=== PATIENT | female | born 1970 | race Caucasian/White ===

== ENCOUNTER 2022-10-07 13:46 | Outpatient (OUT) | payer BC, SELFPAY | END 2022-10-07 13:47 | disposition home or self-care (01) | LOC: PST 13:46 | PROVIDERS: PCP Family Medicine; Visit Provider Surgery | DX: Z01.818 Encounter for other preprocedural examination (principal); R10.32 Left lower quadrant pain; R19.4 Change in bowel habit ==

== ENCOUNTER 2023-01-06 09:33 | Emergency (ER) | payer BC, SELFPAY ==
[2023-01-06 09:39] VITALS: BP 145/81; PULSE 73; RESP 18; TEMP 36.8; O2SAT 98; BMI 31.8
[2023-01-06 10:59] VITALS: BP 149/77; PULSE 89; RESP 20; O2SAT 98
--- NOTE | 2023-01-06 11:07 | ED_ITS ---
HPI - Dental/Oral General Chief complaint: Dental/Oral Stated complaint: TOOTH PAIN Time Seen by Provider: 01/06/23 09:37 Source: patient Mode of arrival: walk-in Limitations: no limitations History of Present Illness HPI Narrative: the patient developed pain in the right upper rear molar a few days ago and it has steadily worsened before becoming much worse this morning. She tried calling her primary care provider and could not get an appointment. She called a dentist and has no appointment on Tuesday, January 10 but the dentist instructed her to come to the emergency department to get started on antibiotics and received medicines for pain. The patient did not take anything for pain this morning She denied any dental injury or fracture. She suspects she has a cavity or some other means of enamel compromise and is causing the pain. No facial swelling, lower jaw pain or neck pain. Related Data Home Medications Medication Instructions Recorded Confirmed citalopram 20 mg tablet 20 mg PO QDAY 10/07/22 10/07/22 linaclotide 145 mcg capsule 145 mcg PO QDAY 10/07/22 10/07/22 (Linzess) Previous Rx's Medication Instructions Recorded clindamycin HCl 150 mg capsule 450 mg PO Q8H 7 days #63 caps 01/06/23 (Cleocin HCl) nabumetone 750 mg tablet 750 mg PO BID PRN pain #14 tabs 01/06/23 Allergies Allergy/AdvReac Type Severity Reaction Status Date / Time No Known Drug Allergies Allergy Verified 10/07/22 13:30 [facility] Medical History (Updated 01/06/23 @ 11:06 by Adi Small) Anemia ?D64.9 - Anemia, unspecified (ICD-10) Anxiety ?F41.9 - Anxiety disorder, unspecified (ICD-10) Change in bowel habits ?R19.4 - Change in bowel habit (ICD-10) Chronic fatigue syndrome ?G93.32 - Myalgic encephalomyelitis/chronic fatigue syndrome (ICD-10) Gestational diabetes ?O24.419 - Gestational diabetes mellitus in , unspecified control (ICD-10) Kidney stones ?N20.0 - Calculus of kidney (ICD-10) Left lower quadrant pain ?R10.32 - Left lower quadrant pain (ICD-10) Migraine ?G43.909 - Migraine, unspecified, not intractable, without status migrainosus (ICD-10) Surgical History (Updated 10/07/22 @ 13:36 by Reba Nelson NP) History of colonoscopy ?Z98.890 - Other specified postprocedural states (ICD-10) History of hysterectomy ?Z90.710 - Acquired absence of both cervix and uterus (ICD-10) History of spinal surgery ?Z98.890 - Other specified postprocedural states (ICD-10) History of tonsillectomy ?Z90.89 - Acquired absence of other organs (ICD-10) Family History (Updated 10/07/22 @ 13:36 by Reba Nelson NP) Other CHF (congestive heart failure) Family history of colon cancer Family history of hypertension Family history of leukemia Family history of ovarian cancer Social History (Updated 10/07/22 @ 13:31 by Reba Nelson NP) Within the past year, how often did you have a drink containing alcohol: never Score interpretation: A score less than 3 is consistent with normal alcohol consumption. Smoking status: Current every day smoker What tobacco products do you use: cigarettes Pack-years instructions: Please document either packs per day or cigarettes per day in order for pack years to calculate correctly. If using both packs per day and cigarettes per day, please make sure that they denote the same thing. If they differ, pack- years will calculate based on packs per day. 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 Head: Atraumatic and normocephalic. Eyes: Normal conjunctiva ENT: The oropharynx is normal. No pharyngeal erythema, uvular edema, tonsillar exudates, asymmetry or trismus. Uvula is midline. Mouth is normal to inspection with the exception of a pain on percussion of the tooth #1 with evidence of dental caries. There is no evidence of facial asymmetry or abscess formation. Floor of the mouth is soft. No tenderness in the submental or submandibular space. No tongue elevation or deviation. The patient has no evidence of periapical abscess, gingivitis or other acute pathology. Airway is patent. Neck: The neck demonstrates normal range of motion. No meningeals signs are present. No stridor. No masses or lymphandenopathy noted. Respiratory: No acute distress, lungs are clear to auscultation, no wheezing, rhonchi, or rales noted. No stridor or retractions are noted. Cardiovascular: Regular rate and rhythm Skin: The skin exam shows no evidence of rashes Neuro: Alert and oriented x4, normal speech Lymphatic: No cervical lymphadenopathy Constitutional Vital Signs, click to edit/add: Last Vital Signs Temp 98.2 F 01/06/23 09:39 Pulse 89 01/06/23 10:59 Resp 20 01/06/23 10:59 BP 149/77 H 01/06/23 10:59 Pulse Ox 98 01/06/23 10:59 Course Vital Signs Vital signs: Vital Signs Temperature 98.2 F 01/06/23 09:39 Pulse Rate 73 01/06/23 09:39 Respiratory Rate 18 01/06/23 09:39 Blood Pressure 145/81 H 01/06/23 09:39 Pulse Oximetry 98 01/06/23 09:39 Temperature 98.2 F 01/06/23 09:39 Pulse Rate 89 01/06/23 10:59 Respiratory Rate 20 01/06/23 10:59 Blood Pressure 149/77 H 01/06/23 10:59 Pulse Oximetry 98 01/06/23 10:59 MDM - Dental/Oral MDM Narrative Medical decision making narrative: a she was given topical dental anesthetic paste and a discharged home with prescriptions for minimize sent and [facility] pharmacy of choice. Giardia is dental appointment on Tuesday, January 10 she was encouraged to keep that appointment. We also discussed smoking cessation Smoking Cessation Time spent discussing smoking cessation with patient: 3 to 10 minutes Discharge Plan Discharge Chief Complaint: Dental/Oral Clinical Impression: Dental caries, Toothache Patient Disposition: Home, Self-Care Time of Disposition Decision: 11:03 Prescriptions / Home Meds: New clindamycin HCl [Cleocin HCl] 150 mg capsule 450 mg PO Q8H 7 Days Qty: 63 0RF nabumetone 750 mg tablet 750 mg PO BID PRN (Reason: pain) Qty: 14 0RF No Action citalopram 20 mg tablet 20 mg PO QDAY Linzess 145 mcg capsule 145 mcg PO QDAY Instructions: Toothache (ED) Additional Instructions: patient has dentist appointment 01/10 and was encouraged to keep that. Stand Alone Forms: Portal Instructions
[2023-01-06] MEDS: BENZOCAINE 30 ML, lidocaine HCL 15 ML MM (11:10)
== END 2023-01-06 11:15 | disposition home or self-care (01) ==
PROVIDERS: Emergency Provider Emergency Medicine; PCP Family Medicine
DX: K02.9 Dental caries, unspecified (principal); K08.89 Other specified disorders of teeth and supporting structures; F41.9 Anxiety disorder, unspecified; Z87.442 Personal history of urinary calculi; Z90.710 Acquired absence of both cervix and uterus; F17.210 Nicotine dependence, cigarettes, uncomplicated
CPT/HCPCS: 99282

== ENCOUNTER 2024-08-07 21:29 | Emergency (ER) | payer BC, SELFPAY ==
[2024-08-07 21:35] VITALS: BP 121/75; PULSE 96; TEMP 36.9; O2SAT 98; BMI 27.6
--- OUTSIDE RECORDS SUMMARY | 2024-08-07 21:40 | XMS_ITS | Encounter Summary ---
Author Organization [facility] Address [address] [place] [address] Care Team Providers Care Senior Investment Manager Name Role Phone Patrci George MD Primary Care Provider [phone] Patric George MD Unavailable [phone] Reason for Visit * Reason Onset Date Comments Med Refill 08/03/2024 Encounter Details Date Type Department Care Team (Late st Contact Info) Description 08/03/2024 Refill [facility] [address] [place] [id number] Patric George MD [address] [place] [address] Drug-induced constipation Social History Tobacco Use Types Packs/Day Years Used Date Smoking Tobacco: Every Day Cigarettes 0.3 40 Passive Smoke Exposure: Current Smokeless Tobacco: Never Alcohol Use Standard Drinks/Week Comments Not Currently 0 (1 standard drink = 0.6 oz pur e alcohol) caffeine: 3-4 cups per day [id number] Health Literacy Answer Date Recor ded How often do you need to hav e someone help you when you read instructions, pamphlets, or other written material from your doctor or pharmacy? Never 03/29/2024 Humiliation, Afraid, Rape, and Kick questionnair e Answer Date Recorded Within the last year, have y ou been afraid of your partner or ex-partner? No 02/17/2023 Within the last year, have y ou been humiliated or emotionally abused in other ways by your partner or ex-partner? Yes Within the last year, have y ou been kicked, hit, slapped, or otherwise physically hurt by your partner or ex-partner? No 02/17/2023 Within the last year, have y ou been raped or forced to have any kind of sexual activity by your partner or ex-partner? No 02/17/2023 Social Connection and Isolat ion Panel [NHANES] Answer Date Recorded In a typical week, how many times do you talk on the phone with family, friends, or neighbors? More than three times a week 03/29/2024 How often do you get togethe r with friends or relatives? Once a week 03/29/2024 How often do you attend chur or congregational services? Never 03/29/2024 Do you belong to any clubs o r organizations such as latter day groups, unions, fraternal or athletic groups, or school groups? No 03/29/2024 How often do you attend meet ings of the clubs or organizations you belong to? Patient declined 03/29/2024 Are you , , di vorced, , never , or living with a partner? 03/29/2024 AUDIT-C Answer Date Recorded Q1: How often do you have a drink containing alc ohol? Monthly or less 03/29/2024 Q2: How many drinks containi ng alcohol do you have on a typical day when you are drinking? 1 or 2 03/29/2024 Q3: How often do you have si x or more drinks on one occasion? Never 03/29/2024 Overall Financial Resource Strain (CARDIA) Answe r Date Recorded How hard is it for you to pa y for the very basics like food, housing, medical care, and heating? Not hard at all 03/29/2024 [facility] Occupat [facility] - Occupational Stress Questionnaire Answer Date Recorded Do you feel stress - tense, restless, nervous, or anxious, or unable to sleep at night because your mind is troubled all the time - these days? To some extent 03/29/2024 Exercise Vital Sign Answer Date Recorde d On average, how many days pe r week do you engage in moderate to strenuous exercise (like a brisk walk)? 3 days 03/29/2024 On average, how many minutes do you engage in exercise at this level? 20 min 03/29/2024 Hunger Vital Sign Answer Date Recorded Within the past 12 months, y ou worried that your food would run out before you got the money to buy more. Never true 03/29/19 25 Within the past 12 months, t he food you bought just didn't last and you didn't have money to get more. Never true 03/29/2024 PRAPARE - Transportation Answer Date Re corded In the past 12 months, has l ack of transportation kept you from medical appointments or from getting medications? No 07/2024 In the past 12 months, has l ack of transportation kept you from meetings, work, or from getting things needed for daily living? No 03/29/2024 Housing Stability Vital Sign Answer Femi e Recorded In the last 12 months, was t here a time when you were not able to pay the mortgage or rent on time? No 02/17/2023 In the last 12 months, how many places have you lived? 1 02/17/2023 In the last 12 months, was t here a time when you did not have a steady place to sleep or slept in a fpc (including now)? No 02/17/2023 Housing Stability Vital Sign Answer Femi e Recorded In the last 12 months, was t here a time when you were not able to pay the mortgage or rent on time? No 03/29/2024 Number of Times Moved in the Last Year Not on fi le 03/29/2024 At any time in the past 12 m [place], were you homeless or living in a fpc (including now)? No 03/29/2024 Comments No Sex and Gender Information Value Date Recorded Sex Assigned at Not on file Legal Sex Female 6:45 PM EDT Gender Identity Not on file Sexual Orientation Not on file documented as of this encounter Plan of Treatment Upcoming Encounters Date Type Department Care Team (Late st Contact Info) Description 09/28/2024 3:45 PM EDT Office Visit [facility] [address] [place] [phone] Patric George MD [address] [place] [address] documented as of this encounter Visit Diagnoses Diagnosis Drug-induced constipation Other constipation documented in this encounter Care Teams Senior Investment Manager Relationship Specialty Start Date End Date Patric George MD [address] [place] [address] PCP - General Family Medicine 08/13/22 Patric George MD [address] [place] [id number] PCP - Keily Ngo 03/24/23 documented as of this encounter
--- OUTSIDE RECORDS SUMMARY | 2024-08-07 21:40 | XMS_ITS | Clinical Summary ---
Author Organization [facility] Address [address] [place] [address] Care Team Providers Care Lithograph Press Feeder Name Role Phone Unavailable Primary Care Provider Unavailabl e Allergies No known active allergies Medications No known medications Active Problems No known active problems Social History Tobacco Use Types Packs/Day Years Used Date Smoking Tobacco: Every Day Smokeless Tobacco: Never Comments Unknown Sex and Gender Information Value Date Recorded Sex Assigned at Not on file Legal Sex Female 10:56 AM EST Gender Identity Not on file Sexual Orientation Not on file Last Filed Vital Signs Vital Sign Reading Time Taken Comments Blood Pressure - - Pulse - - Temperature 35.9 C (96.7 F) 05/03/2017 11:13 AM EDT Respiratory Rate - - Oxygen Saturation - - Inhaled Oxygen Concentration - - Weight 78.9 kg (174 lb) 05/03/2017 11:13 AM EDT Height 160 cm (5' 3 ) 05/03/2017 11:13 AM EDT Body Mass Index 30.82 05/03/2017 11:13 AM EDT Plan of Treatment Not on file Insurance
--- OUTSIDE RECORDS SUMMARY | 2024-08-07 21:41 | XMS_ITS | Clinical Summary ---
Author Organization [facility] Address [id number] [address] [place] [address] Care Team Providers Care Acute Care Nurse Practitioner Name Role Phone Patric George MD Primary Care Provider [phone] Allergies No known active allergies Medications citalopram (CeleXA) 20 mg tablet 7 Active LINZESS 145 mcg capsule Take by mouth once daily. 3 7 Active naproxen (NAPROSYN) 500 mg tablet Take 500 mg by mouth every 12 (twelve) hours as needed. 2 7 Active tiZANidine (ZANAFLEX) 4 mg tablet TAKE 1 TABLET NEEDED EVERY 8 HRS ORALLY 1 7 Active potassium citrate (UROCIT-K) 10 mEq (1,080 mg) CR tablet Take 2 tablets (20 mEq total) by mouth 2 (two) times a day with meals. 120 tablet 2 7 Active Additional Information Patient not taking.Reported on 01/18/2018 HYDROcodone-payton taminophen (NORCO) 5-325 mg per tablet Take 1 tablet by mouth every 6 (six) hours as needed. 0 8 Active ketorolac (TORADOL) 10 mg tablet Take 10 mg by mouth every 8 (eight) hours as needed. 0 8 Active tamsulosin (FLOMAX) 0.4 mg capsule Take 1 capsule (0.4 mg total) by mouth nightly. 30 capsule 2 8 Active Active Problems Problem Noted Date Diagnosed Date Renal cyst 02/01/2018 Overview (02/01/2018): Right renal cyst on SCOTT report 02/01/18-- benign appearing per rads report--not mention on 12/2017 CT report from [place] Urethral stenosis 10/27/2016 Overview (10/27/2016): ==== 10/27/2016 ==== New problem, additional workup planned. status post urethral dilation. Improved urinary flow as well as decrease or resolved urgency frequency. Will continue to monitor. Urinary urgency 08/04/2016 Overview (08/04/2016): ==== 08/04/2016 ==== New problem, additional workup planned. Urgency frequency. At times have felt the fevers. Interestingly CT scan was read out as negative but my direct visualization there is a question whether not there is a distal calculus on the right side. PLAN: Cystoscopy in order to evaluate the bladder. Potential urethral dilation given urgency frequency. Also [facility] bladder solution to possibly help with her symptomatology. Nephrolithiasis 08/02/2016 Overview (02/01/2018): ==== 08/02/2016 ==== history of r ecurrent urinary tract infections - most recent urine culture negative. With the persistent lower urinary tract symptoms urgency frequency. All started after a stone episode 5 mm right side. No confirm passage of stone. Currently not on alpha-angel. Plan: Empiric treatment Flomax. Need CT stone protocol to rule out distal stone which could cause symptoms. ==== 08/04/2016 ==== She has new to her findings of a nonobstructing stone on the left as well. Right side I question a distal stone despite the radiologist reading. Plan: At time of cystoscopy performed retrograde pyelogram to evaluate the right ureter. KUB to see if stones could be visualized. Urine pH was 5.0. Opens possibility potential uric acid stones. ===01/18/18====5mm left distal ureteral stone on CT stone protocol 01/12/18 out of [facility]--we will have her get a KUB on the way out today and call her with results--if the ureteral stone is visible then the plan will be for spontaneous passage trial x2 weeks and if no stone passes then consider ureteroscopy/laser/stone extraction--if the stone is not visible on the KUB then we will have her follow up in a few weeks with a renal ultrasound to verify the obstruction has resolved--she is interested in pursuing elective treatment for the remaining intrarenal calculi on the left but again this will be predicated on whether not the stones are visible on plain film ===02/01/18===No further stone related symptoms--follow up SCOTT was negative for obstruction--u/a is negative today and KUB last visit was negative for ureteral stone--she does request to be proactive with her stone disease--discussed ESWL for remaining left intrarenal calculi vs ureteroscopy/laser/stone extraction/stent vs monitoring/surveillance--she would like to consider her options--I did order a metabolic work up (serum stone studies/[facility]) which will be reviewed at her f/u appt with Dr. Atkins in a few months Assessment & Plan (10/27/2016 4:09 PM EDT): CT scan reviewed as well as KUB image from fluoroscopy. I do not see any definitive calcifications on the KUB in the left side. Based on the CT the should be reasonably visible should they be calcified. Year previous urine pH was 5.0. Plan: Trial of alkalinization. Patient recorder numbers. Try to get her on the ideal dose and then repeat CT scan imaging at sometime Family History Medical History Relation Name Comments Kidney disease Father Cancer Mother ovarian cancer Relation Name Status Comments Father Mother Social History Tobacco Use Types Packs/Day Years Used Date Smoking Tobacco: Every Day Cigarettes Smokeless Tobacco: Never Alcohol Use Standard Drinks/Week Comments Yes 0 (1 standard drink = 0.6 oz pur e alcohol) occasional Childcare Answer Date Recorded Childcare Unknown 08/02/2018 Employment Answer Date Recorded Employment Unknown 08/02/2018 Purpose - Life Answer Date Recorded Purpose and direction in life Unknown Comments No Sex and Gender Information Value Date Recorded Sex Assigned at Not on file Legal Sex Female 11:23 AM EDT Gender Identity Not on file Sexual Orientation Not on file Last Filed Vital Signs Vital Sign Reading Time Taken Comments Blood Pressure 124/77 02/01/2018 11:20 AM EST Pulse 64 02/01/2018 11:20 AM EST Temperature 36.6 C (97.9 F) 02/01/2018 11:20 AM EST Respiratory Rate 16 10/27/2016 3:42 PM EDT Oxygen Saturation 97% 08/17/2016 9:51 AM EDT Inhaled Oxygen Concentration - - Weight 79.8 kg (176 lb) 02/01/2018 11:20 AM EST Height 162.6 cm (5' 4 ) 02/01/2018 11:20 AM EST Body Mass Index 30.21 02/01/2018 11:20 AM EST Plan of Treatment Health Maintenance Due Date Last Done Comments Depression Screening 1981 Tobacco Screening 1981 Adult BMI Screening 12/15/1987 DTaP,Tdap and Td Vaccines (1 - Tdap) 1988 Zoster (Shingles) Vaccine (1 of 2) 12/15/2019 Influenza Vaccine 10/22/2024 Medical Devices Not on file Insurance Care Teams Acute Care Nurse Practitioner Relationship Specialty Start Date End Date Patric George MD PCP - General 08/02/16
--- OUTSIDE RECORDS SUMMARY | 2024-08-07 21:41 | XMS_ITS | Clinical Summary ---
Author Organization [facility] Healthcare Address [address] [place] [address] Care Team Providers Care Placer Miner Name Role Phone Patric George MD Primary Care Provider [phone] Patric George MD Unavailable [phone] Allergies No known active allergies Medications divalproex (Depakote) 500 MG EC tabletIndication s:Chronic migraine without aura without status migrainosus, not intractable TAKE 1 TABLET BY MOUTH IN THE MORNING, DO NOT CRUSH, CHEW, OR SPLIT 90 tablet 1 03/27/19 25 Active citalopram (CeleXA) 20 MG tabletIndication s:Anxiety TAKE 1 TABLET BY MOUTH EVERY DAY 90 tablet 1 04/18/19 25 Active SUMAtriptan (Imitrex) 100 MG tabletIndication s:Chronic migraine without aura without status migrainosus, not intractable Take 1 tablet (100 mg) by mouth 1 (one) time if needed for migraine 18 tablet 1 04/24/19 25 026 Active estradiol (Estrace) 0.1 MG/GM vaginal creamIndications :Dyspareunia in female,Vaginal atrophy,Vaginal dryness, menopausal Insert 1 g into the vagina See administration instructions Insert 1 gram in vagina daily for 2 weeks. 1 g every other day for 2 weeks. 1 g twice weekly there after. 42.5 g 2 05/16/19 25 Active phentermine (Adipex-P) 37.5 MG tabletIndication s:Obesity (BMI 30.0-34.9) Take 1 tablet (37.5 mg) by mouth in the morning. Take before meals. 90 tablet 06/29/19 25 Active linaCLOtide (Linzess) 290 MCG capsuleIndicatio ns:Drug-induced constipation Take 1 capsule (290 mcg) by mouth in the morning. Take before meals. Do not crush or chew. 90 capsule 3 08/07/19 25 026 Active linaCLOtide (Linzess) 290 MCG capsuleIndicatio ns:Drug-induced constipation Take 1 capsule (290 mcg) by mouth in the morning. Take before meals. Do not crush or chew.. 90 capsule 3 05/01/19 25 025 Discontin ued(Reord er) Active Problems Problem Noted Date Diagnosed Date Anxiety 08/13/2022 Chronic fatigue syndrome 08/13/2022 Chronic pansinusitis 08/13/2022 Chronic sinusitis 08/13/2022 Cigarette smoker 08/13/2022 History of hysterectomy 08/13/2022 Irritable bowel syndrome with constipation 08/13 Migraine without aura and wi thout status migrainosus, not intractable 08/13/2022 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08/13/2022 Obesity (BMI 30.0-34.9) 08/13/2022 Other chronic pain 08/13/2022 Resolved Problems Problem Noted Date Diagnosed Date Resolved Date Irritable bowel syndrome with constipation 02/26/2018 10/21/2022 Encounters Date Type Department Care Team Description 08/03/2024 Refill [facility] [address] [place] [address] Patric George MD Drug-induced constipation 06/28/2024 3:45 PM EDT Office Visit [facility] [address] [place] [id number] Patric George MD Irritable bowel syndrome with constipation (Primary Dx); Obesity (BMI 30.0-34.9) 06/28/2024 Bamboo flowsheet [facility] [address] [place] [phone] Patric George MD 06/28/2024 Travel 06/20/2024 Orders Only [facility] [address] [place] [phone] Patric George MD Cystocele, unspecified 05/23/2024 Refill [facility] [address] [place] [address] Patric George MD Obesity (BMI 30.0-34.9) 05/15/2024 10:00 AM EDT Office Visit [facility] [address] MICHELLE D [facility] [address] [place] [address] Majo Roger, Dyspareunia in female (Primary Dx); Vaginal atrophy; Vaginal dryness, menopausal; Cystocele, midline; Hx of hysterectomy for benign disease; Cigarette smoker 05/15/2024 Travel from Last 3 Months Immunizations Immunization Administration Dates Next Due Influenza, injectable, quadrivalent, preservativ e free 01/11/2022,01/08/2021 Influenza, recombinant, quad rivalent, injectable, preservative free 11/04/2023 Influenza, seasonal, intradermal, preservative f ree 11/19/2019 Moderna Bivalent Booster Vaccination 01/11/2022 Family History Medical History Relation Name Comments COPD Brother 2 G Depression Brother 2 G Mental illness Brother 2 G Hearing loss Father B Heart disease Father B Kidney failure Father B Vision loss Father B Cancer Mother S Hypertension Mother S Ovarian cancer Mother S Arthritis Paternal Grandmother R Alcohol abuse Sister 2 G Relation Name Status Comments Brother 1 x2 Brother 2 G Father B Mother S Other Spouse Alive Paternal Grandmother R Sister 1 x1 Sister 2 G Son Alive Social History Tobacco Use Types Packs/Day Years Used Date Smoking Tobacco: Every Day Cigarettes 0.3 40 Passive Smoke Exposure: Current Smokeless Tobacco: Never Tobacco Cessation:Ready to Q uit: Not Asked; Counseling Given: Not Answered Alcohol Use Standard Drinks/Week Comments Not Currently [...] How often do you attend chur or rastafarian services? Never 03/29/2024 Do you belong to any clubs o r organizations such as nondenominational groups, unions, fraternal or athletic groups, or [...] and heating? Not hard at all 03/29/2024 [facility] [place] [facility] - Occupational Stress [...] place to sleep or slept in a detention (including now)? No 02/17/2023 Housing Stability Vital Sign Answer Femi e Recorded In the last 12 months, was t here a time when you were not able to pay the mortgage or rent on time? No 03/29/2024 Number of Times Moved in the Last Year Not on fi le 03/29/2024 At any time in the past 12 m [facility], were you homeless or living in a detention (including now)? No 03/29/2024 Comments No Sex and Gender Information Value Date Recorded Sex Assigned at Not on file Legal Sex Female 6:45 PM EDT Gender Identity Not on file Sexual Orientation Not on file Last Filed Vital Signs Vital Sign Reading Time Taken Comments Blood Pressure 120/72 06/28/2024 3:55 PM EDT Pulse 87 06/28/2024 3:55 PM EDT Temperature 36.8 C (98.2 F) 06/28/2024 3:55 PM EDT Respiratory Rate - - Oxygen Saturation 98% 06/28/2024 3:55 PM EDT Inhaled Oxygen Concentration - - Weight 72.6 kg (160 lb) 06/28/2024 3:55 PM EDT Height 160 cm (5' 3 ) 06/28/2024 3:55 PM EDT Body Mass Index 28.34 06/28/2024 3:55 PM EDT Plan of Treatment Upcoming Encounters Date Type Department Care Team (Late st Contact Info) Description 09/28/2024 3:45 PM EDT Office Visit [facility] [address] [place] [place] [address] Patric George MD [address] [place] [address] Health Maintenance Due Date Last Done Comments CT Colonography 1969 FIT-DNA 1969 FIT 1969 FOBT 1969 Sigmoidoscopy 1969 Mammogram 03/15/2025 03/15/2024, 03/25/2022 Colonoscopy 04/23/2034 04/23/2024 Colorectal Cancer Screening 04/23/2034 Influenza Vaccine Completed 11/04/2023, , 01/08/2021, Additional history exists Procedures Procedure Name Priority Date/Time Associated Diagnosis Comments AMB REFERRAL TO OB-HEARING AID REPAIRER Routine 2:11 PM EDT Cystocele, unspecified BI MAMMOGRAM SCREENING TOMOSYNTHESIS BILATERAL Routine 03/15/2024 10:04 AM EST Encounter for screening mammogram for breast cancer from Last 3 Months or Most Recently Relevant to Health Maintenance Results * Ambulatory referral to Obstetrics / Gynecology (06/20/2024 2:11 PM EDT) Patric George MD OUTPATIENT REFERRAL ORDERABLES Final Result * (ABNORMAL) Bilateral screening mammogram with tomosynthesis (03/15/2024 10:04 AM EST) Anatomical Region Laterality Modality Breast Bilateral Mammography 03/15/2024 11:1 9 AM EST Impressions 03/15/2024 11:37 AM EST Impression: Ill-defined asymmetric density suggested in the left breast as described. Follow-up diagnostic mammogram study of the left breast with views suggested above as well as ultrasound study of the left breast with views suggested above recommended for further evaluation. BIRADS 0 - Incomplete: Needs Additional Imaging Evaluation DENSITY: The breasts are almost entirely fatty. FOLLOW-UP: Additional Imaging Diagnostic Mammogram, ultrasound ELECTRONICALLY SIGNED BY: Jose Busch M.D. Narrative 03/15/2024 11:37 AM EST Examination: BI MAMMOGRAM SCREENING TOMOSYNTHESIS BILATERAL Clinical History: screening Technique: Screening digital mammography study of both breasts was performed with 2-D and 3-D tomosynthesis imaging. No prior study available for comparison. Findings: Approximately 1.3 cm ill-defined area of asymmetric density in the mid/upper portion of the left breast on the MLO view. The finding is questionably identified laterally is an ill-defined area of asymmetric density on the cc view. Follow-up diagnostic mammogram study of the left breast as well as ultrasound study of the left breast recommended for further evaluation. At the diagnostic setting coned-down compression views as well as true lateral view of the left breast should be obtained. At the ultrasound setting images may be obtained from the 12:00 to the 4 o'clock position. Axillary lymph nodes are noted on the left, partially visualized axillary lymph node suggested on the right. Patric George MD IMG BI PROCEDURES Final Result from Last 3 Months or Most Recently Relevant to Health Maintenance Insurance BS Care Teams Placer Miner Relationship Specialty Start Date End Date Patric George MD [address] [place] [address] PCP - General Family Medicine 08/13/22 Patric George MD [address] [place] [address] PCP - [facility] 03/24/23
--- OUTSIDE RECORDS SUMMARY | 2024-08-07 21:41 | XMS_ITS | Clinical Summary ---
Author Organization [facility] Address [address] [place] [address] Care Team Providers Care Industrial Arts Teacher Name Role Phone Mikey Ng Primary Care Provider [phone] Allergies No known active allergies Family History Medical History Relation Comments Allergies Brother Allergies Child Thyroid Father Breast Cancer Maternal Aunt Hypertension Mother Colon Cancer Paternal Grandfather Alzheimer's Disease Paternal Grandmother Allergies Other patinet allergic to cats and mold spores Relation Status Comments Brother Child Father Maternal Aunt Mother Paternal Grandfather Paternal Grandmother Other Social History Tobacco Use Types Packs/Day Years Used Date Smoking Tobacco: Every Day Cigarettes Alcohol Use Standard Drinks/Week Comments Yes 0 (1 standard drink = 0.6 oz pur e alcohol) occasional Comments No Sex and Gender Information Value Date Recorded Sex Assigned at Not on file Legal Sex Female 8:07 AM EST Gender Identity Not on file Sexual Orientation Not on file Last Filed Vital Signs Vital Sign Reading Time Taken Comments Blood Pressure 100/68 06/28/2006 11:14 AM EDT Pulse - - Temperature - - Respiratory Rate - - Oxygen Saturation - - Inhaled Oxygen Concentration - - Weight 67.6 kg (149 lb) 06/28/2006 11:14 AM EDT Height 160 cm (5' 3 ) 06/28/2006 11:14 AM EDT Body Mass Index 26.39 06/28/2006 11:14 AM EDT Plan of Treatment Health Maintenance Due Date Last Done Comments Anxiety Screening 12/15/1987 Depression Screening 12/15/1987 HIV Screening 12/15/1987 Hepatitis C Screening 12/15/1987 DTaP,Tdap,Td Vaccine (1 - Tdap) 1988 Hepatitis B Vaccine (1 of 3 - 19+ 3-dose series) 12/14 Cervical Cancer Screening [address] Colonography 2014 Cologuard (FIT-DNA) 2014 Colonoscopy 2014 Colorectal Cancer Screening 2014 Diabetes Screening 2014 Fecal Occult Blood 2014 Lipid Screening 2014 Sigmoidoscopy 2014 Pneumococcal Vaccine: 50+ (1 of 1 - PCV) 12/15/2019 Shingrix Vaccine (1 of 2) 12/15/2019 Covid-19 Vaccine (1 - 2023- season) 2023 Influenza Vaccine (Season Ended) 2024 Insurance [facility] PPO Care Teams Industrial Arts Teacher Relationship Specialty Start Date End Date [place], [place] [id number] PCP - General 05/23/06
--- OUTSIDE RECORDS SUMMARY | 2024-08-07 21:44 | XMS_ITS | CCD ---
Author Organization [facility] Care Team Providers Care Precision Grinder Name Role Phone KAL JACINTO Consulting Unavailable KAL JACINTO Admitting Unavailable ROSE, HILDA Primary Care Unavailable KAL JACINTO Attending Unavailable HILDA MAY Attending Unavailable ROSE, HILDA Primary Care Unavailable HILDA MAY Admitting Unavailable Aziza Segal Primary Care Physician Hilda May MD Unavailable Aziza Segal MD Primary Care Provider [phone] Aziza Segal MD Unavailable Hilda May MD Unavailable Apolinar RADER Attending Unavailable NILLApolinar Referring Unavailable NILLApolinar Admitting Unavailable NILLApolinar Attending Unavailable NILLApolinar Attending Unavailable AZIZA SEGAL Referring Unavailable AZIZA SEGAL Attending Unavailable AZIZA SEGAL Attending Unavailable AZIZA SEGAL Attending Unavailable MAJO ROGER Attending Unavailable AZIZA SEGAL Attending Unavailable AZIZA SEGAL Attending Unavailable AZIZA SEGAL Attending Unavailable Allergies Allergy Classification Reported Allergen(s) Allergy Type Date of Onset Reaction(s) Facility (1 source) No Known Medication Allergies; Translations: [No Known Medication Allergies] Propensity to adverse reactions (disorder) [facility] Repository Medications Current Medications Medication Drug Class(es) Dates Sig (Normalized) Sig (Original) citalopram 20 mg oral tablet (20 sources) Serotonin Reuptake Inhibitor Start: 08-23-2022 End: 04-18-2024 take 1 tablet by mouth once daily citalopram (CeleXA) 20 MG tablet Indications: Anxiety TAKE 1 TABLET BY MOUTH EVERY DAY 90 tablet 1 04/18/2024 Active estradiol 0.1 mg/ml vaginal cream (5 sources) Estrogen Start: 05-15-2024 estradiol (Estrace) 0.1 MG/GM vaginal cream Indications: Dyspareunia in female , Vaginal atrophy , Vaginal dryness, menopausal Insert 1 g into the vagina See administration instructions Insert 1 gram in vagina daily for 2 weeks. 1 g every other day for 2 weeks. 1 g twice weekly there after. 42.5 g 2 05/15/2024 Active magnesium oxide 400 mg oral tablet (2 sources) Start: 03-27-2024 take 2 tablets by mouth once daily magnesium oxide 400 mg Tab 800 mg = 2 tab(s), Oral, Daily, Refills(s) 0, Prophylaxis Start Date: 03/27/24 Status: Ordered ondansetron 4 mg oral tablet (2 sources) Serotonin-3 Receptor Antagonist Start: 03-27-2024 take 1 tablet by mouth every six hours as needed for nausea Zofran 4 mg Tab 4 mg = 1 tab(s), Oral, q6hr, PRN Nausea, take as needed day of bowel prep, # 8 tab(s), Refills(s) 0, Pharmacy: [facility]/pharmacy #[id number], 160, cm, 03/27/24 15:27:00 EST, Height/Length Dosing, 73.6, kg, 03/27/24 15:27:00 EST, Weight Dosing Start Date: 03/27/24 Status: Ordered phentermine hydrochloride 37.5 mg oral tablet (20 sources) Sympathomimetic Amine Anorectic Start: 05-28-2024 End: 06-28-2024 take 1 tablet by mouth before mealtime phentermine (Adipex-P) 37.5 MG tablet Indications: Obesity (BMI 30.0-34.9) Take 1 tablet (37.5 mg) by mouth in the morning. Take before meals. 90 tablet 06/28/2024 Active Start: 04-23-2024 End: 05-23-2024 take 1 tablet by mouth before mealtime phentermine (Adipex-P) 37.5 MG tablet Indications: Obesity (BMI 30.0-34.9) Take 1 tablet (37.5 mg) by mouth in the morning. Take before meals. 30 tablet 2 04/23/2024 05/23/2024 Discontinued (Reorder) Start: 03-07-2024 End: 04-19-2024 take 1 tablet by mouth before mealtime phentermine (Adipex-P) 37.5 MG tablet Indications: Obesity (BMI 30.0-34.9) Take 1 tablet (37.5 mg) by mouth in the morning. Take before meals. 30 tablet 2 04/23/2024 Active Start: 02-07-2024 take 1 tablet by aaron th before mealtime phentermine (Adipex-P) 37.5 MG tablet Indications: Obesity (BMI 30.0-34.9) Take 1 tablet (37.5 mg) by mouth in the morning. Take before meals. 30 tablet 02/07/2024 Active Start: 09-29-2023 End: 02-02-2024 take 1 tablet by mouth before mealtime phentermine (Adipex-P) 37.5 MG tablet Indications: Obesity (BMI 30.0-34.9) Take 1 tablet (37.5 mg) by mouth in the morning. Take before meals. 30 tablet 11/04/2023 Active SUMAtriptan 100 mg oral tablet (20 sources) Serotonin-1b and Serotonin-1d Receptor Agonist Start: 02-17-2023 End: 04-23-2025 take 1 tablet by mouth once SUMAtriptan (Imitrex) 100 MG tablet Indications: Chronic migraine without aura without status migrainosus, not intractable Take 1 tablet (100 mg) by mouth 1 (one) time if needed for migraine 18 tablet 1 04/23/2024 04/23/2025 Active tiZANidine 4 mg oral tablet (8 sources) Central alpha-2 Adrenergic Agonist Start: 08-23-2022 End: 04-04-2023 take 1 tablet by mouth every eight hours as needed tiZANidine 4 mg Tab 4 mg = 1 tab(s), Oral, q8hr, PRN as needed, Refills(s) 0 Start Date: 08/23/22 Status: Ordered divalproex sodium 500 mg delayed release oral tablet (20 sources) Mood Stabilizer, Anti-epileptic Agent Start: 04-04-2023 End: 04-03-2024 take 1 tablet by mouth in the morning divalproex (Depakote) 500 MG EC tablet Indications: Chronic migraine without aura without status migrainosus, not intractable TAKE 1 TABLET BY MOUTH IN THE MORNING, DO NOT CRUSH, CHEW, OR SPLIT 90 tablet 1 03/27/2024 Active Start: 02-17-2023 End: 02-17-2024 take 1 tablet by mouth in the morning divalproex (Depakote) 250 MG EC tablet Indications: Chronic migraine without aura without status migrainosus, not intractable (CMS/HCC) Take 1 tablet (250 mg) by mouth in the morning. Do not crush, chew, or split.. 90 tablet 3 02/17/2023 04/04/2023 Discontinued (Dose adjustment) Completed/Discontinued Medications Medication Drug Class(es) Dates Sig (Normalized) Sig (Original) [id number] 200 actuat albuterol 0.09 mg/actuat metered dose inhaler (2 sources) beta2-Adrenergic Agonist Start: 02-24-2022 End: 02-17-2023 take 2 puff(s) by inhalation every four to six hours as needed for cough albuterol HFA 90 mcg/act inhaler INHALE 2 PUFFS NEEDED EVERY 4 TO 6 HOURS FOR COUGH 02/24/2022 02/17/2023 Discontinued doxycycline hyclate 100 mg oral capsule (2 sources) Tetracycline-class Drug Start: 08-28-2021 End: 02-17-2023 take 1 capsule by mouth every twelve hours doxycycline (Vibramycin) 100 MG capsule 1 capsule every 12 (twelve) hours. 08/28/2021 02/17/2023 Discontinued fluconazole 150 mg oral tablet (2 sources) Azole Antifungal End: 02-17-2023 fluconazole (Diflucan) 150 MG tablet 1 (one) time each day at the same time. 02/17/2023 Discontinued fluticasone propionate 0.05 mg/actuat metered dose nasal spray (2 sources) Corticosteroid End: 02-17-2023 take 2 spray(s) nasal route once daily fluticasone ([facility] Fluticasone Propionate) 50 MCG/ACT nasal spray USE 2 SPRAYS IN EACH NOSTRIL ONCE A DAY for 30 02/17/2023 Discontinued linaclotide 0.29 mg oral capsule (20 sources) Guanylate Cyclase-C Agonist Start: 03-07-2024 take 1 capsule by mouth once daily Linzess 290 mcg oral capsule 290 mcg = 1 cap(s), Oral, Daily, Refills(s) 0, Constipation Start Date: 03/07/24 Status: Ordered Start: 05-23-2023 End: 08-06-2025 take 1 capsule by mouth before mealtime linaCLOtide (Linzess) 290 MCG capsule Indications: Drug-induced constipation Take 1 capsule (290 mcg) by mouth in the morning. Take before meals. Do not crush or chew.. 90 capsule 3 04/30/2024 08/03/2024 Discontinued (Reorder) Start: 10-21-2022 End: 10-21-2023 take 1 capsule by mouth before mealtime Linzess 145 MCG capsule Indications: Irritable bowel syndrome with constipation Take 1 capsule (145 mcg) by mouth in the morning. Take before meals. 90 capsule 3 10/21/2022 05/13/2023 Discontinued (Reorder) Start: 08-23-2022 take 2 capsules by m outh once daily Linzess 145 mcg oral capsule 290 mcg = 2 cap(s), Oral, Daily, Refills(s) 0 Start Date: 08/23/22 Status: Ordered nabumetone 750 mg oral tablet (7 sources) Nonsteroidal Anti-inflammatory Drug Start: 01-12-2023 End: 01-12-2024 take 1 tablet by mouth twice daily as needed for pain nabumetone (Relafen) 750 MG tablet Indications: Other chronic pain Take 1 tablet (750 mg) by mouth 2 (two) times a day as needed for mild pain. 14 tablet 2 01/12/2023 09/29/2023 Discontinued 24 hr propranolol hydrochloride 60 mg extended release oral capsule (2 sources) beta-Adrenergic Harriett End: 02-17-2023 propranolol LA (Inderal LA) 60 MG 24 hr capsule 1 capsule 1 (one) time each day at the same time. 02/17/2023 Discontinued triamcinolone acetonide 1 mg/ml topical cream (7 sources) Corticosteroid Start: 02-17-2023 End: 04-04-2023 triamcinolone (Kenalog) 0.1 % cream Indications: Lichen planus Apply topically 2 (two) times a day as needed (pain and swelling) 80 g 1 02/17/2023 04/04/2023 Discontinued (Therapy completed) Problems Active Problems Problem Classification Problem Date Documented Da te Episodic/Chronic Abdominal pain (5 sources) Left lower quadrant pain; Translations: [Left lower quadrant pain] Onset: 09-07-2022 Episodic Anxiety disorders (20 sources) Anxiety; Translations: [Anxiety disorder, unspecified] Onset: 08-13-2022 08-23-2022 Chronic Headache; including migraine (20 sources) Migraine; Translations: [Migraine without aura, not refractory ] Onset: 08-13-2022 08-23-2022 Chronic Immunizations and screening for infectious disease (2 sources) Vaccination needed; Translations: [Encounter for immunization] 11-04-2023 Episodic Malaise and fatigue (20 sources) Chronic fatigue syndrome; Translations: [Chronic fatigue syndrome] Onset: 08-13-2022 08-23-2022 Chronic Other aftercare (2 sources) Taking high risk medication; Translations: [Other longterm (current) drug therapy] 11-08-2023 Episodic Other and unspecified benign neoplasm (1 source) Polyp of colon; Translations: [Polyp of colon] Onset: 04-23-2024 Episodic Other gastrointestinal disorders (20 sources) Irritable bowel syndrome characterized by constipation; Translations: [Irritable bowel syndrome with constipation] Onset: 02-26-2018 Resolved: 10-21-2022 Chronic Other gastrointestinal disorders (5 sources) Altered bowel function; Translations: [Change in bowel habit] Onset: 09-07-2022 Episodic Other gastrointestinal disorders (4 sources) Drug-induced constipation; Translations: [Drug induced constipation] 01-23-2024 Episodic Other inflammatory condition of skin (8 sources) Lichen planus; Translations: [Lichen planus, unspecified] 03-24-2023 Episodic Other nervous system disorders (20 sources) Chronic pain; Translations: [Other chronic pain] Onset: 08-13-2022 08-13-2022 Chronic Other nutritional; endocrine; and metabolic disorders (1 source) Body mass index 30+ - obesity 09-07-2022 Chronic Other nutritional; endocrine; and metabolic disorders (1 source) Obesity 08-23-2022 Chronic Other nutritional; endocrine; and metabolic disorders (20 sources) Obese class I; Translations: [Obesity, unspecified] Onset: 08-13-2022 08-13-2022 Chronic Other nutritional; endocrine; and metabolic disorders (2 sources) Obesity caused by energy imbalance; Translations: [Class 1 obesity due to excess calories without serious comorbidity with body mass index (BMI) of 31.0 to 31.9 in adult] 03-02-2023 Chronic Other nutritional; endocrine; and metabolic disorders (2 sources) Weight loss; Translations: [Abnormal weight loss] 11-08-2023 Episodic Other nutritional; endocrine; and metabolic disorders (2 sources) Overweight 03-27-2024 Episodic Other nutritional; endocrine; and metabolic disorders (2 sources) Overweight in adulthood with body mass index of 25 or more but less than 30 03-27-2024 Episodic Other screening for suspected conditions (not mental disorders or infectious disease) (4 sources) Patient encounter status; Translations: [Encounter for screening mammogram for malignant neoplasm of breast] 11-04-2023 Episodic Other skin disorders (2 sources) Eruption; Translations: [Rash and other nonspecific skin eruption] 03-24-2023 Episodic Other upper respiratory infections (20 sources) Chronic pansinusitis; Translations: [Chronic pansinusitis] Onset: 08-13-2022 08-13-2022 Chronic Prolapse of female genital organs (4 sources) Herniated urinary bladder; Translations: [Cystocele, unspecified] 01-02-2024 Chronic Spondylosis; intervertebral disc disorders; other back problems (2 sources) Pain in the coccyx; Translations: [Sacrococcygeal disorders, not elsewhere classified] 12-07-2023 Episodic Substance-related disorders (20 sources) Smoker; Translations: [Cigarette smoker ] Onset: 08-13-2022 08-23-2022 Chronic Unclassified (3 sources) CONTACT W/AND (SUSP) EXPOS COVID-19; Translations: [CONTACT W/AND (SUSP) EXPOS COVID-19] Onset: 03-01-2021 Past or Other Problems Problem Classification Problem Date Documented Da te Episodic/Chronic Other diseases of bladder and urethra (3 sources) Urethral stenosis Onset: 10-27-2016 08-23-2022 Episodic Other diseases of kidney and ureters (3 sources) Cyst of kidney Onset: 02-01-2018 08-23-2022 Episodic Unclassified (1 source) CONTACT W/AND (SUSP) EXPOS COVID-19; Translations: [CONTACT W/AND (SUSP) EXPOS COVID-19] Onset: 02-24-2021 Results Test Name Value Interpretation Reference Range Facility Ambulatory Visit Summaryon 0 05-09-2024 Ambulatory Visit Summary Ambulatory Visit Summary BINA SEGAL :1970 Visit Date:05/09/2024 Ambulatory Visit Instructions Your Diagnosis Hyperplastic polyp of ascending colon, Hyperplastic polyp of sigmoid colon Abdominal pain, left lower quadrant Your Care Team Attending Physician - DIOR PAIGE, Apolinar Thrasher Primary Care Physician - Luzma PAIGE, Aziza Ramirez This Is Your Medications List Contact prescribing physician if questions or concerns citalopram (CeleXA 20 mg Tab) divalproex sodium (divalproex sodium 500 mg Oral EC Tab) linaclotide (Linzess 290 mcg oral capsule) magnesium oxide (magnesium oxide 400 mg Tab) ondansetron (Zofran 4 mg Tab) phentermine (phentermine 37.5 mg Tab) sumatriptan (SUMAtriptan 100 mg Tab) Procedures Performed Colonoscopy (04/23/2024), Abdominal hysterectomy, Cervical discectomy, Colonoscopy, Tonsillectomy. Medications What How Much When Why Instructions Unchanged citalopram (CeleXA 20 mg Tab) 1 Tablets By Mouth Every day Contact prescribing physician if questions or concerns Unchanged divalproex sodium (divalproex sodium 500 mg Oral EC Tab) 1 Tablets By Mouth Every day Contact prescribing physician if questions or concerns Unchanged linaclotide (Linzess 290 mcg oral capsule) 1 Capsules By Mouth Every day Contact prescribing physician if questions or concerns Unchanged magnesium oxide (magnesium oxide 400 mg Tab) 2 Tablets By Mouth Every day Contact prescribing physician if questions or concerns Unchanged ondansetron (Zofran 4 mg Tab) 1 Tablets By Mouth Every 6 hours as needed for Nausea Abdominal pain, left lower quadrant Change in bowel habits Irritable bowel syndrome with constipation take as needed day of bowel prep Contact prescribing physician if questions or concerns Unchanged phentermine (phentermine 37.5 mg Tab) 1 Tablets By Mouth Every day as needed for Other (see comment) Contact prescribing physician if questions or concerns Unchanged sumatriptan (SUMAtriptan 100 mg Tab) 1 Tablets By Mouth Once as needed for Migraine headache Contact prescribing physician if questions or concerns Allergies No Known Allergies No Known Medication Allergies Problems Ongoing - Any problem that you are currently receiving treatment for. Abdominal pain, left lower quadrant Anxiety BMI 28.0-28.9,adult Change in bowel habits Chronic fatigue syndrome Cyst of kidney Hyperplastic polyp of ascending colon Hyperplastic polyp of sigmoid colon Irritable bowel syndrome with constipation Migraine Overweight Smoker Urethral stenosis Patient Survey You may receive a survey via text or e-mail asking about your office visit. Please share your experience with us by completing your survey. We appreciate your feedback and thank you for choosing us for your care. Dangelo Moralez [facility] General Surgery Office/Clini c Noteon 05-09-2024 General Surgery Office/Clinic Note General Surgery Office/Clinic Note Chief Complaint post operative follow up HPI Staff 16 day post operative follow up post colonoscopy with ascending and sigmoid polypectomies. History of Present Illness s/p colonoscopy due to constipation and LLQ abd pain; small polyps removed from ascending and sigmoid colon, hyperplastic, some redundancy of colon; Review of Systems PHQ Score Initial Depression Screen Score: 0 SCORE ROS - Provider Constitutional: no fever, no sweats, no weight loss. Eyes: no glasses, no blurred vision, no visual loss. ENMT: no dentures, no hoarseness, no swallowing difficulties, no hearing loss, no ear infection(s), no nose bleeds. Cardiovascular: normal blood pressure, no chest pain, regular heartbeat, no heart murmur. Respiratory: no shortness of breath, no cough, no asthma, no wheezing. Gastrointestinal: no nausea, no vomiting, no diarrhea, no constipation, no blood in stool, no change in bowel habits, no abdominal pain, no hepatitis. Genitourinary: no kidney stones, no urine infection, no dysuria. Musculoskeletal: no pain, no weakness. Skin: no changing moles, no rash, no skin lumps. Neurologic: no seizures, no epilepsy, no headache. Psychiatric: no emotional or psychiatric problem. Heme/Lymph: no bleeding problems, no anemia, no blood clots, no transfusions. Allergy/Immunologic: no swollen lymph nodes/glands, no IV drug abuse. Other: Additional ROS info: Except as noted in the above Review of Systems and in the History of Present Illness, all other systems have been reviewed and are negative or noncontributory. Assessment/Plan 1. Hyperplastic polyp of ascending colon, (K63.5: Polyp of colon)Hyperplastic polyp of sigmoid colon recommend surveillance colonoscopy in 5 years; high fiber diet and daily fiber supplement; call with problems/questions. 3. Abdominal pain, left lower quadrant (R10.32: Left lower quadrant pain) some redundancy of colon with spasm; also likely adhesions from hysterectomy; recommend supportive care, high fiber diet and daily fiber supplement; call with problems/questions. Follow-up No qualifying data available Problem List/Past Medical History Ongoing Abdominal pain, left lower quadrant Anxiety BMI 28.0-28.9,adult Change in bowel habits Chronic fatigue syndrome Cyst of kidney Hyperplastic polyp of ascending colon Hyperplastic polyp of sigmoid colon Irritable bowel syndrome with constipation Migraine Overweight Smoker Urethral stenosis Historical No qualifying data Procedure/Surgical History Colonoscopy (04/23/2024), Abdominal hysterectomy, Cervical discectomy, Colonoscopy, Tonsillectomy. Medications CeleXA 20 mg Tab, 20 mg= 1 tab(s), Oral, Daily divalproex sodium 500 mg Oral EC Tab, 500 mg= 1 tab(s), Oral, Daily Linzess 290 mcg oral capsule, 290 mcg= 1 cap(s), Oral, Daily magnesium oxide 400 mg Tab, 800 mg= 2 tab(s), Oral, Daily phentermine 37.5 mg Tab, 37.5 mg= 1 tab(s), Oral, Daily, PRN SUMAtriptan 100 mg Tab, 100 mg= 1 tab(s), Oral, Once, PRN Zofran 4 mg Tab, 4 mg= 1 tab(s), Oral, q6hr, PRN, Not taking Allergies No Known Allergies No Known Medication Allergies Social History Alcohol - Denies Alcohol Use, 09/07/2022 Never., 03/27/2024 Substance Abuse - Denies Substance Abuse, 09/07/2022 Never., 03/27/2024 Tobacco 5-9 cigarettes (between 1/4 to 1/2 pack)/day in last 30 days Tobacco Use:. Never Smokeless Tobacco Use:. Cigarettes, 0.5 per day. Started age 13.0 Years. Yes, 05/09/2024 Family History Diabetes mellitus type 2: Brother. Heart disease: Father. Hyperlipidemia: Father, Sister and Brother. Hypertension: Mother and Sister. Hyperthyroidism: Father. Ovarian cancer: Mother. Primary malignant neoplasm of colon: Grandparent. Immunizations Vaccine Date Status Comments SARS-CoV-2 (COVID-19) mRNAMUL.[id number] 01/11/2022 Recorded SARS-CoV-2 (COVID-19) mRNA-1273 vaccine 01/08/2021 Recorded SARS-CoV-2 (COVID-19) mRNA-1273 vaccine 05/30/2020 Recorded 2022-08-23: 50 SARS-CoV-2 (COVID-19) mRNA-1273 vaccine 05/02/2020 Recorded Normal [facility] Comment on above: Result Comment: Elec tronically Signed By: DIOR PAIGE, Apolinar Torres.jose alberto\Date and Time Signed: 05/09/24 16:14 EDT Reminderson 05-09-2024 Reminders Reminders From: Regina Craig LPN To: N - Clinical; Sent: 05/09/2024 16:07:50 EDT Show up: 03/26/2029 07:00:00 EST Subject: colonoscopy recall Due Date/Time: 04/23/2029 07:00:00 EST Reminder/Recall Patient due for surveillance colonoscopy 04/23/2029 due to hyperplastic ascending polyp. Normal [facility] Reminders Reminders From: Regina Craig LPN To: N - Clinical; Sent: 05/02/2024 11:28:09 EDT Show up: 03/26/2034 07:00:00 EST Subject: colonoscopy recall Due Date/Time: 04/23/2034 07:00:00 EST Reminder/Recall Patient due for screening colonoscopy 04/23/2034. Normal [facility] Comment on above: Other Comment: error - incorrect recall Surgical Pathology Reporton 04-25-2024 Surgical Pathology Report [facility] [address] [place] [address]- Surgical Pathology Report Collected Date/Time: 04/23/2024 07:59 EST Pathologist: Emmanuel PAIGE PhD, Hallie Bailye Received Date/Time: 04/23/2024 10:18 EST DIOR PAIGE, Apolinar RADER MD, Apolinar Pittman Surgical Pathology Report - 04/25/2024 11:31 EST - Auth (Verified) Final Diagnosis A: POLYP, ASCENDING COLON, POLYPECTOMY: - HYPERPLASTIC POLYP. B: POLYP, SIGMOID COLON, POLYPECTOMY: - HYPERPLASTIC POLYP. (Electronic Signature) Hallie Benitez MD PhD 04/25/2024 11:31 Clinical Information Change in bowel habits Pre-Op Diagnosis: Change in bowel habits Procedure: Colonoscopy Post-Op Diagnosis: Colon polyps Specimen(s) Received A.Ascending colon polyp B.Sigmoid colon polyp Gross Description A: Received in formalin labeled with patient name, number, and ascending colon polyp are multiple fragments of tucker tissue ranging from less than 0.1 cm up to 0.3 cm in greatest dimension measuring in aggregate 0.9 x 0.9 x 0.1 cm. Specimen is entirely submitted in one cassette. B: Received in formalin labeled with patient name, number, and sigmoid colon polyp is a single fragment of tucker tissue measuring 0.1 x 0.1 x 0.1 cm. Multiple tucker debridement-like materials measuring up to less than 0.1 cm are present. The specimen measures in aggregate 0.2 x 0.2 x 0.1 cm and is entirely submitted in one cassette. (DC) DC:MCA Microscopic Description Microscopic examination performed unless gross only specified. This report was transcribed using voice recognition technology and might contain unintended computerized gas controller errors. Normal [facility] Comment on above: Performed By: #### [id number] #### [facility] [address] [place] [address] Main OR Intraoperative Recor don 04-24-2024 Main OR Intraoperative Record Main OR Intraoperative Record IntraOp Document Type FT Summary Primary Physician: Apolinar RADER MD Finalized Date/Time: 04/24/24 12:03:15 Pt. Name: BINA SEGAL/Sex: 1970 Female Med Rec #: [id number] Physician: Apolinar RADER MD Financial #: [id number] Pt. Type: O Room/Bed: / Admit/Disch: 04/23/24 06:59:02 - 04/23/24 23:59:59 Institution: Case Times FT Entry 1 Patient Times In Room 04/23/24 07:46:00 Out Room 04/23/24 08:14:00 Procedure Times Start 04/23/24 07:50:00 Stop 04/23/24 08:12:00 Anesthesia Times Start 04/23/24 07:46:00 Stop 04/23/24 08:14:00 Time at [facility] 04/23/24 07:57:00 Last Modified By: Miguelangel AKERS, Kendy Wu 04/23/24 08:13:00 General Comments: 04/24/24 Chart opened to review and send charges [facility] CSFA Case Attendance FT Entry 1 Entry 2 Entry 3 Case Attendee Carole COLLINS, James RADER MD, Apolinar Means RN, Kendy Wu Role Performed Anesthesiologist Surgeon - Primary Drainage Design Coordinator - Primary Import Dispatcher Time In 04/23/24 07:46:00 04/23/24 07:46:00 04/23/24 07:46:00 Time Out 04/23/24 08:14:00 04/23/24 08:14:00 04/23/24 08:14:00 Procedure COLONOSCOPY(.) COLONOSCOPY(.) COLONOSCOPY(.) Comments Dr. Rangel supervising case Last Modified By: Miguelangel RN, Kendy Means RN, Kendy Means RN, Kendy Wu 04/23/24 08:13:01 F 04/23/24 08:13:01 F 04/23/24 08:13:01 Entry 4 Case Attendee Jigna Wright Role Performed Scrub - Primary Time In 04/23/24 07:46:00 Time Out 04/23/24 08:14:00 Procedure COLONOSCOPY(.) Comments Last Modified By: Miguelangel AKERS, Kendy Wu 04/23/24 08:13:01 Perioperative Protocols FT Pre-Care Text: Implements protective measures prior to operative or invasive procedure, confirms identity before the operative or invasive procedure, verifies operative procedure, surgical site, and laterality Entry 1 Procedure(s) COLONOSCOPY(.) Patient Identity Birthday, ID Band Verified (select at Check, Patient least 2): Participation Consents / H and P Anesthesia Consent, Operative Site N/A Verified H&P, Surgery/Procedure Marking Verified Consent Surgical Site No Laterality Verified n/a Verified Procedure Verified Yes Correct Patient Yes Position Verified Availability Equipment, Medication Prep Dry n/a Verified (If Applicable) PreOp Antibiotic No Time Out DIOR PAIGE, Apolinar Thrasher, Given Participants Carole COLLINS, Miguelangel Devi RN, Kyle Gorman Micala E Time Out Complete 04/23/24 07:47:00 Outcomes Met? Yes Last Modified By: Kendy Means RN 04/23/24 07:50:55 Post-Care Text: The patient is free from signs and symptoms of injury caused by extraneous objects Allergy Information FT Pre-Care Text: Verifies allergies Entry 1 Allergies Reviewed? Yes Allergies Reviewed Self/Patient With Outcomes Met? Yes Last Modified By: Kendy Means RN 04/23/24 07:51:00 Post-Care Text: The patient received appropriate medication(s) safely administered during the perioperative period Surgical Procedures FT Entry 1 Procedure Description Procedure COLONOSCOPY Modifiers . Surgeon Description Colonoscopy with ascending colon polypectomy, sigmoid colon polypectomy. Primary Procedure Yes Primary Surgeon DIOR PAIGE, Apolinar Thrasher Start 04/23/24 07:50:00 Stop 04/23/24 08:12:00 Anesthesia Type General Surgical Service General Wound Class 2 - Clean-Contaminated Last Modified By: Kendy Means RN 04/23/24 08:12:30 General Case Data FT Pre-Care Text: Classifies surgical wound, implements aseptic technique, initiates traffic control Entry 1 Case Information OR ENDO 2 FT Case Level Level 2 Wound Class 2 - Clean-Contaminated Specialty General ASA Class 2 Preop Diagnosis Change in bowel habits Postop Same As Preop No Postop Diagnosis Ascending colon polyp, Outcomes Met? Yes sigmoid colon polyp Last Modified By: Kendy Means RN 04/23/24 08:08:12 Post-Care Text: The patient is free from signs and symptoms of infection Skin Assessment (Pre Procedure) FT Pre-Care Text: Implements protective measures to prevent skin/ tissue injury due to thermal or mechanical sources Evaluates for signs and symptoms of physical injury to skin and tissue Entry 1 Skin Integrity Intact, [place], Warm, & Skin Abnormality No Dry Outcomes Met? Yes Last Modified By: Kendy Means RN 04/23/24 07:51:29 Post-Care Text: The patient is free from signs and symptoms of injury caused by extraneous objects Patient Positioning FT Pre-Care Text: Identifies physical alterations that require additional precautions for procedure-specific positioning, verifies presence of prosthetics or corrective devices, positions the patient, evaluates the patient for signs and symptoms of injury as a result of positioning Entry 1 Procedure COLONOSCOPY(.) Body Position Lateral, right side up Feet Uncrossed? Yes Left Arm Position Resting (more content not included)... Normal [facility] Discharge Instructionson Discharge Instructions Discharge Instructions BINA SEGAL :1970 Visit Date:04/23/2024 Inpatient Discharge Instructions Your Care Team Admitting Physician - Apolinar RADER MD Referring Physician - Apolinar RADER MD Reason for Your Visit CHANGE IN BOWEL HABITS Your Diagnosis Colon polyps Tests Performed Pathology Tissue Exam -- Results Pending -- Please visit your patient portal for your results or contact your primary care physician. This Is Your Medications List citalopram (CeleXA 20 mg Tab) divalproex sodium (divalproex sodium 500 mg Oral EC Tab) linaclotide (Linzess 290 mcg oral capsule) magnesium oxide (magnesium oxide 400 mg Tab) ondansetron (Zofran 4 mg Tab) phentermine (phentermine 37.5 mg Tab) sumatriptan (SUMAtriptan 100 mg Tab) Procedure History Colonoscopic polypectomy (04/23/2024), Abdominal hysterectomy, Cervical discectomy, Colonoscopy, Tonsillectomy. Discharge Vitals Temperature (Temporal Artery) 36.0 ???C Heart Rate (Monitored) 70 Respiratory Rate 16 Blood Pressure 96/52 Height 160 cm Weight 73.6 kg BMI 28.75 What to do next Instructions From Your Doctor Event Name Event Result Discharge Activity Arrange for a responsible adult supervision for 24 hours Discharge Restrictions No driving for 24 hrs, Do not operate machinery or tools, Do not make important decisions for 24 hours, Do not drink alcoholic beverages for 24 hours Discharge Diet(s) Regular Call Your Doctor For Persistent or heavy bleeding, Temperature above 101.5 degrees, Redness, swelling, or pus at operative site, Severe pain at the operative site, Persistent vomiting Discharge Instructions Discharge Instructions New Follow Up Appointments after Discharge Follow Up with Apolinar RADER When: Within 1 to 2 weeks Where: [address], [address] [place] [phone] Business (1) Medications What How Much When Why Instructions Next Dose Unchanged citalopram (CeleXA 20 mg Tab) 1 Tablets By Mouth Every day Unchanged divalproex sodium (divalproex sodium 500 mg Oral EC Tab) 1 Tablets By Mouth Every day Unchanged linaclotide (Linzess 290 mcg oral capsule) 1 Capsules By Mouth Every day Unchanged magnesium oxide (magnesium oxide 400 mg Tab) 2 Tablets By Mouth Every day Unchanged ondansetron (Zofran 4 mg Tab) 1 Tablets By Mouth Every 6 hours as needed for Nausea Abdominal pain, left lower quadrant Change in bowel habits Irritable bowel syndrome with constipation take as needed day of bowel prep Unchanged phentermine (phentermine 37.5 mg Tab) 1 Tablets By Mouth Every day as needed for Other (see comment) Unchanged sumatriptan (SUMAtriptan 100 mg Tab) 1 Tablets By Mouth Once as needed for Migraine headache Test Results No qualifying data available. Allergies No Known Allergies No Known Medication Allergies Problems Ongoing - Any problem that you are currently receiving treatment for. Abdominal pain, left lower quadrant Anxiety BMI 28.0-28.9,adult Change in bowel habits Chronic fatigue syndrome Cyst of kidney Irritable bowel syndrome with constipation Migraine Overweight Smoker Urethral stenosis Education Materials Colon Polyps Polyps are tissue growths inside the body. Polyps can grow in many places, including the large intestine (colon). A polyp may be a round bump or a mushroom-shaped growth. You could have one polyp or several. Most colon polyps are noncancerous (benign). However, some colon polyps can become cancerous over time. Finding and removing the polyps early can help prevent this. What are the causes? The exact cause of colon polyps is not known. What increases the risk? You are more likely to develop this condition if you: ??? Have a family history of colon cancer or colon polyps. ??? Are older than 50 or older than 45 if you are . ??? Have inflammatory bowel disease, such as ulcerative colitis or Crohn's disease. ??? Have certain hereditary conditions, such as: ? Familial adenomatous polyposis. ? Mcdermott syndrome. ? Turcot syndrome. ? Peutz???Jeghers syndrome. ??? Are overweight. ??? Smoke cigarettes. ??? Do not get enough exercise. ??? Drink too much alcohol. ??? Eat a diet that is high in fat and red meat and low in fiber. ??? Had childhood cancer that was treated with abdominal radiation. What are the signs or symptoms? Most polyps do not cause symptoms. If you have symptoms, they may include: ??? Blood coming from your rectum when having a bowel movement. ??? Blood in your stool. The stool may look dark red or black. ??? Abdominal pain. ??? A change in bowel habits, such as constipation or diarrhea. How is this diagnosed? This condition is diagnosed with a colonoscopy. This is a procedure in which a lighted, flexible scope is inserted into the anus and then passed into th (more content not included)... Normal [facility] Comment on above: Result Comment: Elec tronically Signed By: Essence AKERS, Mell\.br\Date and Time Signed: 04/23/24 08:22 EST Inpatient Patient Summaryon 04-23-2024 Inpatient Patient Summary Inpatient Patient Summary [place] [id number] [facility] Clinical Discharge Instructions PERSON INFORMATION Name: BINA SEGAL PHYSICIANS Admitting Physician: Apolinar RADER MD Attending Physician: Apolinar RADER MD PCP: Luzma PAIGE, Aziza Ramirez Discharge Diagnosis: Colon polyps Comment: PATIENT EDUCATION INFORMATION Instructions: Medication Leaflets: Follow up: With: Address: When: Apolinar RADER [address] [place] [address], [facility] [address] [phone] [facility] () Within 1 to 2 weeks MEDICATION LIST Medications to Continue with No Changes Other Medications citalopram (CeleXA 20 mg Tab) 1 Tablets By Mouth every day. divalproex sodium (divalproex sodium 500 mg Oral EC Tab) 1 Tablets By Mouth every day. linaclotide (Linzess 290 mcg oral capsule) 1 Capsules By Mouth every day., Responsible Provider: AZIZA SEGAL magnesium oxide (magnesium oxide 400 mg Tab) 2 Tablets By Mouth every day. ondansetron (Zofran 4 mg Tab) 1 Tablets By Mouth every 6 hours as needed Nausea. take as needed day of bowel prep. Refills: 0. phentermine (phentermine 37.5 mg Tab) 1 Tablets By Mouth every day as needed Other (see comment)., appetite suppress sumatriptan (SUMAtriptan 100 mg Tab) 1 Tablets By Mouth Once as needed Migraine headache. Comment: Normal [facility] Main OR PACU II Recordon Main OR PACU II Record Main OR PACU II Record PACU Phase II Document Type FT Summary Primary Physician: Apolinar RADER MD Finalized Date/Time: 04/23/24 08:52:44 Pt. Name: BINA SEGAL /Sex: 1970 Female Med Rec #: [id number] Physician: Apolinar RADER MD Financial #: [id number] Pt. Type: O Room/Bed: / Admit/Disch: 04/23/24 06:59:02 - Institution: Case Times PACU II FT Pre-Care Text: Identifies barriers to communication and implements measures to provide psychological support and determines knowledge level Develops individualized plan of care, and ensures continuity of care Maintains patient's dignity and privacy, and maintains patient confidentiality Identifies and reports philosophical, cultural, and spiritual beliefs and values Identifies individual values and wishes concerning care administers prescribed antibiotic therapy and immunizing agents as ordered, Evaluates postoperative tissue perfusion Implements thermoregulation measures, and monitors body temperature Evaluates postoperative respiratory status Evaluates postoperative cardiac status Evaluates postoperative neurological status Assesses pain control, collaborated in initiating patient-controlled analgesia and implements alternative methods of pain control Verifies allergies, administers prescribed medications and solutions, evaluates response to medications Entry 1 In PACU II 04/23/24 08:15:00 Discharge from PACU 04/23/24 08:45:00 II Outcomes Met? Yes Last Modified By: Mell Lowry RN 04/23/24 08:52:37 Post-Care Text: The patient demonstrates knowledge of the expected response to the operative or invasive procedure The patient's care is consistent with the individualized perioperative plan of care The patient's right to privacy is maintained The patient's value system, lifestyle, ethnicity, and culture are considered, respected, and incorporated into the perioperative plan of care The patient participates in decisions affecting his or her perioperative plan of care. The patient is free from signs and symptoms of infection The patient has wound/tissue perfusion consistent with or improved from baseline levels established preoperatively The patient is at or returning to normothermia at the conclusion of the immediate postoperative period The patient's respiratory function is consistent with or improved from baseline levels established preoperatively The patient's cardiovascular status is consistent with or improved from baseline levels established preoperatively The patient's neurological status is consistent with or improved from baseline levels established preoperatively The patient demonstrates and/or reports adequate pain control throughout the perioperative period The patient received appropriate medication(s), safely administered during the perioperative period Finalized By: Mell Lowry RN Document Signatures Signed By: Mell Lowry RN 04/23/24 08:52 Normal [facility] Main OR Preoperative Recordo n 04-23-2024 Main OR Preoperative Record Main OR Preoperative Record Holding Area Document Type FT Summary Primary Physician: Apolinar RADER MD Finalized Date/Time: 04/23/24 07:12:49 Pt. Name: BINA SEGAL Leo Mora/Sex: 1970 Female Med Rec #: [id number] Physician: Apolinar RADER MD Financial #: [id number] Pt. Type: O Room/Bed: / Admit/Disch: 04/23/24 06:59:02 - Institution: Case Times Holding FT Pre-Care Text: Verifies consent for planned procedure, identifies individual values and wishes concerning care, includes family members in perioperative teaching Secures patient's records' belongings, and valuables, maintains patient's dignity and privacy, and maintains patient confidentiality Entry 1 In Holding 04/23/24 07:05:00 Outcomes Met? Yes Last Modified By: Kendy Means RN 04/23/24 07:11:12 Post-Care Text: The patient participates in decisions affecting his or her perioperative plan of care The patient's right to privacy is maintained Surgery Checklist FT Entry 1 Patient Birthday, ID Band Procedure History and Physical, Identification: Check, Patient Verification: Surgical Consent, With Participation Patient NPO after Midnight: Yes Date/Time: 04/23/24 05:30:00 Personal Items: Jewelry Personal Items glasses, earrings, Comment: clothes, shoes, ring Limitations: n/a Complaints of Pain: Yes Pain Comment: 09/30 headache Operative Site n/a Marking: Marked By: n/a Availability Equipment Verified: Does Patient Smoke Yes If Yes to Smoking. 7 cigarettes per day Cigars or Cigarettes. How much per day? Patient states Yes Comment - Adult - Cristino postop adult Supervision supervision available Case Cancelled in No Holding Area see comments below for reason Last Modified By: Kendy Means RN 04/23/24 07:12:46 General Comments: Pt states she was finished with colon prep by 0400, states stool is clear liquid yellow, has been NPO since other than a small sip of water at 0530. /MDRN Finalized By: Kendy Means RN Document Signatures Signed By: Kendy Means RN 04/23/24 07:12 Normal [facility] Outpatient Surgery Discharge Instructionon 04-23-2024 Outpatient Surgery Discharge Instruction Outpatient Surgery Discharge Instruction [place] [id number] Patient Discharge Instructions PERSON INFORMATION Name: BINA SEGAL Leo Date of : 1970 Current Date: 04/23/2024 08:17:04 PHYSICIANS Admitting Physician: Apolinar RADER MD Discharge Diagnosis: Colon polyps BINA SEGAL has been given the following list of follow-up instructions, prescriptions, and patient education materials: PATIENT FOLLOW-UP INFORMATION Diet: Regular Discharge Activity: Arrange for a responsible adult supervision for 24 hours Discharge Restrictions: No driving for 24 hrs, Do not operate machinery or tools, Do not make important decisions for 24 hours, Do not drink alcoholic beverages for 24 hours Call Your Doctor For: Persistent or heavy bleeding, Temperature above 101.5 degrees, Redness, swelling, or pus at operative site, Severe pain at the operative site, Persistent vomiting IF UNABLE TO CONTACT YOUR PHYSICIAN AND YOU FEEL IT IS AN EMERGENCY, GO TO THE NEAREST EMERGENCY ROOM OR CALL 911 ILUZMA SANDRA L, have received the attached patient education materials/instructions and have verbalized understanding: May we do a follow up call? Yes No I was present when discharge instructions were given Patient Signature Date Clinican/Nurse Signature _ Date Follow up: With: Address: When: [address]olinar Steve, [address], [facility] [address] [place] [phone] [facility] (1) Within 1 to 2 weeks Pharmacy Information: You may receive a survey from [employer] asking you to rate your care experience. Your feedback is important and will help us understand what we do well and how we can improve the quality of care we provide to you, your loved ones and our community. It???s an honor to serve you. Thank you for choosing [facility] HERE ARE THE MEDICATION CHANGES THAT OCCURRED DURING YOUR HOSPITAL STAY Medications to Continue with No Changes Other Medications citalopram (CeleXA 20 mg Tab) 1 Tablets By Mouth every day. divalproex sodium (divalproex sodium 500 mg Oral EC Tab) 1 Tablets By Mouth every day. linaclotide (Linzess 290 mcg oral capsule) 1 Capsules By Mouth every day., Responsible Provider: AZIZA SEGAL magnesium oxide (magnesium oxide 400 mg Tab) 2 Tablets By Mouth every day. ondansetron (Zofran 4 mg Tab) 1 Tablets By Mouth every 6 hours as needed Nausea. take as needed day of bowel prep. Refills: 0. phentermine (phentermine 37.5 mg Tab) 1 Tablets By Mouth every day as needed Other (see comment)., appetite suppress sumatriptan (SUMAtriptan 100 mg Tab) 1 Tablets By Mouth Once as needed Migraine headache. PATIENT EDUCATION INFORMATION Instructions: Medication Leaflets: Normal [facility] Ambulatory Visit Summaryon 0 03-27-2024 Ambulatory Visit Summary Ambulatory Visit Summary BINA SEGAL :1970 Visit Date:03/27/2024 Ambulatory Visit Instructions Your Diagnosis Abdominal pain, left lower quadrant Change in bowel habits Irritable bowel syndrome with constipation Your Care Team Attending Physician - DIOR PAIGE, Apolinar Thrasher Primary Care Physician - Luzma PAIGE, Aziza Ramirez This Is Your Medications List divalproex sodium (divalproex sodium 500 mg Oral EC Tab) sumatriptan (SUMAtriptan 100 mg Tab) Contact prescribing physician if questions or concerns citalopram (CeleXA 20 mg Tab) linaclotide (Linzess 290 mcg oral capsule) phentermine (phentermine 37.5 mg Tab) Procedures Performed Abdominal hysterectomy, Cervical discectomy, Colonoscopy, Tonsillectomy. Discharge Vitals Heart Rate (Peripheral) 72 Respiratory Rate 16 Blood Pressure 116/68 Height 160 cm Height 63 in Weight 73.6 kg Weight 162.26 lb BMI 28.75 Medications What How Much When Instructions Unchanged divalproex sodium (divalproex sodium 500 mg Oral EC Tab) 1 Tablets By Mouth Every day Unchanged sumatriptan (SUMAtriptan 100 mg Tab) 1 Tablets By Mouth Once Unchanged citalopram (CeleXA 20 mg Tab) 1 Tablets By Mouth Every day Contact prescribing physician if questions or concerns Unchanged linaclotide (Linzess 290 mcg oral capsule) 90 EA, 0 Refill(s), TAKE 1 CAPSULE (290 MCG) BY MOUTH IN THE MORNING. TAKE BEFORE MEALS. DO NOT CRUSH OR CHEW.. Contact prescribing physician if questions or concerns Unchanged phentermine (phentermine 37.5 mg Tab) 30 EA, 0 Refill(s), TAKE 1 TABLET (37.5 MG) BY MOUTH IN THE MORNING. TAKE BEFORE MEALS. Contact prescribing physician if questions or concerns Allergies No Known Allergies No Known Medication Allergies Problems Ongoing - Any problem that you are currently receiving treatment for. Abdominal pain, left lower quadrant Anxiety BMI 31.0-31.9,adult Change in bowel habits Chronic fatigue syndrome Cyst of kidney Irritable bowel syndrome with constipation Migraine Migraines Obesity Smoker Urethral stenosis Patient Survey You may receive a survey via text or e-mail asking about your office visit. Please share your experience with us by completing your survey. We appreciate your feedback and thank you for choosing us for your care. Normal [facility] BI MAMMOGRAM SCREENING TOMHOWARD MILLERon 03-15-2024 BI MAMMOGRAM SCREENING TOMOSYNTHESIS BILATERAL This is a summary report. The complete report is available in the patient's medical record. If you cannot access the medical record, please contact the sending organization for a detailed fax or copy. Examination: BI MAMMOGRAM SCREENING TOMOSYNTHESIS BILATERAL Clinical [...] axillary lymph node suggested on the right. IMPRESSION: Impression: Ill-defined asymmetric density suggested in the [...] ultrasound ELECTRONICALLY SIGNED BY: Jose Busch M.D. Abnormal Not Available Reminderson 03-07-2024 Reminders Reminders From: Regina Craig LPN To: GSN - Clinical; Sent: 11/10/2023 12:01:55 EDT Show up: 03/06/2024 07:00:00 EST Subject: appt reminder Due Date/Time: 03/07/2024 07:00:00 EST Reminder/Recall Call patient mid February to schedule consultation for screening colonoscopy. future appointmentFuture Appointments [facility] Vikki Appt. Date: 03/27/2024 3:20 PM Scheduled Provider: Dior PAIGE, Apolinar Steve, [address], [address] [facility] [place] [address] [place], [address] Phone: -- Fax: -- Dangelo Moralez [facility] No Panel Informationon 03-24 Type of biopsy: tangential Informed consent: discussed and consent obtained Informed consent comment: The risks and benefits of the biopsy were discussed. Risks include but are not limited to bleeding, infection, scarring, pain, and nerve damage. An opportunity to ask questions prior to the procedure was permitted and all questions were answered. Patient was prepped and draped in usual sterile fashion: area cleansed with alcohol. Anesthesia: the lesion was anesthetized in a standard fashion Anesthetic: 1% lidocaine w/ epinephrine 1-100,000 buffered w/ 8.4% NaHCO3 Instrument used: DermaBlade Hemostasis achieved with: electrodesiccation Outcome: patient tolerated procedure well Outcome comment: The specimen was placed in a prelabeled formalin container to be sent for pathology Post-procedure details: sterile dressing applied and wound care instructions given Post-procedure details comment: Emphasized need to contact clinic for any signs of infection, uncontrollable bleeding, or complications. Dressing type: bandage Additional details: Photo taken yes Amount of lidocaine used: 1.0 cc [facility] - CULTURE,URINE,ROUTINEon 04-01-2021 CULTURE, URINE, ROUTINE SEE NOTE Abnormal [facility] Mentally Impaired Teacher Comment on above: Order Comment: [facility] Testing performed at: Q, [facility], [address] [place] [address], [address] [place] [address], [id number], Guard Immigration: Shahram Bravo MD [facility] Collection Date/Time: [id number] [facility] Results Received Date/Time: [id number] [facility] Reported Date/Time: [id number] Result Comment: CULT URE, URINE, ROUTINE Micro Number: [id number] Test Status: Final Specimen Source: Urine Specimen Quality: Adequate Result: Greater than 100,000 CFU/mL of Escherichia coli E.coli INT VERO AMOX/CLAVULANATE S 8 AMPICILLIN R >=32 AMP/SULBACTAM I 16 CEFAZOLIN NR <=4 2 CEFEPIME S <=1 CEFTRIAXONE S <=1 CIPROFLOXACIN R >=4 ERTAPENEM S <=0.5 GENTAMICIN S <=1 IMIPENEM S <=0.25 LEVOFLOXACIN R >=8 NITROFURANTOIN S <=16 PIP/TAZOBACTAM S <=4 TOBRAMYCIN S <=1 TRIMETHOPRIM/SULFA S <=20 S=Susceptible I=Intermediate R=Resistant * = Not Tested NR = Not Reported NN = See Therapy Comments THERAPY COMMENTS Note 1: For infections other than uncomplicated UTI caused by E. coli, K. pneumoniae or P. mirabilis: Cefazolin is resistant if VERO > or = 8 mcg/mL. (Distinguishing susceptible versus intermediate for isolates with VERO < or = 4 mcg/mL requires additional testing.) Note 2: For uncomplicated UTI caused by E. coli, K. pneumoniae or P. mirabilis: Cefazolin is susceptible if VERO <32 mcg/mL and predicts susceptible to the oral agents cefaclor, cefdinir, cefpodoxime, cefprozil, cefuroxime, cephalexin and loracarbef. Performed By: #### [id number] #### [facility] Default [address] [place] [address] [facility]on SARS-CoV-2 (COVID-19) RNA ADRIAN+probe Ql (Unsp spec) Not detected Normal NOT DETECTED [facility] [place] [facility] Comment on above: Result Comment: This test is not yet approved or cleared by the [place] FDA. When there are no FDA-approved or cleared tests available, and other criteria are met, FDA can make tests available under an emergency access mechanism called an Emergency Use Authorization (EUA). The EUA for this test is supported by the [place] of Health and Human Service's (HHS's) declaration that circumstances exist to justify the emergency use of in vitro diagnostics for the detection and/or diagnosis of the virus that causes COVID-19. This EUA will remain in effect (meaning this test can be used) for the duration of the COVID-19 declaration justifying emergency of IVDs, unless it is terminated or revoked by FDA (after which the test may no longer be used). When diagnostic testing is negative, the possibility of a false negative should be considered in the context of a patient's recent exposures and the presence of clinical signs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 Known Allergies Review of Systems Constitutional: Negative for chills, fatigue and fever. HENT: Negative for congestion. Respiratory: Negative for cough and shortness of breath. Cardiovascular: Negative for chest pain and leg swelling. Gastrointestinal: Negative for constipation and diarrhea. Genitourinary: Negative for difficulty urinating. Skin: Negative for rash. Neurological: Negative for dizziness. Medical, Surgical, Family, and Social History reviewed. OBJECTIVE: Visit Vitals BP 120/72 (BP Location: Right arm, Patient Position: Sitting, BP Cuff Size: Adult) Pulse 87 Temp 98.2 F (Temporal) Ht 5' 3 Wt 160 lb LMP (LMP Unknown) SpO2 98% BMI 28.34 kg/m OB Status Hysterectomy Smoking Status Every Day BSA 1.8 m BP Readings from Last 3 Encounters: 06/28/24 120/72 05/15/24 138/80 03/30/24 114/78 Wt Readings from Last 3 Encounters: 06/28/24 160 lb 05/15/24 158 lb 03/30/24 163 lb Physical Exam Vitals reviewed. HENT: Head: Normocephalic and atraumatic. Mouth/Throat: Mouth: Mucous membranes are moist. Cardiovascular: Rate and Rhythm: Normal rate and regular rhythm. Heart sounds: No murmur heard. Pulmonary: Effort: Pulmonary effort is normal. Breath sounds: Normal breath sounds. Skin: General: Skin is warm and dry. Neurological: General: No focal deficit present. Mental Status: She is alert. Psychiatric: Mood and Affect: Mood normal. Physical Exam Results ASSESSMENT AND PLAN: Assessment & Plan 1. Weight management. - She has gained 4 pounds due to stress eating but is still heading down on average. - Advised to continue her current medication regimen until 09/2024. - Discussed the high likelihood of weight regain after discontinuation of the medication and the potential use of GLP-1 medications like Ozempic. - Encouraged to incorporate regular exercise into her routine as a means of managing stress. 2. Medication management. - Requested a refill for her current medication, which will be provided. - Mentioned receiving a notification from her insurance company about a potential denial of her Linzess prescription, but it was clarified that no changes have been made to her prescription. - Currently on the maximum dose of Linzess. - Recent colonoscopy was performed at the end of 04/2024 or beginning of 05/2024, confirming continued need for Linzess. Follow-up The patient will follow up in 3 months. Assessment/Plan There are no preventive care reminders to display for this patient. documented in this encounter [facility] 04-23-2024 Note Colonoscopy Procedur e Report Patient: BINA SEGAL Age: 53 years Sex: Female : 1970 Associated Diagnoses: None Author: Apolinar RADER MD Pre-Procedure Procedure Date 04/23/2024 08:20:00 . Procedure Type: Colonoscopy with removal of tumor(s), polyp(s), or other lesion(s) by cold snare technique. Procedure provider Apolinar Rader M.D.. Referred by Aziza Segal MD. Current history and physical Documented on chart. Colorectal neoplasm risk assessment Average risk. Informed Consent After discussing the rationale, risks and benefits, and alternatives to this procedure, the patient provided signed consent for the procedure. Pre-procedure diagnosis: Constipation. Unexplained chronic abdominal pain. ASA Classification: Class II. . Monitoring: See anesthesia record. . Procedure The procedure was performed in the hospital. See anesthesia record for sedation given during procedure. Rectal exam was performed and was normal. The patient was positioned starting in the left lateral decubitus position. Endoscope type used was a pediatric-size. The endoscope was lubricated then introduced through the anus. The scope was advanced to the cecum verified by photographing the appendiceal orifice, verified by photographing the ileocecal valve. No difficulties encountered during the procedure. The bowel preparation quality was good and was adequate (see polyps greater than or equal to 6 millimeters). The patient tolerated the procedure well. Findings Multiple polyps ranging from 4 mm to 5 mm in size were noted. The polyp was located in the sigmoid colon and ascending colon: 5 mm flat polyp in ascending colon, removed with cold snaree; 4 mm sessile sigmoid polyp with depressed center, remofed with cold snare.. The polyp(s) is sessile (0-Is). The polyp(s) is characterized as flat. Intervention(s) included polypectomy with cold snare. Intervention was successful. Images Procedure images: anal canal sigmoid colon polyp ascending colon polyp ileocecal valve appendiceal orifice . Post-Procedure Complications: none. Estimated blood loss: 1 milliliters. Specimens: sent to pathology. Devices/ implants: none left in place. Impression and Plan Diagnosis: Colon polyps ([id number] K63.5, Discharge, Medical). Recommendations: Repeat colonoscopy:: In 5 years. Follow-up:: Await biopsy results in 3-5 days. Diet:: Regular diet. Medication resumption:: Continue current medications. Return to activities:: After 24 hours. Education and Follow-up: Counseled: Family. [facility] Comment on above: Other Comment: Chantal fleming Attachment - attachment storage system not supported [id number] Can be viewed in source systemMiAloompa Attachment - attachment storage system not supported [id number] Can be viewed in source systemMiAloompa Attachment - attachment storage system not supported [id number] Can be viewed in source systemMiAloompa Attachment - attachment storage system not supported [id number] Can be viewed in source systemMiAloompa Attachment - attachment storage system not supported [id number] Can be viewed in source system 04-23-2024 Evaluation + Plan note Extrac tori from: Title:ANES Post-operative Note - General Author: Robert Rangel Jr., DO Date:04/23/24 Plan Transfer/Discharge: Transfer/Discharge Discharge when meets criteria ( From PACU to Ambulatory Surgery Unit, and To home ). Extracted from: Title:ANES Pre-operative Note - Endo Author:Robert Phillips Jr., DO Date:04/23/24 Plan [place] [employer]hesi[employer] (ASA) physical status classification: Class II. Anesthetic Preoperative Plan: Anesthesia General, and -TIVA. [facility] 03-03-2025 Hospital Discharge instructions Patient Education 04/23/2024 08:21:49 Colon Polyps (CUSTOM) Colon Polyps Polyps are tissue growths inside the body. Polyps can grow in many places, including the large intestine (colon). A polyp may be a round bump or a mushroom-shaped growth. You could have one polyp or several. Most colon polyps are noncancerous (benign). However, some colon polyps can become cancerous over time. Finding and removing the polyps early can help prevent this. What are the causes? The exact cause of colon polyps is not known. What increases the risk? You are more likely to develop this condition if you: Have a family history of colon cancer or colon polyps. Are older than 50 or older than 45 if you are . Have inflammatory bowel disease, such as ulcerative colitis or Crohn's disease. Have certain hereditary conditions, such as: ?Familial adenomatous polyposis. ?Mcdermott syndrome. ?Turcot syndrome. ?Peutz Jeghers syndrome. Are overweight. Smoke cigarettes. Do not get enough exercise. Drink too much alcohol. Eat a diet that is high in fat and red meat and low in fiber. Had childhood cancer that was treated with abdominal radiation. What are the signs or symptoms? Most polyps do not cause symptoms. If you have symptoms, they may include: Blood coming from your rectum when having a bowel movement. Blood in your stool. The stool may look dark red or black. Abdominal pain. A change in bowel habits, such as constipation or diarrhea. How is this diagnosed? This condition is diagnosed with a colonoscopy. This is a procedure in which a lighted, flexible scope is inserted into the anus and then passed into the colon to examine the area. Polyps are sometimes found when a colonoscopy is done as part of routine cancer screening tests. How is this treated? Treatment for this condition involves removing any polyps that are found. Most polyps can be removed during a colonoscopy. Those polyps will then be tested for cancer. Additional treatment may be needed depending on the results of testing. Follow these instructions at home: Lifestyle Maintain a healthy weight, or lose weight if recommended by your health care provider. Exercise every day or as told by your health care provider. Do not use any products that contain nicotine or tobacco, such as cigarettes and e-cigarettes. If you need help quitting, ask your health care provider. If you drink alcohol, limit how much you have: ?0 1 drink a day for women. ? 0 2 drinks a day for men. Be aware of how much alcohol is in your drink. In the [place] one drink equals one 12 oz bottle of beer (355 mL), one 5 oz glass of wine (148 mL), or one 1 oz shot of hard liquor (44 mL). Eating and drinking Eat foods that are high in fiber, such as fruits, vegetables, and whole grains. Eat foods that are high in calcium and vitamin D, such as milk, cheese, yogurt, eggs, liver, fish, and broccoli. Limit foods that are high in fat, such as fried foods and desserts. Limit the amount of red meat and processed meat you eat, such as hot dogs, sausage, jurado, and lunch meats. General instructions Keep all follow-up visits as told by your health care provider. This is important. ?This includes having regularly scheduled colonoscopies. ?Talk to your health care provider about when you need a colonoscopy. Contact a health care provider if: You have new or worsening bleeding during a bowel movement. You have new or increased blood in your stool. You have a change in bowel habits. You lose weight for no known reason. Summary Polyps are tissue growths inside the body. Polyps can grow in many places, including the colon. Most colon polyps are noncancerous (benign), but some can become cancerous over time. This condition is diagnosed with a colonoscopy. Treatment for this condition involves removing any polyps that are found. Most polyps can be removed during a colonoscopy. This information is not intended to replace advice given to you by your health care provider. Make sure you discuss any questions you have with your health care provider. Document Released: 11/03/2004 Document Revised: 05/25/2018 Document Reviewed: 05/25/2018 [employer] Patient Education 2020 [facility] [facility] [employer]. 04/23/2024 08:21:37 Colonoscopy, Care After Surgery [place] (CUSTOM) Colonoscopy Care After Surgery Please read the instructions outlined below and refer to this sheet in the next few weeks. These discharge instructions provide you with general information on caring for yourself after you leave thespital. Your doctor may also give you specific instructions. While your treatment has been planned according to the most current medical practices available, unavoidable complications occasionally occur. If you have any problems or questions after discharge, please call your doctor. ACTIVITY You may resume your regular activity, but move at a slower pace for the next 24 hours. Take frequent rest periods for the next 24 hours. Walking will help get rid of the air and reduce the bloated feeling in your abdomen (belly). No driving for 24 hours (because of the anesthesia (medicine) used during the test). You may shower. Do not sign any important legal documents or operate any machinery for 24 hours (because of the anesthesia used during the test). NUTRITION Drink plenty of fluids. You may resume your normal diet as instructed by your doctor. Begin with a light meal and progress to your normal diet. Heavy or fried foods are harder to digestand may make you feel nauseated (sick to your stomach). Avoid alcoholic beverages for 24 hours or as instructed. MEDICATIONS You may resume your normal medications unless your doctor tells you otherwise. WHAT YOU CAN EXPECT TODAY Some feelings of bloating in the abdomen. Passage of more gas than usual. Spotting of blood in your stool or on the toilet paper. FOLLOW-UP Your doctor will discuss the results of your test with you. SEEK IMMEDIATE MEDICAL ATTENTION IF: There is more than a spotting of blood in your stool. There is abdominal distention (your abdomen is swollen). There is vomiting. You have a temperature over 101.5 F. There is abdominal pain or discomfort that is severe or gets worse throughout the day. Follow Up Care 03/27/2024 15:56:24 With:Apolinar RADER Address: [address] [place] [address], [facility] [address] Business (1) When:1 to 2 weeks [facility] 03-03-2025 NoteProgress Note-Physician Patient: BINA SEGAL Age: 53 years Sex: Female : 1970 Associated Diagnoses: None Author: Robert Rangel Jr., DO Postoperative Information Postoperative disposition: Postoperative disposition: Home. Optimetrix number: Optimetrix number [id number]. Anesthetic utilized: General. Physical Examination Vital Signs 04/23/2024 8:40 EST Heart Rate Monitored 67 bpm Respiratory Rate Monitored 13 br/min Systolic Blood Pressure 99 mmHg Diastolic Blood Pressure 66 mmHg Mean Arterial Pressure, Cuff 77 mmHg SpO2 98 % 04/23/2024 8:36 EST Heart Rate Monitored 69 bpm Respiratory Rate Monitored 20 br/min SpO2 99 % 04/23/2024 8:29 EST Heart Rate Monitored 75 bpm Respiratory Rate Monitored 20 br/min Systolic Blood Pressure 108 mmHg Diastolic Blood Pressure 63 mmHg Mean Arterial Pressure, Cuff 78 mmHg SpO2 100 % 04/23/2024 8:18 EST Systolic Blood Pressure 96 mmHg Diastolic Blood Pressure 52 mmHg LOW 04/23/2024 8:15 EST Temperature Temporal Artery 36.0 DegC LOW Heart Rate Monitored 70 bpm Respiratory Rate Monitored 16 br/min Systolic Blood Pressure 88 mmHg LOW Diastolic Blood Pressure 49 mmHg LOW Blood Pressure Location Left arm Mean Arterial Pressure, Cuff 62 mmHg SpO2 96 % Pain Assessment: Controlled. General: Awake, Alert, Appropriate. Respiratory: Adequate air exchange, Non-labored. Cardiovascular: Stable, Normal peripheral perfusion. Neurological: Neurologic exam at baseline. No changes.. Assessment Anesthetic outcome No anesthetic complications noted. No nausea/vomiting. Review / Management Condition: Stable. Plan Transfer/Discharge: Transfer/Discharge Discharge when meets criteria ( From PACU to Ambulatory Surgery Unit, and To home ).[facility]:Result Comment: Electronically Signed By: Robert Rangel Jr., DO.jose alberto\Date and Time Signed: 04/23/24 09:17 [id number] NotePatient Education - Text Colon Polyps Polyps are tissue growths inside the body. Polyps can grow in many places, including the large intestine (colon). A polyp may be a round bump or a mushroom-shaped growth. You could have one polyp or several. Most colon polyps are noncancerous (benign). However, some colon polyps can become cancerous over time. Finding and removing the polyps early can help prevent this. What are the causes? The exact cause of colon polyps is not known. What increases the risk? You are more likely to develop this condition if you: ??? Have a family history of colon cancer or colon polyps. ??? Are older than 50 or older than 45 if you are . ??? Have inflammatory bowel disease, such as ulcerative colitis or Crohn's disease. ??? Have certain hereditary conditions, such as: ? Familial adenomatous polyposis. ? Mcdermott syndrome. ? Turcot syndrome. ? Peutz???Jeghers syndrome. ??? Are overweight. ??? Smoke cigarettes. ??? Do not get enough exercise. ??? Drink too much alcohol. ??? Eat a diet that is high in fat and red meat and low in fiber. ??? Had childhood cancer that was treated with abdominal radiation. What are the signs or symptoms? Most polyps do not cause symptoms. If you have symptoms, they may include: ??? Blood coming from your rectum when having a bowel movement. ??? Blood in your stool. The stool may look dark red or black. ??? Abdominal pain. ??? A change in bowel habits, such as constipation or diarrhea. How is this diagnosed? This condition is diagnosed with a colonoscopy. This is a procedure in which a lighted, flexible scope is inserted into the anus and then passed into the colon to examine the area. Polyps are sometimes found when a colonoscopy is done as part of routine cancer screening tests. How is this treated? Treatment for this condition involves removing any polyps that are found. Most polyps can be removed during a colonoscopy. Those polyps will then be tested for cancer. Additional treatment may be needed depending on the results of testing. Follow these instructions at home: Lifestyle ??? Maintain a healthy weight, or lose weight if recommended by your health care provider. ??? Exercise every day or as told by your health care provider. ??? Do not use any products that contain nicotine or tobacco, such as cigarettes and e-cigarettes. If you need help quitting, ask your health care provider. ??? If you drink alcohol, limit how much you have: ? 0???1 drink a day for women. ? 0???2 drinks a day for men. ??? Be aware of how much alcohol is in your drink. In the [place] one drink equals one 12 oz bottle of beer (355 mL), one 5 oz glass of wine (148 mL), or one 1??? oz shot of hard liquor (44 mL). Eating and drinking ??? Eat foods that are high in fiber, such as fruits, vegetables, and whole grains. ??? Eat foods that are high in calcium and vitamin D, such as milk, cheese, yogurt, eggs, liver, fish, and broccoli. ??? Limit foods that are high in fat, such as fried foods and desserts. ??? Limit the amount of red meat and processed meat you eat, such as hot dogs, sausage, jurado, and lunch meats. General instructions ??? Keep all follow-up visits as told by your health care provider. This is important. ? This includes having regularly scheduled colonoscopies. ? Talk to your health care provider about when you need a colonoscopy. Contact a health care provider if: ??? You have new or worsening bleeding during a bowel movement. ??? You have new or increased blood in your stool. ??? You have a change in bowel habits. ??? You lose weight for no known reason. Summary ??? Polyps are tissue growths inside the body. Polyps can grow in many places, including the colon. ??? Most colon polyps are noncancerous (benign), but some can become cancerous over time. ??? This condition is diagnosed with a colonoscopy. ??? Treatment for this condition involves removing any polyps that are found. Most polyps can be removed during a colonoscopy. This information is not intended to replace advice given to you by your health care provider. Make sure you discuss any questions you have with your health care provider. Document Released: 11/03/2004 Document Revised: 05/25/2018 Document Reviewed: 05/25/2018 [employer] Patient Education ??? 2020 [employer] [facility] [employer]. Colonoscopy Care After Surgery Please read the instructions outlined below and refer to this sheet in the next few weeks. These discharge instructions provide you with general information on caring for yourself after you leave thehospital. Your doctor may also give you specific instructions. While your treatment has been planned according to the most current medical practices available, unavoidable complications occasionally occur. If you have any problems or questions after discharge, please call your doctor. ACTIVITY You may r (more content not included)...[facility]03-[facility] NoteHistory and Physical Patient: BINA SEGAL Age: 53 years Sex: Female : 1970 Associated Diagnoses: None Author: Apolinar RADER MD Results Review no changes to [facility] & [facility]Martin [facility] HospitalComment on above:Result Comment: Electronically Signed By: Apolinar RADER MD\.br\Date and Time Signed: 04/23/24 07:35 [id number] NoteProgress Note-Physician Patient: BINA SEGAL Age: 53 years Sex: Female : 1970 Associated Diagnoses: None Author: Robert Rangel Jr., DO Preoperative Information Anesthesia history: Patient history: No prior anesthetic problems. Informed consent: Signed by patient. Re-evaluation prior to induction: Initial evaluation reviewed: No significant change. Review of Systems Respiratory: Negative except as documented in history of present illness. Cardiovascular: Negative except as documented in history of present illness. Health Status Allergies: Allergic Reactions (Selected) No Known Allergies No Known Medication Allergies, Allergies (2) Active Severity Reaction No Known Allergies None Documented No Known Medication Allergies None Documented Current medications: (Selected) Inpatient Medications Ordered Sodium Chloride 0.9% IV Cassia 1000 mL 1,000 mL: 1,000 mL, IV, 20 mL/hr, Routine, Start date 04/23/24 6:38:00 EST, 50 hour(s), Total volume (mL): 1,000, 73.6 kg, 1.81, m2 Prescriptions Prescribed Zofran 4 mg Tab: 4 mg = 1 tab(s), Oral, q6hr, PRN Nausea, take as needed day of bowel prep, # 8 tab(s), Refills(s) 0, Pharmacy: [facility]/pharmacy #[id number], 160, cm, 03/27/24 15:27:00 EST, Height/Length Dosing, 73.6, kg, 03/27/24 15:27:00 EST, Weight Dosing Documented Medications Documented CeleXA 20 mg Tab: 20 mg = 1 tab(s), Oral, Daily, Refills(s) 0, Depression Linzess 290 mcg oral capsule: 290 mcg = 1 cap(s), Oral, Daily, Refills(s) 0, Constipation SUMAtriptan 100 mg Tab: 100 mg = 1 tab(s), Oral, Once, PRN Migraine headache, Refills(s) 0 divalproex sodium 500 mg Oral EC Tab: 500 mg = 1 tab(s), Oral, Daily, Refills(s) 0, Inflammation magnesium oxide 400 mg Tab: 800 mg = 2 tab(s), Oral, Daily, Refills(s) 0, Prophylaxis phentermine 37.5 mg Tab: 37.5 mg = 1 tab(s), Oral, Daily, PRN Other (see comment), Refills(s) 0, Home Medications (7) Active CeleXA 20 mg Tab 20 mg = 1 tab(s), Oral, Daily divalproex sodium 500 mg Oral EC Tab 500 mg = 1 tab(s), Oral, Daily Linzess 290 mcg oral capsule 290 mcg = 1 cap(s), Oral, Daily magnesium oxide 400 mg Tab 800 mg = 2 tab(s), Oral, Daily phentermine 37.5 mg Tab 37.5 mg = 1 tab(s), PRN, Oral, Daily SUMAtriptan 100 mg Tab 100 mg = 1 tab(s), PRN, Oral, Once Zofran 4 mg Tab 4 mg = 1 tab(s), PRN, Oral, q6hr , Medications (1) Active Scheduled: (0) Continuous: (1) Sodium Chloride 0.9% 1,000 mL 1,000 mL, IV, 20 mL/hr PRN: (0) Problem list: All Problems Abdominal pain, left lower quadrant / SNOMED CT 039747521 / Confirmed Anxiety / SNOMED CT 52599866 / Confirmed BMI 28.0-28.9,adult / SNOMED CT 5382781459 / Confirmed Change in bowel habits / SNOMED CT 090174504 / Confirmed Chronic fatigue syndrome / SNOMED CT 50200451 / Confirmed Cyst of kidney / SNOMED CT 9026474777 / Confirmed Irritable bowel syndrome with constipation / SNOMED CT 9697235467 / Confirmed Migraine / SNOMED CT 66951275 / Confirmed Overweight / SNOMED CT 817137457 / Confirmed Smoker / SNOMED CT 798876234 / Confirmed Urethral stenosis / SNOMED CT 807375941 / Confirmed Canceled: Migraines / SNOMED CT 15746065 Histories Past Medical History: No active or resolved past medical history items have been selected or recorded. Procedure history: Tonsillectomy (925512867). Cervical discectomy (447357825). Abdominal hysterectomy (429495489). Colonoscopy (284968140). Social History Social & Psychosocial Habits Alcohol 03/27/2024 Risk Assessment: Denies Alcohol Use Substance Abuse 03/27/2024 Risk Assessment: Denies Substance Abuse Tobacco 03/27/2024 Tobacco Use: 5-9 cigarettes (between 1 Smokeless tobacco use: Never Type: Cigarettes Tobacco use per day: 0.5 Started at age: 12.0 Years Smoking Cessation Yes . Physical Examination Vital Signs 04/23/2024 7:12 EST Temperature Temporal Artery 36 DegC LOW Heart Rate Monitored 77 bpm Respiratory Rate Monitored 17 br/min Systolic Blood Pressure 114 mmHg Diastolic Blood Pressure 62 mmHg Blood Pressure Location Left arm SpO2 96 % Measurements from flowsheet : Measurements 04/23/2024 7:13 EST Height/Length Measured 160 cm Height/Length Dosing 160.0 cm Weight Dosing 73.6 kg BSA Measured 1.81 m2 Body Mass Index Measured 28.75 kg/m2 Weight Measured 73.6 kg Airway: Mallampati classification: II (soft palate, fauces, uvula visible). Respiratory: Lungs are clear to auscultation, Respirations are non-labored. Cardiovascular: Regular rhythm. Plan [place] [employer]hes[employer] (ASA) physical status classification: Class II. Anesthetic Preoperative Plan: Anesthesia General, and -TIVA.[facility] HospitalComment on above:Result Comment: Electronically Signed By: Robert Rangel Jr., DO.jose alberot\Date and Time Signed: 04/23/24 07:19 [id number] Miscellaneous Notes* Telephone Encounter - Kam Suazo - 04/04/2024 2:25 PM EST scheduled * Telephone Encounter - Denise Paulson LPN - 04/04/2024 11:07 AM EST Referral from Dr. Segal to Dr. Kasper for Cystocele, NEW Patient - schedule 1st available spot even if not new, not back to back with another New patient or procedure documented in this encounterCedar [facility] HospitalMdvgyvbhjc08-16-2725 Telephone encounter Note* Telephone Encounter - Kam Suazo - 04/04/2024 2:25 PM EST scheduled [facility] [id number] Telephone encounter Note* Telephone Encounter - Denise Paulson LPN - 04/04/2024 11:07 AM EST Referral from Dr. Segal to Dr. Kasper for Cystocele, NEW Patient - schedule 1st available spot even if not new, not back to back with another New patient or procedure [id number] History of Present illness Narrative* Aziza Segal MD - 03/30/2024 3:45 PM EST Images from the original note were not included. Bina Segal is a 53 y.o. female presents with chief complaint of Follow-up and Constipation (Off and on for last couple of months) HPI: History of Present Illness The patient presents for evaluation of constipation, weight management, abnormal mammogram, cystocele, and migraine. She has experienced severe constipation for the past month, contributing to her fluctuating weight (163 lbs) and abdominal discomfort. She has a long-standing history of constipation and questions ifher cystocele is a factor. Stool softeners have been ineffective. She has a colonoscopy scheduled for 04/23/2024. She takes two magnesium citrate gummies daily and Linzess 290 mcg without consistent relief. She desires weight loss and considers increasing magnesium citrate intake. She is on Adipex and is uncertain about a refill. She has an abnormal mammogram and was asked to return for tomosynthesis. She has not heard from Dr. Kasper regarding her referral. She recently developed hemorrhoids. She takes divalproex daily for migraines and has an excess supply (2.5 bottles) due to early refills. MEDICATIONS Current: Magnesium citrate, Linzess, divalproex, phentermine. MEDICATIONS: Current Outpatient Medications Medication Instructions citalopram (CeleXA) 20 MG tablet TAKE 1 TABLET BY MOUTH EVERY DAY divalproex (Depakote) 500 MG EC tablet TAKE 1 TABLET BY MOUTH IN THE MORNING, DO NOT CRUSH, CHEW, OR SPLIT linaCLOtide (LINZESS) 290 mcg, Oral, Daily before breakfast, Do not crush or chew. phentermine (ADIPEX-P) 37.5 mg, Oral, Daily before breakfast SUMAtriptan (Imitrex) 100 MG tablet TAKE 1 TABLET BY MOUTH 1 TIME IF NEEDED FOR MIGRAINE ALLERGIES: No Known Allergies Review of Systems Constitutional: Negative for chills, fatigue and fever. Respiratory: Negative for cough and shortness of breath. Cardiovascular: Negative for chest pain, palpitations and leg swelling. Gastrointestinal: Positive for constipation. Negative for abdominal pain and vomiting. Skin: Negative for rash. Neurological: Negative for dizziness and light-headedness. Medical, Surgical, Family, and Social History reviewed. OBJECTIVE: Visit Vitals BP 114/78 (BP Location: Right arm, Patient Position: Sitting, BP Cuff Size: Adult) Pulse 84 Temp 98.1 F (Temporal) Ht 5' 3 Wt 163 lb LMP (LMP Unknown) SpO2 95% BMI 28.87 kg/m OB Status Hysterectomy Smoking Status Every Day BSA 1.81 m BP Readings from Last 3 Encounters: 03/30/24 114/78 01/02/24 110/72 11/04/23 130/86 Wt Readings from Last 3 Encounters: 03/30/24 163 lb 01/02/24 167 lb 6.4 oz 12/05/23 169 lb Physical Exam Physical Exam General Appearance: Normal. Vital signs: Weight: 163 lbs. HEENT: Within normal limits. Respiratory: Within normal limits. Skin: Warm and dry, no rash. Neurological: Normal. Results Imaging Abnormal mammogram: 1.3 cm ill-defined area of asymmetric density in the mid- upper left breast. ASSESSMENT AND PLAN: Assessment & Plan 1. Constipation. Phentermine may exacerbate constipation. She is on the highest dosage of Linzess (290 mcg). Advisedto increase magnesium citrate gummies and consider stool softeners. Discussed MiraLAX options. Advised to follow java solutions architect's protocol for colonoscopy on 04/23/2024. 2. Weight management. Achieved 5% weight loss, qualifying for continued Adipex use for a year. Prescription will be sent to pharmacy, to be held until needed. 3. Abnormal mammogram. Advised to follow up with tomosynthesis and ultrasound for further evaluation of the 1.3 cm area. 4. Cystocele. No communication from Dr. Kasper regarding referral. Developed hemorrhoids. A note will be sent to Dr. Kasper to complete the referral process. 5. Migraine. Taking divalproex for migraine management. Advised not to miner pick new refills until necessary due to excess supply. Follow-up in 3 months. Assessment/Plan Health Maintenance Due Topic Date Due Colorectal Cancer Screening Never done documented in this encounterCedar County [facility] HospitalBagjausdkq46-59-2916 NoteGeneral Surgery Office/Clinic Note Chief Complaint consultation for colonoscopy HPI Staff 53 year old female presents to update H&P for planned colonoscopy. Last consultation completed 08/2022 for LLQ pain and constipation. Patient cancelled scheduled colonoscopy as she was not able tocomplete prep due to vomiting. Reports abdominal pain remains unchanged. She continues to experience constipation. Verbalized she is experiencing an increase in the frequency of constipation and the amount of time she experiences constipation. She has added Mag Ox daily with minimal change in symptoms. History of Present Illness 53 yo female with h/o migraines, chronic fatigue syndrome, anxiety, IBS with constipation, here to reschedule colonoscopy; last evaluated 08/2022 for bowel changes, LLQ pain, unable to complete prep for colonoscopy; patient on high dose Linzess with no improvement in constipation; constipation worsesince starting Adipex; patient reports bms every 3-4 days with intermittent crampy LLQ pain; occasional blood with wiping if strains for bm; no N/V or wt loss; abdominal operations significant for hysterectomy; last colonoscopy 12 years ago, reportedly with diverticulosis; no asa or NSAID use; smokes daily; fmhx of colon cancer in patient's grandfather, age at diagnosis unknown. Review of Systems PHQ Score Initial Depression Screen Score: 0 SCORE ROS - Provider Constitutional: no fever, no sweats, no weight loss. Eyes: yes glasses, no blurred vision, no visual loss. ENMT: no dentures, no hoarseness, no swallowing difficulties, no hearing loss, no ear infection(s),no nose bleeds. Cardiovascular: normal blood pressure, no chest pain, regular heartbeat, no heart murmur. Respiratory: no shortness of breath, no cough, no asthma, no wheezing. Gastrointestinal: no nausea, no vomiting, no diarrhea, no constipation, no blood in stool, no change in bowel habits, no abdominal pain, no hepatitis. Genitourinary: no kidney stones, no urine infection, no dysuria. Musculoskeletal: no pain, no weakness. Skin: no changing moles, no rash, no skin lumps. Neurologic: no seizures, no epilepsy, no headache. Psychiatric: no emotional or psychiatric problem. Heme/Lymph: no bleeding problems, no anemia, no blood clots, no transfusions. Allergy/Immunologic: no swollen lymph nodes/glands, no IV drug abuse. Other: Additional ROS info: Except as noted in the above Review of Systems and in the History of Present Illness, all other systems have been reviewed and are negative or noncontributory. Physical Exam Vitals & Measurements HR: 72(Peripheral) RR: 16 BP: 116/68 HT: 63 in HT: 160 cm WT: 73.6 kg WT: 162.26 lb BMI: 28.75 HEENT: normal conjunctiva, sclera clear, no scleral icterus, EOM intact, PERRLA, oral mucosa moist without lesions. Neck: trachea midline, no mass, symmetric, no thyromegaly or nodules, no adenopathy Respiratory: lungs CTA, respirations non labored. Cardiovascular: regular rate and rhythm, no murmur, no pedal edema or varicosities. Gastrointestinal: obese, soft, non distended, no tenderness, no masses, no palpable hernias, diastasis recti no, no hepatosplenomegaly; normal bs Lymphatic: no cervical adenopathy, no supraclavicular adenopathy. Musculoskeletal: normal gait, digits and nails without infection, nodes, cyanosis, clubbing. Skin: no rashes, no lesions, no ulcers, no subcutaneous nodules, induration. Psychiatric/Neuro: oriented to time, place, person, judgement normal, affect appropriate for age, insight intact, no focal deficits. Tests: review of old records completed , Discussed surgical options, risks, and possible complications with patient. Assessment/Plan 1. Abdominal pain, left lower quadrant (R10.32: Left lower quadrant pain) plan colonoscopy under anesthesia for further evaluation, informed consent obtained. patient to trypill prep; will send in Zofran for possible nausea. Ordered: ondansetron, 4 mg = 1 tab(s), Oral, q6hr, PRN Nausea, take as needed day of bowel prep, # 8 tab(s),Refills(s) 0, Pharmacy: [facility]/pharmacy #[id number], 160, cm, 03/27/24 15:27:00 EST, Height/Length Dosing, 73.6, kg, 03/27/24 15:27:00 EST, Weight Dosing E&M of Est. Patient Moderate 30-39 Min 01789 2. Change in bowel habits (R19.4: Change in bowel habit) see # 1 Ordered: ondansetron, 4 mg = 1 tab(s), Oral, q6hr, PRN Nausea, take as needed day of bowel prep, # 8 tab(s),Refills(s) 0, Pharmacy: [facility]/pharmacy #[id number], 160, cm, 03/27/24 15:27:00 EST, Height/Length Dosing, 73.6, kg, 03/27/24 15:27:00 EST, Weight Dosing E&M of Est. Patient Moderate 30-39 Min 18549 3. Irritable bowel syndrome with constipation (K58.1: Irritable bowel syndrome with constipation) see # 1 Ordered: ondansetron, 4 mg = 1 tab(s), Oral, q6hr, PRN Nausea, take as needed day of bowel prep, # 8 tab(s),Refills(s) 0, Pharmacy: [facility]/pharmacy #[id number], 160, cm, 03/27/24 15:27:00 EST, Height/Length Dosing, 73.6, kg, 03/27/24 15:27:00 EST, Weight Dosing E&M of Est. (more content not included)...[facility] HospitalComment on above:Result Comment: Electronically Signed By: DIOR PAIGE, Apolinar Hill\Date and Time Signed: 03/27/24 16:02 [id number] Telephone encounter Note* Telephone Encounter - Kathy Vazquez - 02/06/2024 10:15 AM EST Needs refill on phentermine sent to [facility] in [place]. She is on her last pill. [facility] [id number] Miscellaneous Notes* Telephone Encounter - Kathy Vazquez - 02/06/2024 10:15 AM EST Needs refill on phentermine sent to [facility] in [place]. She is on her last pill. documented in this encounterCedar County Memorial HospitalHwullevzle23-57-1848 History of Present illness Narrative* Aziza Segal MD - 01/02/2024 3:15 PM EST Images from the original note were not included. Bina Bailey Luzma is a 53 y.o. female presents with chief complaint of Breast Cancer Screening (Patient has appt scheduled in 02/2024), Follow-up (Patient reports adipex check in), and Colon Cancer Screening (Patient declining at this time.) HPI: History of Present Illness The patient is a 53-year-old female who presents for evaluation of multiple medical concerns. She reports a weight of 163 pounds as of last week. She experiences frequent constipation and abdominal pain, which she attributes to her dislike of water. She is currently on Linzess 290 mcg for these symptoms. She has considered using magnesium citrate but has had adverse reactions to MiraLAX in the past, including vomiting during a colonoscopy preparation. She underwent a hysterectomy at the age of 39 and has not seen a manager drilling since. She is experiencing discomfort with into her vagina vaginal insertion but reports no loss of bladder control. Patient continues to exercise and follow her diet. MEDICATIONS: Current Outpatient Medications Medication Instructions citalopram (CeleXA) 20 MG tablet TAKE 1 TABLET BY MOUTH EVERY DAY divalproex (Depakote) 500 MG EC tablet TAKE 1 TABLET BY MOUTH IN THE MORNING, DO NOT CRUSH, CHEW, OR SPLIT linaCLOtide (LINZESS) 290 mcg, Oral, Daily before breakfast, Do not crush or chew. phentermine (ADIPEX-P) 37.5 mg, Oral, Daily before breakfast SUMAtriptan (Imitrex) 100 MG tablet TAKE 1 TABLET BY MOUTH 1 TIME IF NEEDED FOR MIGRAINE ALLERGIES: No Known Allergies Review of Systems Constitutional: Negative for chills, fatigue and fever. Respiratory: Negative for cough and shortness of breath. Cardiovascular: Negative for chest pain, palpitations and leg swelling. Gastrointestinal: Positive for constipation. Negative for abdominal pain and vomiting. Skin: Negative for rash. Neurological: Negative for dizziness and light-headedness. Medical, Surgical, Family, and Social History reviewed. OBJECTIVE: Visit Vitals BP 110/72 (BP Location: Right arm, Patient Position: Sitting, BP Cuff Size: Adult) Pulse 85 Temp 98.2 F (Temporal) Ht 5' 3 Wt 167 lb 6.4 oz LMP (LMP Unknown) SpO2 95% BMI 29.65 kg/m OB Status Hysterectomy Smoking Status Every Day BSA 1.84 m BP Readings from Last 3 Encounters: 01/02/24 110/72 11/04/23 130/86 09/29/23 112/68 Wt Readings from Last 3 Encounters: 01/02/24 167 lb 6.4 oz 12/05/23 169 lb 11/04/23 175 lb Physical Exam Vitals reviewed. HENT: Head: Normocephalic and atraumatic. Mouth/Throat: Mouth: Mucous membranes are moist. Cardiovascular: Rate and Rhythm: Normal rate and regular rhythm. Heart sounds: No murmur heard. Pulmonary: Effort: Pulmonary effort is normal. Breath sounds: Normal breath sounds. Skin: General: Skin is warm and dry. Neurological: Mental Status: She is alert. Physical Exam Results ASSESSMENT AND PLAN: Assessment & Plan 1. Constipation. She reports frequent constipation and abdominal pain. She is currently on Linzess 290 mcg, which will be continued with a refill provided. She was advised to increase her water intake and consider flavored water as an alternative. Magnesium citrate was recommended as a safe option to help with bowel movements. 2. Cystocele. She reports unbearable discomfort during intercourse, which may be due to a cystocele. A referral to a manager drilling was made for further evaluation and management. She will be contacted by the referral center soon. 3. weight loss. doing very well. Same meds Follow-up Return in 3 months for follow up. Assessment/Plan Health Maintenance Due Topic Date Due Colorectal Cancer Screening Never done Mammogram 03/25/2023 documented in this encounterCedar County [facility] [id number] History of Present illness Narrative* Aziza Segal MD - 12/05/2023 3:45 PM EDT Images from the original note were not included. Bina Segal is a 52 y.o. female presents with chief complaint of Breast Cancer Screening (Patient declines at this time. ) HPI: History of Present Illness The patient is a 52-year-old female who presents for recheck of her weight and bowel issues. She reports a weight of 169 pounds, a decrease from her previous weights of 175 and 181 pounds. Shedenies experiencing any side effects from her current medication and expresses a desire to continueits use. She also mentions that she has not experienced any migraines since starting the medication. She has been experiencing pain in her tailbone for approximately 2 months. She is not interested inreceiving an injection for this issue. She has requested a note for a new chair at her workplace. MEDICATIONS: Current Outpatient Medications Medication Instructions citalopram (CeleXA) 20 MG tablet TAKE 1 TABLET BY MOUTH EVERY DAY divalproex (Depakote) 500 MG EC tablet TAKE 1 TABLET BY MOUTH IN THE MORNING, DO NOT CRUSH, CHEW, OR SPLIT linaCLOtide (LINZESS) 290 mcg, Oral, Daily before breakfast, Do not crush or chew. phentermine (ADIPEX-P) 37.5 mg, Oral, Daily before breakfast SUMAtriptan (Imitrex) 100 MG tablet TAKE 1 TABLET BY MOUTH 1 TIME IF NEEDED FOR MIGRAINE ALLERGIES: No Known Allergies Review of Systems Medical, Surgical, Family, and Social History reviewed. OBJECTIVE: Visit Vitals Pulse 100 Temp 98.2 F (Temporal) Ht 5' 3 Wt 169 lb LMP (LMP Unknown) SpO2 96% BMI 29.94 kg/m OB Status Hysterectomy Smoking Status Every Day BSA 1.85 m BP Readings from Last 3 Encounters: 11/04/23 130/86 09/29/23 112/68 05/23/23 122/66 Wt Readings from Last 3 Encounters: 12/05/23 169 lb 11/04/23 175 lb 09/29/23 181 lb 3.2 oz Physical Exam Physical Exam Results ASSESSMENT AND PLAN: Assessment & Plan 1. Weight Management. She has successfully lost 12 pounds, reducing her weight from 181 to 169 pounds. Continuation of the current weight loss medication is advised as she reports no significant side effects. If she loses10% of her body weight over 3 months, the medication can be continued for a year. 2. Coccydynia. She reports tailbone pain persisting for about 2 months. Pain management options, including a shot,were discussed but she declined. A note was provided for her to obtain a new chair at work with additional padding for medical reasons. 3. Migraines. She continues to experience migraines but reports no increase in frequency or severity. No new treatment was initiated. Follow-up Return in 1 month for follow up. Assessment/Plan Health Maintenance Due Topic Date Due Colorectal Cancer Screening Never done Mammogram 03/25/2023 documented in [place] encounterJames [place] [id number] History of Present illness Narrative* Aziza Segal MD - 11/04/2023 3:30 PM EDT Images from the original note were not included. Bina Segal is a 52 y.o. female presents with chief complaint of Med Refill HPI: History of Present Illness The patient is a 52-year-old female who presents for evaluation of multiple medical concerns. She reports feeling well overall, with no side effects from her current medications. However, she experiences a jittery sensation for the first hour after taking her medication in the morning, which then subsides. She has lost 6 pounds and is considering increasing her medication dosage. She ran out of her medication on Tuesday and is requesting a new prescription. Additionally, she mentions that menopause has been particularly challenging for her.patient continues to follow her regime of dietand exercise She recalls a previous injury to her coccyx (tailbone) and notes that it has recently started causing discomfort again. She reports no recent falls or injuries that could have triggered this pain. The discomfort is most noticeable when she is sitting. She reports no visible abnormalities such as bumps or rashes. 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 She is considering using a donut cushion for relief but finds them uncomfortable. She is planning to attend a [employer] game next weekend where the seating is metal. MEDICATIONS: Current Outpatient Medications Medication Instructions citalopram (CeleXA) 20 MG tablet TAKE 1 TABLET BY MOUTH EVERY DAY divalproex (Depakote) 500 MG EC tablet TAKE 1 TABLET BY MOUTH IN THE MORNING, DO NOT CRUSH, CHEW, OR SPLIT linaCLOtide (LINZESS) 290 mcg, Oral, Daily before breakfast, Do not crush or chew. phentermine (ADIPEX-P) 37.5 mg, Oral, Daily before breakfast SUMAtriptan (Imitrex) 100 MG tablet TAKE 1 TABLET BY MOUTH 1 TIME IF NEEDED FOR MIGRAINE ALLERGIES: No Known Allergies Review of Systems Medical, Surgical, Family, and Social History reviewed. OBJECTIVE: Visit Vitals BP 130/86 Pulse 77 Temp 98.3 F Ht 5' 3 Wt 175 lb SpO2 96% BMI 31.00 kg/m OB Status Unknown Smoking Status Every Day BSA 1.88 m BP Readings from Last 3 Encounters: 11/04/23 130/86 09/29/23 112/68 05/23/23 122/66 Wt Readings from Last 3 Encounters: 11/04/23 175 lb 09/29/23 181 lb 3.2 oz 05/23/23 176 lb 3.2 oz Physical Exam Physical Exam Vital Signs BMI is 31. Chest clear heart sounds normal no gallops murmurs or rubs Results ASSESSMENT AND PLAN: Assessment & Plan 1. Weight management. She is on the maximum dose of her current medication and has lost 6 pounds. A fresh prescription was sent to [facility] in [place]. The potential benefits and drawbacks of a compounded version of Ozempic were discussed, but she opted to continue with her current medication. She experiences jitteriness for the first hour after taking the medication, but it subsides thereafter. 2. Coccyx pain. Aleve was recommended for pain management. She was advised to avoid sitting on hard surfaces and consider using a foam cushion for comfort. If the pain persists, a note for a padded chair can be provided for her workplace. Assessment/Plan Health Maintenance Due Topic Date Due Colorectal Cancer Screening Never done Mammogram 03/25/2023 documented in this encounterC[facility] [id number] History of Present illness Narrative* Radha Allen - 04/04/2023 6:30 PM EST Bina Bailey Segal is a 52 y.o. female presents today for follow up. HPI: Pt here today for follow up on starting sumatriptan. Pt states migraines are not as frequent, but they start quicker and are much more intense. She gets pain all the way to her neck. She has had to take the Sumatriptan 5 times. She feels like it does help as long as she catches it in time. She has noticed some pattern with them and how the weather is. Discussed increasing Depakote to 500mg. Pt states the cream she had for her skin made her itch worse. She did have a biopsy done on her cesar is waiting for those results. Discussed results with pt. Pt denies any other concerns. SUBJECTIVE: MEDICATIONS: Current Outpatient Medications Medication Instructions citalopram (CeleXA) 20 MG tablet TAKE 1 TABLET BY MOUTH EVERY DAY divalproex (DEPAKOTE) 250 mg, Oral, Daily, Do not crush, chew, or split. Linzess 145 mcg, Oral, Daily before breakfast nabumetone (RELAFEN) 750 mg, Oral, 2 times daily PRN SUMAtriptan (Imitrex) 100 MG tablet TAKE 1 TABLET BY MOUTH 1 TIME IF NEEDED FOR MIGRAINE ALLERGIES: No Known Allergies REVIEW OF SYMPTOMS: Review of Systems Constitutional: Negative for chills, fatigue and fever. HENT: Negative for congestion, ear pain, sinus pressure, sinus pain, sore throat and trouble swallowing. Eyes: Negative. Respiratory: Negative for cough, choking, chest tightness, shortness of breath and wheezing. Cardiovascular: Negative for chest pain and palpitations. Gastrointestinal: Negative. Genitourinary: Negative. Musculoskeletal: Negative. Skin: Negative. Neurological: Negative. Negative for weakness. Psychiatric/Behavioral: Negative. Endocrine: Negative. OBJECTIVE: Visit Vitals BP 128/74 Pulse 76 Temp 97.6 F Ht 5' 3 Wt 176 lb 6.4 oz SpO2 97% BMI 31.25 kg/m OB Status Unknown Smoking Status Every Day BSA 1.89 m Physical Exam Constitutional: Appearance: Normal appearance. HENT: Head: Normocephalic and atraumatic. Eyes: Extraocular Movements: Extraocular movements intact. Cardiovascular: Rate and Rhythm: Normal rate and regular rhythm. Pulmonary: Effort: Pulmonary effort is normal. Breath sounds: Normal breath sounds. Musculoskeletal: General: Normal range of motion. Cervical back: Normal range of motion. Skin: General: Skin is warm and dry. Neurological: General: No focal deficit present. Mental Status: She is alert. Comments: Reflexes equal and symmetrical Psychiatric: Mood and Affect: Mood normal. Behavior: Behavior normal. ASSESSMENT AND PLAN: Assessment/Plan Diagnoses and all orders for this visit: Chronic migraine without aura without status migrainosus, not intractable (CMS/HCC) Assessed. Divalproex increased. - divalproex (Depakote) 500 MG EC tablet; Take 1 tablet (500 mg) by mouth in the morning. Do not crush, chew, or split. Lichen planus Discussed. Continue to follow with dermatology. Entered by _JMartin_, acting as scribe for Dr. Timmons_. Signature _Mikie PAIGE_ Date _04/04/2023_. The documentation recorded by the scribe accurately reflects the service(s) I personally performed and the decisions I made. documented in this [facility]02-01-2024 History of Present illness Narrative* FANI Traylor - 03/24/2023 1:25 PM EST Rash Location: generalized Duration: months Quality: itchy Treatments tried: Current treatments: TAC 0.1 % cream made it worse New patient, referred by Aziza Segal MD All pertinent medical history, medications, and allergies were reviewed. General Exam: alert , oriented to person, place, and time , normal affect, well appearing Unaccompanied A focused exam completed based on patient reported problems, see below: 1. Rash and other nonspecific skin eruption Left Wrist - Anterior [place] patches and plaques Lesion biopsy - Left Wrist - Anterior Type of biopsy: tangential Informed consent: discussed and consent obtained Informed consent comment: The risks and benefits of the biopsy were discussed. Risks include but are not limited to bleeding, infection, scarring, pain, and nerve damage. An opportunity to ask questions prior to the procedure was permitted and all questions were answered. Patient was prepped and draped in usual sterile fashion: area cleansed with alcohol. Anesthesia: the lesion was anesthetized in a standard fashion Anesthetic: 1% lidocaine w/ epinephrine 1-100,000 buffered w/ 8.4% NaHCO3 Instrument used: DermaBlade Hemostasis achieved with: electrodesiccation Outcome: patient tolerated procedure well Outcome comment: The specimen was placed in a prelabeled formalin container to be sent for pathology Post-procedure details: sterile dressing applied and wound care instructions given Post-procedure details comment: Emphasized need to contact clinic for any signs of infection, uncontrollable bleeding, or complications. Dressing type: bandage Additional details: Photo taken yes Amount of lidocaine used: 1.0 cc Specimen A - Dermatopathology exam Differential Diagnosis: GA vs LP Check Margins: No Next Visit: pending biopsy results documented in this [facility]12-28-2023 History of Present illness Narrative* Sabino Laughlin, ROSANGELA - 02/17/2023 2:45 PM EST Bina Segal is a 52 y.o. female presents with chief complaint of rash. HPI: Pt here today for bumps/rash on wrist area/forearms. Pt states she had this about 15 years ago and it went away, came back about a month ago. Pt would like to discuss migraines. She has side effects with Topamax, Ubrelvy caused nausea. SUBJECTIVE: MEDICATIONS: Current Outpatient Medications Medication Instructions citalopram (CeleXA) 20 MG tablet TAKE 1 TABLET BY MOUTH EVERY DAY divalproex (DEPAKOTE) 250 mg, Oral, Daily, Do not crush, chew, or split. Linzess 145 mcg, Oral, Daily before breakfast nabumetone (RELAFEN) 750 mg, Oral, 2 times daily PRN SUMAtriptan (IMITREX) 100 mg, Oral, Once as needed tiZANidine (Zanaflex) 4 MG tablet TAKE 1 TABLET BY MOUTH EVERY 8 HOURS NEEDED for 30 triamcinolone (Kenalog) 0.1 % cream Topical, 2 times daily PRN ALLERGIES: No Known Allergies REVIEW OF SYMPTOMS: Review of Systems Constitutional: Negative for chills, fatigue and fever. HENT: Negative for congestion, ear pain, sinus pressure, sinus pain, sore throat and trouble swallowing. Eyes: Negative for pain and visual disturbance. Respiratory: Negative for cough, choking, chest tightness, shortness of breath and wheezing. Cardiovascular: Negative for chest pain and palpitations. Gastrointestinal: Negative for abdominal pain, blood in stool, constipation, diarrhea, nausea and vomiting. Genitourinary: Negative for difficulty urinating, dysuria and urgency. Musculoskeletal: Negative for arthralgias, joint swelling and myalgias. Skin: Positive for rash. Negative for color change and wound. Neurological: Positive for headaches. Negative for dizziness, weakness and light-headedness. Psychiatric/Behavioral: Negative for behavioral problems, hallucinations, sleep disturbance and suicidal ideas. Endocrine: Negative for cold intolerance, heat intolerance, polydipsia and polyuria. OBJECTIVE: Visit Vitals BP 114/68 Pulse 78 Temp 98.2 F Ht 5' 3 Wt 176 lb 3.2 oz SpO2 96% BMI 31.21 kg/m OB Status Unknown Smoking Status Every Day BSA 1.88 m Physical Exam Constitutional: Appearance: Normal appearance. HENT: Head: Normocephalic and atraumatic. Eyes: Extraocular Movements: Extraocular movements intact. Cardiovascular: Rate and Rhythm: Normal rate and regular rhythm. Pulmonary: Effort: Pulmonary effort is normal. Breath sounds: Normal breath sounds. Musculoskeletal: General: Normal range of motion. Cervical back: Normal range of motion. Skin: General: Skin is warm and dry. Neurological: General: No focal deficit present. Mental Status: She is alert. Psychiatric: Mood and Affect: Mood normal. Behavior: Behavior normal. ASSESSMENT AND PLAN: Assessment/Plan Diagnoses and all orders for this visit: Lichen planus Assessed. Triamcinolone cream prescribed. Referred to dermatology. - triamcinolone (Kenalog) 0.1 % cream; Apply topically 2 (two) times a day as needed (pain and swelling) - Ambulatory referral to Dermatology; Future Chronic migraine without aura without status migrainosus, not intractable (CMS/HCC) Assessed. Divalproex and sumatriptan prescribed, risks vs benefits discussed. - divalproex (Depakote) 250 MG EC tablet; Take 1 tablet (250 mg) by mouth in the morning. Do not crush, chew, or split.. - SUMAtriptan (Imitrex) 100 MG tablet; Take 1 tablet (100 mg) by mouth 1 (one) time if needed for migraine Class 1 obesity due to excess calories without serious comorbidity with body mass index (BMI) of 31.0 to 31.9 in adult Routine physical exercise and a healthy diet to promote weight reduction and improve overall healthencouraged. * Aziza Segal MD - 02/17/2023 2:45 PM EST Refer to Derm Migraines. Topamax gave S/E. Ubrevy nausea documented in this [facility]Evaluation + Plan note No data available for this section [facility] Future Appointments Appointment Date:04/23/2024 08:00:00 AM Scheduled Provider: Location:[facility] Appointment Type:Surgery [facility] General Surgery Vikki Evaluation note* Diagnosis Rash and other nonspecific skin eruption- Primary Lichen planus [facility]* Diagnosis Chronic migraine without aura without status migrainosus, not intractable (CMS/HCC)- Primary Lichen planus [facility]* Diagnosis Coccydynia- Primary Other disorder of coccyx Obesity (BMI 30.0-34.9) 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[facility]* Diagnosis Cystocele, unspecified- Primary Obesity (BMI 30.0-34.9) Irritable bowel syndrome with constipation Irritable bowel syndrome [facility]* Diagnosis Drug-induced constipation Other constipation [facility]* Diagnosis Obesity (BMI 30.0-34.9)- Primary Encounter for screening mammogram for breast cancer Screening for colon cancer Special screening for malignant neoplasms, colon Need for vaccination Need for prophylactic vaccination and inoculation against unspecified single disease Irritable bowel syndrome with constipation Irritable bowel syndrome Chronic fatigue syndrome High risk medication use Weight loss due to medication [facility]* Diagnosis Obesity (BMI 30.0-34.9) [facility]* Diagnosis Anxiety Anxiety state, unspecified [facility]* Diagnosis Chronic migraine without aura without status migrainosus, not intractable (CMS/HCC) [facility]* Diagnosis Chronic migraine without aura without status migrainosus, not intractable (CMS/HCC) [facility]* Diagnosis Irritable bowel syndrome with constipation- Primary Irritable bowel syndrome Obesity (BMI 30.0-34.9) 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[facility]* Diagnosis Anxiety Anxiety state, unspecified [facility]* Diagnosis Lichen planus- Primary Chronic migraine without aura without status migrainosus, not intractable (CMS/HCC) Class 1 obesity due to excess calories without serious comorbidity with body mass index (BMI) of 31.0 to 31.9 in adult documented in this encounter [facility]* Diagnosis Chronic migraine without aura without status migrainosus, not intractable (CMS/HCC) Obesity (BMI 30.0-34.9) documented in this encounter [facility]* Diagnosis Drug-induced constipation Other constipation documented in this encounter [facility]* Diagnosis Obesity (BMI 30.0-34.9) documented in this encounter [facility]* Diagnosis Irritable bowel syndrome with constipation- Primary Irritable bowel syndrome Obesity (BMI 30.0-34.9) documented in this encounter [facility]* Diagnosis Drug-induced constipation Other constipation documented in this encounter [facility] Discharge instructions No data available for this section [facility] No data available for this section [facility] (narrative)* Consultation (Routine) - Authorized Specialty Diagnoses / Procedures Referred By Contac t Referred To Contact Gastroenterology Diagnoses Screening for colon cancer Procedures [place] OFFICE/OUTPATIENT NEW HIGH MDM 60 MINUTES Aziza Segal MD [address] [place] [address] Gregory Jang MD [address] [place] [address], [address], [address] [address] Referral ID Status Reason Start Date Expiration Date Visits Requested Visits Authorized [id number] Authorized Specialty Services Required 11/04/2023 05/02/2024 1 1 [facility] Summary Purpose Family History No Family History Records FoundNo Family History Records Found No data available for this section No data available for this section No Family History Records FoundNo Family History Records FoundNo Family History Records FoundNo Family History Records Found Advance Directives No Advanced Directives Records FoundNo Advanced Directives Records FoundNo Advanced Directives Records FoundNo Advanced Directives Records FoundNo Advanced Directives Records FoundNo Advanced Directives Records Found Additional Source Comments INFORMATION SOURCE (unrecogn ized section and content) DATE CREATED AUTHOR 03/01/2021 [facility] DATE CREATED AUTHOR AUTHOR'S ORGANIZ ATION 04/05/2021 [facility] DATE CREATED AUTHOR AUTHOR'S ORGANIZ ATION 04/27/2024 [facility] DATE CREATED AUTHOR AUTHOR'S ORGANIZ ATION 05/10/2024 [facility] DATE CREATED AUTHOR AUTHOR'S ORGANIZ ATION 07/01/2024 [facility] Specialists EPIC Patient Care team informatio n (unrecognized section and content) Precision Grinder Relationship Specialty Start Date End Date Hilda May MD [address] [place] [address] PCP - [facility] 07/22/22 Aziza Segal MD [address] [place] [address] PCP - General Family Medicine 08/13/22 [employer] Relationship Specialty Start Date End Date Hilda May MD [address] [place] [address] PCP - [place] [facility] 07/22/22 Aziza Segal MD [address] [place] [address] PCP - General Family Medicine 08/13/22 Prec[employer] Grinder Relationship Specialty Start Date End Date Hilda May MD [address] [place] [address] PCP - [place] [facility] 07/22/22 Aziza Segal MD [address] [place] [address] PCP - General Family Medicine 08/13/22 Prec[employer] Grinder Relationship Specialty Start Date End Date Aziza Segal MD [address] [place] [address] PCP - General Family Medicine 08/13/22 Aziza Segal MD [address] [place] [address] PCP - [place] [facility] 03/24/23 Precision Grinder Relationship Specialty Start Date End Date Aziza Segal MD [address] [place] [address] PCP - General Family Medicine 08/13/22 Aziza Segal MD [address] [place] [address] PCP - [place] [facility] 03/24/23 Precision Grinder Relationship Specialty Start Date End Date Aziza Segal MD [address] [place] [address] PCP - General Family Medicine 08/13/22 Aziza Segal MD [address] [place] [address] PCP - [place] [facility] 03/24/23 Precision Grinder Relationship Specialty Start Date End Date Aziza Segal MD [address] [place] [address] PCP - General Family Medicine 08/13/22 Aziza Segal MD [address] [place] [address] PCP - [place] [employer] 03/24/23 Precision Grinder Relationship Specialty Start Date End Date Aziza Segal MD [address] [place] [address] PCP - General Family Medicine 08/13/22 Aziza Segal MD [address] [place] [address] PCP - [place] [facility] 03/24/23 Precision Grinder Relationship Specialty Start Date End Date Aziza Segal MD [address] [place] [address] PCP - General Family Medicine 08/13/22 Aziza Segal MD [address] [place] [address] PCP - [place] [facility] 03/24/23 Precision Grinder Relationship Specialty Start Date End Date Aziza Segal MD [address] [place] [address] PCP - General Family Medicine 08/13/22 Aziza Segal MD [address] [place] [address] PCP - [place] [facility] 03/24/23 Precision Grinder Relationship Specialty Start Date End Date Aziza Segal MD [address] [place] [address] PCP - General Family Medicine 08/13/22 Aziza Segal MD [address] [place] [address] PCP - [place] [facility] 03/24/23 Precision Grinder Relationship Specialty Start Date End Date Aziza Segal MD [address] [place] [address] PCP - General Family Medicine 08/13/22 Aziza Segal MD [address] [place] [address] PCP - [place] [facility] 03/24/23 Precision Grinder Relationship Specialty Start Date End Date Aziza Segal MD [address] [place] [address] PCP - General Family Medicine 08/13/22 Aziza Segal MD [address] [place] [address] PCP - [place] [employer] 03/24/23 Precision Grinder Relationship Specialty Start Date End Date Aziza Segal MD [address] [place] [address] PCP - General Family Medicine 08/13/22 Aziza Segal MD [address] [place] [address] PCP - [place] [employer] 03/24/23 Precision Grinder Relationship Specialty Start Date End Date Aziza Segal MD [address] [place] [address] PCP - General Family Medicine 08/13/22 Aziza Segal MD [address] [place] [address] PCP - [place] [employer] 03/24/23 Precision Grinder Relationship Specialty Start Date End Date Aziza Segal MD [address] [place] [address] PCP - General Family Medicine 08/13/22 Aziza Segal MD [address] [place] [address] PCP - [place] [employer] 03/24/23 Precision Grinder Relationship Specialty Start Date End Date Hilda May MD [address] [place] [address] PCP - [place] [employer] 02/21/22 Aziza Segal MD [address] [place] [address] PCP - General Family Medicine 08/13/22 Reason for Visit (unrecogniz ed section and content) Reason Comments Rash Specialty Diagnoses / Procedures Referred By Contac t Referred To Contact Dermatology Diagnoses Lichen planus Procedures [place] OFFICE/OUTPATIENT NEW HIGH MDM 60 MINUTES Aziza Segal MD [address] [place] [address] Zahra Pathak MD [address] [place] [address] Referral ID Status Reason Start Date Expiration Date V isits Requested Visits Authorized [id number] Closed Specialty Services Required 02/17/2023 08/16/2023 1 1 Reason Comments Breast Cancer Screening Patient declines at this time. Reason Comments Breast Cancer Screening Patient has appt scheduled in 02/2024 Follow-up Patient reports adip ex check in Colon Cancer Screening Patient declining at this time. Reason Onset Date Comments Med Refill 01/23/2024 Reason Comments Med Refill Reason Onset Date Comments Med Refill 02/02/2024 Reason Comments Med Refill Reason Comments Follow-up Constipation Off and on for last couple of months Reason Onset Date Comments Med Refill 04/19/2024 Reason Onset Date Comments Med Refill 04/29/2024 Reason Onset Date Comments Med Refill 05/23/2024 Reason Onset Date Comments Med Refill 08/03/2024 FOR RECORDS PERTAINING TO PATIENTS WHO ARE OR HAVE BEEN ENROLLED IN A CHEMICAL DEPENDENCY/SUBSTANCEABUSE PROGRAM, SOME INFORMATION MAY BE OMITTED. This clinical summary was aggregated from multiple sources. Caution should be exercised in using it in the provision of clinical care. This summary normalizes information from multiple sources, and as a consequence, information in this document may materially change the coding, format and clinical context of patient data. In addition, data may be omitted in some cases. CLINICAL DECISIONS SHOULD BE BASED ON THE PRIMARY CLINICAL RECORDS. [email or web address] provides no warranty or guarantee of the accuracy or completeness of information in this document.
--- NOTE | 2024-08-07 21:46 | CT_ITS ---
The [address] [address] Patient Name: VERA SEGAL MRN: [id number] date: 1970 Sex: F Assigned Patient Location: ED.MAIN Current Patient Location: ED.MAIN Accession/Order Number: [id number] Exam Date: 08/07/2024 22:35 Report Date: 08/07/2024 22:49 At the request of: ANTON FRANKS Procedure: CT abdomen pelvis w con CT abdomen pelvis w con 08/07/2024 10:25 PM SIGNS AND SYMPTOMS: ^diffuse lower abd pain, constipation TECHNIQUE: Multidetector ct axial images of the abdomen and pelvis were obtained with IV contrast. Multiplanar reformats were performed and reviewed to further define anatomy and possible pathology. CT was performed with one or more of the following dose reduction techniques: Automated exposure control, adjustment of the mA and/or kV according to patient size, or use of iterative reconstruction technique. COMPARISON: None. FINDINGS: Lower Chest: Within normal limits. ABDOMEN: Liver: Within normal limits. Bile Ducts: Normal caliber. Gallbladder: No calcified gallstones. Normal caliber wall. Pancreas: Within normal limits. Spleen: Within normal limits. Adrenals: Within normal limits. Kidneys: There is an 11 mm stone in the left renal pelvis. Smaller left-sided renal stones are noted. There is perinephric fat stranding with mild prominence of the left renal collecting system. There is a simple cyst in the right renal cortex requiring no further follow-up. There is 2 mm nonobstructing stone in the right renal collecting system. Pelvis: Reproductive Organs: No pelvic masses. Ureters: Fat stranding is noted along the proximal aspect of the left ureter. Ascending urinary tract infection is not excluded. Bladder: Within normal limits. Bowel: There is a large amount stool within the rectum. There is a moderate to large amount of stool throughout colon. No bowel obstruction. There is no evidence of bowel obstruction. There is a normal appendix in the right lower quadrant. Mesenteric Lymph Nodes: No enlarged mesenteric lymph nodes. Peritoneum: No ascites or free air, no fluid collection. Vessels: Atherosclerotic changes are noted in the abdominal aorta and its branches. Retroperitoneum: Within normal limits. Abdominal Wall: Within normal limits. Bones: Degenerative changes are noted in the lumbar spine. CT/CT abdomen pelvis w con IMPRESSION: There is a large amount stool within the rectum. There is a moderate to large amount of stool throughout colon. No bowel obstruction. There is no evidence of bowel obstruction. There is an 11 mm stone in the left renal pelvis. Smaller left-sided renal stones are noted. There is perinephric fat stranding with mild prominence of the left renal collecting system. Fat stranding is noted along the proximal aspect of the left ureter. Ascending urinary tract infection is not excluded. Impression dictated by: Jackson Adan M.D. 08/07/2024 10:49 PM Dictation Location: [place] [address] Electronically authenticated by: [id number] Date: 08/07/2024 22:49
--- NOTE | 2024-08-07 21:47 | ED_ITS ---
Documented by User: GOLDEN WILKERSON 08/07/24 21:51 HPI HPI - General Adult General Chief complaint: Abdominal Pain Stated complaint: abdominal pain Time Seen by Provider: 08/07/24 21:39 Source: patient Mode of arrival: walk-in Limitations: no limitations History of Present Illness HPI narrative: Patient with a history of IBS-C presents emergency department after running out of her Linzess on Tuesday and stating that she is having severe lower abdominal pain and very dehydrated . Patient states that she is also on Adipex and has had poor fluid intake other than coffee and milk. Patient does state that she is able to strain and have a small bowel movement today but states that the pain in the lower abdomen is constant and severe. Patient denies any radiation of pain into the back or flank region. Patient does state that her urine has an ammonia smell to it . Patient states that she took 2 magnesium citrate Gummies without improvement in symptoms Onset (ago): day(s) (3) Location: Reports abdomen Radiation: Reports non-radiation Severity: severe Quality: Reports stabbing, sharp and constant Pain Consistency: Reports constant Relieving factors: Reports none Exacerbating factors: Reports none Associated symptoms: Denies chest pain, fever/chills or nausea/vomiting Treatments prior to arrival: Reports none Related Data Home Medications ?Medication ?Instructions ?Recorded ?Confirmed citalopram 20 mg tablet 20 mg PO QDAY 10/07/2210/07 linaclotide 145 mcg capsule 145 mcg PO QDAY 10/07/22 0 10/07/22 (Linzess) Previous Rx's ?Medication ?Instructions ?Recorded clindamycin HCl 150 mg capsule 450 mg (3 x 150 mg) PO Q8H 7 days 01/06/23 (Cleocin HCl) #63 caps nabumetone 750 mg tablet 750 mg PO BID PRN pain #14 t abs 01/06/23 Allergies Allergy/AdvReac Type Severity Reaction Status Date / Time No Known Drug Allergies Allergy Verified 08/07/24 21:35 Review of Systems ROS Constitutional Denies: fever Respiratory Denies: shortness of breath Gastrointestinal Reports: abdominal pain Genitourinary Denies: urinary incontinence or blood in urine Neurological Denies: headache PFSH PFS Medical History (Updated 08/08/24 @ 00:08 by Mack Smalls MD) Chronic fatigue syndrome ?G93.32 - Myalgic encephalomyelitis/chronic fatigue syndrome (ICD-10) Change in bowel habits ?R19.4 - Change in bowel habit (ICD-10) Left lower quadrant pain ?R10.32 - Left lower quadrant pain (ICD-10) Gestational diabetes ?O24.419 - Gestational diabetes mellitus in , unspecified control (ICD-10) Anemia ?D64.9 - Anemia, unspecified (ICD-10) Anxiety ?F41.9 - Anxiety disorder, unspecified (ICD-10) Migraine ?G43.909 - Migraine, unspecified, not intractable, without status migrainosus (ICD-10) Kidney stones ?N20.0 - Calculus of kidney (ICD-10) Surgical History (Updated 10/07/22 @ 13:36 by Reba Nelson NP) History of colonoscopy ?Z98.890 - Other specified postprocedural states (ICD-10) History of tonsillectomy ?Z90.89 - Acquired absence of other organs (ICD-10) History of spinal surgery ?Z98.890 - Other specified postprocedural states (ICD-10) History of hysterectomy ?Z90.710 - Acquired absence of both cervix and uterus (ICD-10) Family History (Updated 10/07/22 @ 13:36 by Reba Nelson NP) Other CHF (congestive heart failure) Family history of colon cancer Family history of hypertension Family history of leukemia Family history of ovarian cancer Social History (Updated 10/07/22 @ 13:31 by Reba Nelson NP) Within the past year, how often did you have a drink containing alcohol: never Score interpretation: A score less than 3 is consistent with normal alcohol consumption. 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 level of school completed/degree received: some college, no degree Little interest or pleasure in doing things: not at all Feeling down, depressed, or hopeless: not at all Exam Constitutional Vital Signs, click to edit/add: Last Vital Signs Temp 98.4 F 08/07/24 21:35 Pulse 68 08/08/24 00:45 Resp 20 08/08/24 00:45 BP 111/59 08/08/24 00:45 Pulse Ox 97 08/08/24 00:45 O2 Del Method Room Air 08/08/24 00:45 Documenting provider has reviewed patient's vital signs: yes Common normals: no apparent distress (anxious and pacing in room ) General appearance: cooperative and anxious HENMT Common normals: normocephalic Eye Common normals: PERRL and no scleral icterus Respiratory Common normals: normal respiratory effort Effort & inspection: able to speak in complete sentences Auscultation: clear to auscultation bilaterally Cardio Common normals: no JVD and regular rate GI Inspection: no anasarca present Auscultation: normoactive bowel sounds Palpation: tender (diffuse through lower abdomen) Details: LLQ, RLQ and suprapubic Course Vital Signs Vital signs: Vital Signs Temperature 98.4 F 08/07/24 21:35 Pulse Rate 96 H 08/07/24 21:35 Respiratory Rate 19 08/07/24 21:35 Blood Pressure 121/75 08/07/24 21:35 Pulse Oximetry 98 08/07/24 21:35 Oxygen Delivery Method Room Air 08/07/24 21:35 Temperature 98.4 F 08/07/24 21:35 Pulse Rate 68 08/08/24 00:45 Respiratory Rate 20 08/08/24 00:45 Blood Pressure 111/59 08/08/24 00:45 Pulse Oximetry 97 08/08/24 00:45 Oxygen Delivery Method Room Air 08/08/24 00:45 Medical Decision Making Lab Data Labs: Lab Results 08/07/24 08/07/24 Range/Units 22:00 22:40 WBC 13.4 H (4.0-11.0) 10^3/uL RBC 4.58 (4.20-5.40) 10^6/uL Hgb 14.3 (12.0-16.0) g/dL Hct 41.0 (36.0-48.0) % MCV 89.5 (81.0-99.0) fL MCH 31.2 (26.7-34.0) pg MCHC 34.9 (29.9-35.2) g/dL RDW 12.5 (11.0-15.0) % Plt Count 327 (150-450) 10^3/uL MPV 9.0 L (9.5-13.5) fL Neut % (Auto) 65.8 (43.0-75.0) % Lymph % (Auto) 22.2 (20.5-60.0) % [place] % (Auto) 9.3 (1.7-12.0) % Eos % (Auto) 1.6 (0.9-7.0) % Baso % (Auto) 0.7 (0.2-2.0) % Neut # (Auto) 8.9 H (1.4-6.5) 10^3/uL Lymph # (Auto) 3.0 (1.2-3.8) 10^3/uL [place] # (Auto) 1.3 H (0.3-0.8) 10^3/uL Eos # (Auto) 0.2 (0.0-0.7) 10^3/uL Baso # (Auto) 0.1 (0.0-0.1) 10^3/uL Abs Immat Gran (auto) 0.05 H (0.00-0.03) 10^3/uL Imm/Tot Granulo (auto) 0.4 (0.0-0.5) % Sodium 138 (136-145) mmol/L Potassium 3.6 (3.5-5.1) mmol/L Chloride 100 (98-107) mmol/L Carbon Dioxide 25.2 (21.0-32.0) mmol/L Anion Gap 16.4 BUN 23.0 H (7.0-18.0) mg/dL Creatinine 0.78 (0.55-1.02) mg/dL Est GFR ( Amer) >60 (>=60 mL/min/1.73m^2) Est GFR (Non-Af Amer) >60 (>=60 mL/min/1.73m^2) BUN/Creatinine Ratio 29.5 Glucose 107 H (74-106) mg/dL Lactate 2.2 H* (0.4-2.0) mmol/L Calcium 8.7 (8.5-10.1) mg/dL Total Bilirubin 0.2 (0.2-1.0) mg/dL AST 13 L (15-37) U/L ALT 18 (14-59) U/L Alkaline Phosphatase 95 (46-116) U/L Total Protein 7.5 (6.4-8.2) g/dL Albumin 3.7 (3.4-5.0) g/dL Globulin 3.8 g/dL Albumin/Globulin Ratio 1.0 Lipase 32.0 (16.0-77.0) U/L Urine Color Lt. yellow (YELLOW) Urine Clarity Clear (CLEAR) Urine pH 8.0 (5.0-9.0) Ur Specific [place] 1.010 (1.005-1.025) Urine Protein 30 A (NEG/TRACE) mg/dL Urine Glucose (UA) Negative (NEGATIVE) mg/dL Urine Ketones 15 A (NEGATIVE) mg/dL Urine Occult Blood Moderate A (NEGATIVE) Urine Nitrite Positive A (NEGATIVE) Urine Bilirubin Negative (NEGATIVE) Urine Urobilinogen 1.0 (0.2-1.0) EU/dL Ur Leukocyte Esterase Large A (NEGATIVE) Urine RBC 5-10 A (0-2) #/HPF Urine WBC 20-50 A (NONE SEEN) #/HPF Ur Squamous Epith Cells Few A (NONE/RARE) #/LPF Urine Crystals None seen (None Seen) #/HPF Urine Bacteria Large A (NONE SEEN) #/HPF Urine Casts None seen (NONE SEEN) #/LPF Urine Mucus None seen (NONE SEEN) Ur Culture Indicated? Yes-[facility] [place] Imaging Data Abdominal x-ray: Radiologist's impression: ITS Impressions Abdomen/Pelvis CT 08/07/24 21:46 IMPRESSION: There is a large amount stool within the rectum. There is a moderate to large amount of stool throughout colon. No bowel obstruction. There is no evidence of bowel obstruction. There is an 11 mm stone in the left renal pelvis. Smaller left-sided renal stones are noted. There is perinephric fat stranding with mild prominence of the left renal collecting system. Fat stranding is noted along the proximal aspect of the left ureter. Ascending urinary tract infection is not excluded. Impression dictated by: Jackson Adan M.D. 08/07/2024 10:49 PM Dictation Location: [place] [address] Electronically authenticated by: [id number] Y Date: 08/07/2024 22:49 Discharge Plan Discharge Chief Complaint: Abdominal Pain Clinical Impression: Constipation, UTI (urinary tract infection) Patient Disposition: Home, Self-Care Condition: Good Prescriptions / Home Meds: No Action clindamycin HCl [Cleocin HCl] 150 mg capsule 450 mg PO Q8H 7 Days Qty: 63 0RF nabumetone 750 mg tablet 750 mg PO BID PRN (Reason: pain) Qty: 14 0RF citalopram 20 mg tablet 20 mg PO QDAY Linzess 145 mcg capsule 145 mcg PO QDAY Print Language: Iranian Instructions: Constipation (ED), Urinary Tract Infection in Women (ED) Additional Instructions: follow up with your doctor later this week for recheck Referrals: AZIZA SEGAL [Primary Care Provider, Family Practice] - 1 week Discharge Date/Time: 08/08/24 00:45 Documented by User: Mack Smalls MD 08/11/24 19:27 HPI HPI - General Adult General Chief complaint: Abdominal Pain Stated complaint: abdominal pain Time Seen by Provider: 08/07/24 21:39 Related Data Home Medications ?Medication ?Instructions ?Recorded ?Confirmed citalopram 20 mg tablet 20 mg PO QDAY 10/07/2210/07 linaclotide 145 mcg capsule 145 mcg PO QDAY 10/07/22 0 10/07/22 (Linzess) Previous Rx's ?Medication ?Instructions ?Recorded clindamycin HCl 150 mg capsule 450 mg (3 x 150 mg) PO Q8H 7 days 01/06/23 (Cleocin HCl) #63 caps nabumetone 750 mg tablet 750 mg PO BID PRN pain #14 t abs 01/06/23 Allergies Allergy/AdvReac Type Severity Reaction Status Date / Time No Known Drug Allergies Allergy Verified 08/07/24 21:35 PFSH PFS Medical History (Updated 08/08/24 @ 00:08 by Mack Smalls MD) Chronic fatigue syndrome ?G93.32 - Myalgic encephalomyelitis/chronic fatigue syndrome (ICD-10) Change in bowel habits ?R19.4 - Change in bowel habit (ICD-10) Left lower quadrant pain ?R10.32 - Left lower quadrant pain (ICD-10) Gestational diabetes ?O24.419 - Gestational diabetes mellitus in , unspecified control (ICD-10) Anemia ?D64.9 - Anemia, unspecified (ICD-10) Anxiety ?F41.9 - Anxiety disorder, unspecified (ICD-10) Migraine ?G43.909 - Migraine, unspecified, not intractable, without status migrainosus (ICD-10) Kidney stones ?N20.0 - Calculus of kidney (ICD-10) Surgical History (Updated 10/07/22 @ 13:36 by Reba Nelson NP) History of colonoscopy ?Z98.890 - Other specified postprocedural states (ICD-10) History of tonsillectomy ?Z90.89 - Acquired absence of other organs (ICD-10) History of spinal surgery ?Z98.890 - Other specified postprocedural states (ICD-10) History of hysterectomy ?Z90.710 - Acquired absence of both cervix and uterus (ICD-10) Family History (Updated 10/07/22 @ 13:36 by Reba Nelson NP) Other CHF (congestive heart failure) Family history of colon cancer Family history of hypertension Family history of leukemia Family history of ovarian cancer Social History (Updated 10/07/22 @ 13:31 by Reba Nelson NP) Within the past year, how often did you have a drink containing alcohol: never Score interpretation: A score less than 3 is consistent with normal alcohol consumption. 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 level of school completed/degree received: some college, no degree Little interest or pleasure in doing things: not at all Feeling down, depressed, or hopeless: not at all Exam Constitutional Vital Signs, click to edit/add: Last Vital Signs Temp 98.4 F 08/07/24 21:35 Pulse 68 08/08/24 00:45 Resp 20 08/08/24 00:45 BP 111/59 08/08/24 00:45 Pulse Ox 97 08/08/24 00:45 O2 Del Method Room Air 08/08/24 00:45 Course Vital Signs Vital signs: Vital Signs Temperature 98.4 F 08/07/24 21:35 Pulse Rate 96 H 08/07/24 21:35 Respiratory Rate 19 08/07/24 21:35 Blood Pressure 121/75 08/07/24 21:35 Pulse Oximetry 98 08/07/24 21:35 Oxygen Delivery Method Room Air 08/07/24 21:35 Temperature 98.4 F 08/07/24 21:35 Pulse Rate 68 08/08/24 00:45 Respiratory Rate 20 08/08/24 00:45 Blood Pressure 111/59 08/08/24 00:45 Pulse Oximetry 97 08/08/24 00:45 Oxygen Delivery Method Room Air 08/08/24 00:45 Medical Decision Making MDM Narrative Medical decision making narrative: patient presents with abdominal pain. Seen by PA and care transferred at end of PA shift labs and CT pending. CT returns with stranding along the left ureter c/w ascending UTI. UA positive. CT also with constipation. Patient was able to pass her bowels and is now feeling better. Given dose of Rocephin and dischargd home Lab Data Labs: Lab Results 08/07/24 08/07/24 Range/Units 22:00 22:40 WBC 13.4 H (4.0-11.0) 10^3/uL RBC 4.58 (4.20-5.40) 10^6/uL Hgb 14.3 (12.0-16.0) g/dL Hct 41.0 (36.0-48.0) % MCV 89.5 (81.0-99.0) fL MCH 31.2 (26.7-34.0) pg MCHC 34.9 (29.9-35.2) g/dL RDW 12.5 (11.0-15.0) % Plt Count 327 (150-450) 10^3/uL MPV 9.0 L (9.5-13.5) fL Neut % (Auto) 65.8 (43.0-75.0) % Lymph % (Auto) 22.2 (20.5-60.0) % [place] % (Auto) 9.3 (1.7-12.0) % Eos % (Auto) 1.6 (0.9-7.0) % Baso % (Auto) 0.7 (0.2-2.0) % Neut # (Auto) 8.9 H (1.4-6.5) 10^3/uL Lymph # (Auto) 3.0 (1.2-3.8) 10^3/uL [place] # (Auto) 1.3 H (0.3-0.8) 10^3/uL Eos # (Auto) 0.2 (0.0-0.7) 10^3/uL Baso # (Auto) 0.1 (0.0-0.1) 10^3/uL Abs Immat Gran (auto) 0.05 H (0.00-0.03) 10^3/uL Imm/Tot Granulo (auto) 0.4 (0.0-0.5) % Sodium 138 (136-145) mmol/L Potassium 3.6 (3.5-5.1) mmol/L Chloride 100 (98-107) mmol/L Carbon Dioxide 25.2 (21.0-32.0) mmol/L Anion Gap 16.4 BUN 23.0 H (7.0-18.0) mg/dL Creatinine 0.78 (0.55-1.02) mg/dL Est GFR ( Amer) >60 (>=60 mL/min/1.73m^2) Est GFR (Non-Af Amer) >60 (>=60 mL/min/1.73m^2) BUN/Creatinine Ratio 29.5 Glucose 107 H (74-106) mg/dL Lactate 2.2 H* (0.4-2.0) mmol/L Calcium 8.7 (8.5-10.1) mg/dL Total Bilirubin 0.2 (0.2-1.0) mg/dL AST 13 L (15-37) U/L ALT 18 (14-59) U/L Alkaline Phosphatase 95 (46-116) U/L Total Protein 7.5 (6.4-8.2) g/dL Albumin 3.7 (3.4-5.0) g/dL Globulin 3.8 g/dL Albumin/Globulin Ratio 1.0 Lipase 32.0 (16.0-77.0) U/L Urine Color Lt. yellow (YELLOW) Urine Clarity Clear (CLEAR) Urine pH 8.0 (5.0-9.0) Ur Specific [place] 1.010 (1.005-1.025) Urine Protein 30 A (NEG/TRACE) mg/dL Urine Glucose (UA) Negative (NEGATIVE) mg/dL Urine Ketones 15 A (NEGATIVE) mg/dL Urine Occult Blood Moderate A (NEGATIVE) Urine Nitrite Positive A (NEGATIVE) Urine Bilirubin Negative (NEGATIVE) Urine Urobilinogen 1.0 (0.2-1.0) EU/dL Ur Leukocyte Esterase Large A (NEGATIVE) Urine RBC 5-10 A (0-2) #/HPF Urine WBC 20-50 A (NONE SEEN) #/HPF Ur Squamous Epith Cells Few A (NONE/RARE) #/LPF Urine Crystals None seen (None Seen) #/HPF Urine Bacteria Large A (NONE SEEN) #/HPF Urine Casts None seen (NONE SEEN) #/LPF Urine Mucus None seen (NONE SEEN) Ur Culture Indicated? Yes-[facility] [place] Imaging Data Abdominal x-ray: Radiologist's impression: ITS Impressions Abdomen/Pelvis CT 08/07/24 21:46 IMPRESSION: There is a large amount stool within the rectum. There is a moderate to large amount of stool throughout colon. No bowel obstruction. There is no evidence of bowel obstruction. There is an 11 mm stone in the left renal pelvis. Smaller left-sided renal stones are noted. There is perinephric fat stranding with mild prominence of the left renal collecting system. Fat stranding is noted along the proximal aspect of the left ureter. Ascending urinary tract infection is not excluded. Impression dictated by: Jackson Adan M.D. 08/07/2024 10:49 PM Dictation Location: [place] [address] Electronically authenticated by: [id number] Y Date: 08/07/2024 22:49 Discharge Plan Discharge Chief Complaint: Abdominal Pain Clinical Impression: Constipation, UTI (urinary tract infection) Patient Disposition: Home, Self-Care Condition: Good Prescriptions / Home Meds: No Action clindamycin HCl [Cleocin HCl] 150 mg capsule 450 mg PO Q8H 7 Days Qty: 63 0RF nabumetone 750 mg tablet 750 mg PO BID PRN (Reason: pain) Qty: 14 0RF citalopram 20 mg tablet 20 mg PO QDAY Linzess 145 mcg capsule 145 mcg PO QDAY Print Language: Iranian Instructions: Constipation (ED), Urinary Tract Infection in Women (ED) Additional Instructions: follow up with your doctor later this week for recheck Referrals: AZIZA SEGAL [Primary Care Provider, Family Practice] - 1 week Discharge Date/Time: 08/08/24 00:45
[2024-08-07 22:08] LABS: Basophils Absolute Auto 0.1 10^3/uL (0.0-0.1); Basophils Percent Auto 0.7 % (0.2-2.0); Eosinophils Absolute Auto 0.2 10^3/uL (0.0-0.7); Eosinophils Percent Auto 1.6 % (0.9-7.0); Hemoglobin 14.3 g/dL (12.0-16.0); Immature Granulocytes Abs Auto 0.05 10^3/uL (0.00-0.03); Immature Granulocytes Pct Auto 0.4 % (0.0-0.5); Lymphocytes Percent Auto 22.2 % (20.5-60.0); Mean Corpuscular HGB Conc 34.9 g/dL (29.9-35.2); Mean Corpuscular Hemoglobin 31.2 pg (26.7-34.0); Mean Corpuscular Volume 89.5 fL (81.0-99.0); Monocytes Absolute Auto 1.3 10^3/uL (0.3-0.8); Monocytes Percent Auto 9.3 % (1.7-12.0); Neutrophils Absolute Auto 8.9 10^3/uL (1.4-6.5); Neutrophils Percent Auto 65.8 % (43.0-75.0); Platelet Count 327 10^3/uL (150-450); Red Blood Count 4.58 10^6/uL (4.20-5.40); Red Cell Distribution Width 12.5 % (11.0-15.0); White Blood Count 13.4 10^3/uL (4.0-11.0)
[2024-08-07] MEDS: 0.9 % SODIUM CHLORIDE 1,000 ML 999 ML IV (22:12)
[2024-08-07 22:23] LABS: Alanine Aminotransferase 18 U/L (14-59); Albumin Level 3.7 g/dL (3.4-5.0); Alkaline Phosphatase 95 U/L (46-116); Anion Gap 16.4; Aspartate Amino Transferase 13 U/L (15-37); BUN Creatinine Ratio 29.5; Bilirubin Total 0.2 mg/dL (0.2-1.0); Calcium 8.7 mg/dL (8.5-10.1); Carbon Dioxide 25.2 mmol/L (21.0-32.0); Chloride 100 mmol/L (98-107); Estimated GFR (African America >60 (>=60 mL/min/1.73m^2); Estimated GFR (Non-African Ame >60 (>=60 mL/min/1.73m^2); Globulin 3.8 g/dL; Glucose 107 mg/dL (74-106); Potassium 3.6 mmol/L (3.5-5.1); Sodium 138 mmol/L (136-145); Total Protein 7.5 g/dL (6.4-8.2)
[2024-08-07 22:26] LABS: Lactate/Lactic Acid 2.2 mmol/L (0.4-2.0)
[2024-08-07 22:47] LABS: Bilirubin Urine NEGATIVE (NEGATIVE); Blood Urine MODERATE (NEGATIVE); Clarity Urine CLEAR (CLEAR); Color Urine LT. YELLOW (YELLOW); Glucose Urine UA NEGATIVE (NEGATIVE); Ketones Urine 15 mg/dL (NEGATIVE); Leukocyte Esterase Urine LARGE (NEGATIVE); Nitrite Urine POSITIVE (NEGATIVE); Protein Urine 30 mg/dL (NEG/TRACE)
[2024-08-07 22:54] VITALS: BP 110/57; PULSE 83; O2SAT 97
[2024-08-07 22:55] LABS: Bacteria Urine LARGE #/HPF (NONE SEEN); Cast Seen? NONE SEEN #/LPF (NONE SEEN); Crystals Seen? None Seen #/HPF (None Seen); Mucus Urine NONE SEEN (NONE SEEN); Squamous Epithelial Cell Urine FEW #/LPF (NONE/RARE); Urine Culture Indicated YES-FRMC; WBC Urine 20-50 #/HPF (NONE SEEN)
[2024-08-08] MEDS: CEFTRIAXONE 1,000 MG in 0.9 % SODIUM CHLORIDE 50 ML 100 MG IV (00:07)
[2024-08-08 00:45] VITALS: BP 111/59; PULSE 68; O2SAT 97
== END 2024-08-08 00:45 | disposition home or self-care (01) ==
PROVIDERS: Physician Assistant; Emergency Provider Internal Medicine; PCP Family Medicine
DX: K59.00 Constipation, unspecified (principal); N39.0 Urinary tract infection, site not specified; R10.84 Generalized abdominal pain; N20.0 Calculus of kidney
CPT/HCPCS: 36415; 74177; 80053; 81001; 83605; 83690; 85025; 87086; 87088; 87186; 96365; 99285; J0696; Q9967

== ENCOUNTER 2024-09-24 12:29 | Emergency (ER) | payer BC, SELFPAY ==
[2024-09-24 12:39] VITALS: BP 123/59; PULSE 78; TEMP 36.8; O2SAT 98; BMI 27.3
--- NOTE | 2024-09-24 12:50 | CT_ITS ---
The [address] [address] Patient Name: VERA SEGAL MRN: [id number] date: 1970 Sex: F Assigned Patient Location: ER Current Patient Location: ER Accession/Order Number: [id number] Exam Date: 09/24/2024 13:27 Report Date: 09/24/2024 13:32 At the request of: RORO ALMODOVAR MD Procedure: CT abdomen pelvis wo con CT abdomen pelvis wo con 09/24/2024 1:10 PM SIGNS AND SYMPTOMS: ^LLQ pain hx of stones TECHNIQUE: Multidetector ct axial images of the abdomen and pelvis were obtained without IV contrast. Multiplanar reformats were performed and reviewed to further define anatomy and possible pathology. CT was performed with one or more of the following dose reduction techniques: Automated exposure control, adjustment of the mA and/or kV according to patient size, or use of iterative reconstruction technique. COMPARISON: 08/07/2024 FINDINGS: Lower Chest: Within normal limits. ABDOMEN: Liver: Within normal limits. Bile Ducts: Normal caliber. Gallbladder: No calcified gallstones. Normal caliber wall. Pancreas: Within normal limits. Spleen: Calcified granulomas are present in the spleen. Adrenals: Within normal limits. Kidneys: There is a 1.5 cm stone in the left renal pelvis. There are additional nonobstructing stones in the renal collecting systems bilaterally. There is mild left-sided hydronephrosis similar to the prior exam. Pelvis: Reproductive Organs: No pelvic masses. Ureters: Within normal limits. Bladder: Within normal limits. Bowel: Normal caliber. There is a normal appendix in the right lower quadrant. Mesenteric Lymph Nodes: No enlarged mesenteric lymph nodes. Peritoneum: No ascites or free air, no fluid collection. Vessels: Atherosclerotic changes are noted in the abdominal aorta and its branches. Retroperitoneum: Within normal limits. Abdominal Wall: Within normal limits. Bones: Degenerative changes are noted in the lumbar spine. Degenerative changes are noted in the sacroiliac joints. CT/CT abdomen pelvis wo con IMPRESSION: There is a 1.5 cm stone in the left renal pelvis. There are additional nonobstructing stones in the renal collecting systems bilaterally. There is mild left-sided hydronephrosis similar to the prior exam. Additional nonobstructing renal stones are present bilaterally. No ureteral or bladder stones. No bowel obstruction. Impression dictated by: Jackson Adan M.D. 09/24/2024 1:32 PM Dictation Location: [place] [address] Electronically authenticated by: [id number] Y Date: 09/24/2024 13:32
--- OUTSIDE RECORDS SUMMARY | 2024-09-24 13:03 | XMS_ITS | CCD ---
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 Name Role Phone KAL JACINTO Consulting Unavailable KAL JACINTO Admitting Unavailable ROSE, HILDA Primary Care Unavailable KAL JACINTO Attending Unavailable ROSEHILDA Attending Unavailable ROSE, HILDA Primary Care Unavailable ROSE, HILDA Admitting Unavailable Aziza Segal Primary Care Physician Hilda May MD Unavailable [phone] Aziza Segal MD Primary Care Provider Aziza Segal MD Unavailable [phone] Hilda May MD Unavailable [phone] NILApolinar Bailey Attending Unavailable NILLApolinar Referring Unavailable NILLApolinar Admitting Unavailable NILL, Apolinar Thrasher Attending Unavailable NILLApolinar Attending Unavailable Mack Smalls Admitting Unavailable Mack Smalls Attending Unavailable AZIZA SEGAL Referring Unavailable AZIZA SEGAL Attending Unavailable AZIZA SEGAL Attending Unavailable MAJO ROGER Attending Unavailable AZIZA SEGAL Attending Unavailable AZIZA SEGAL Attending Unavailable AZIZA SEGAL Attending Unavailable AZIZA SEGAL Attending Unavailable AZIZA SEGAL Attending Unavailable Rashida Aguilar Attending Unavailable Aziza Segal Referring Unavailable Allergies Allergy Classification Reported Allergen(s) Allergy Type Date of Onset Reaction(s) Facility (2 sources) No Known Medication Allergies; Translations: [No Known Medication Allergies] Propensity to adverse reactions (disorder) [facility] Repository (1 source) Bee/Wasp/Ant venom Allergy to substance Unknown (qualifier value) [facility] (1 source) Cat Allergy to substance Unknown (qualifier value) [facility] (1 source) Grass Allergy to substance Unknown (qualifier value) [facility] NEGATED: Highlighted row has been ruled out! (1 source) Drug allergy [facility] [place] Medications Current Medications Medication Drug Class(es) Dates Sig (Normalized) Sig (Original) cephalexin 500 mg oral capsule (2 sources) Cephalosporin Antibacterial Start: 08-10-2024 cephalexin (Keflex) 500 MG capsule TAKE 1 CAPSULE TWICE A DAY FOR 5 DAYS 08/10/2024 Active citalopram 20 mg oral tablet (20 sources) Serotonin Reuptake Inhibitor Start: 08-23-2022 End: 04-18-2024 take 1 tablet by mouth once daily CeleXA 20 mg Tab 20 mg = 1 tab(s), Oral, Daily, Refills(s) 0, Depression Start Date: 08/23/22 Status: Ordered Repeat number: 1 estradiol 0.1 mg/ml vaginal cream (10 sources) Estrogen Start: 05-15-2024 estradiol (Estrace) 0.1 MG/GM vaginal cream Indications: Dyspareunia in female , Vaginal atrophy , Vaginal dryness, menopausal Insert 1 g into the vagina See administration instructions Insert 1 gram in vagina daily for 2 weeks. 1 g every other day for 2 weeks. 1 g twice weekly there after. 42.5 g 2 05/15/2024 Active linaclotide 0.29 mg oral capsule (20 sources) Guanylate Cyclase-C Agonist Start: 03-07-2024 take 1 capsule by mouth once daily Linzess 290 mcg oral capsule 290 mcg = 1 cap(s), Oral, Daily, Refills(s) 0, Constipation Start Date: 03/07/24 Status: Ordered Repeat number: 1 Start: 05-23-2023 End: 08-06-2025 take 1 capsule by mouth before mealtime linaCLOtide (Linzess) 290 MCG capsule Indications: Drug-induced constipation Take 1 capsule (290 mcg) by mouth in the morning. Take before meals. Do not crush or chew. 90 capsule 3 08/06/2024 08/06/2025 Active Start: 10-21-2022 End: 10-21-2023 take 1 capsule [...] Refills(s) 0 Start Date: 08/23/22 Status: Ordered magnesium oxide 400 mg oral tablet (3 sources) Start: 03-27-2024 take 2 tablets by mouth once daily magnesium oxide 400 mg Tab 800 mg = 2 tab(s), Oral, Daily, Refills(s) 0, Prophylaxis Start Date: 03/27/24 Status: Ordered Repeat number: 1 ondansetron 4 mg oral tablet (3 sources) Serotonin-3 Receptor Antagonist Start: 03-27-2024 take 1 tablet by mouth every six hours as needed for nausea Zofran 4 mg Tab 4 mg = 1 tab(s), Oral, q6hr, PRN Nausea, take as needed day of bowel prep, # 8 tab(s), Refills(s) 0, Pharmacy: [facility]/pharmacy #[id number], 160, cm, 03/27/24 15:27:00 EST, Height/Length Dosing, 73.6, kg, 03/27/24 15:27:00 EST, Weight Dosing Start Date: 03/27/24 Status: Ordered Quantity: 8.0 Unit: tab(s) Repeat number: 1 Indications: Left lower quadrant pain; Change in bowel habit; Irritable bowel syndrome with constipation; phentermine hydrochloride 37.5 mg oral tablet (20 sources) Sympathomimetic Amine Anorectic Start: 05-28-2024 End: 06-28-2024 take 1 tablet by mouth before mealtime phentermine (Adipex-P) 37.5 MG tablet Indications: Obesity (BMI 30.0-34.9) Take 1 tablet (37.5 mg) by mouth in the morning. Take before meals. 90 tablet 06/28/2024 Active Start: 03-07-2024 End: 05-23-2024 take 1 tablet by mouth before mealtime phentermine (Adipex-P) 37.5 MG tablet Indications: Obesity (BMI 30.0-34.9) Take 1 tablet (37.5 mg) by mouth in the morning. Take before meals. 30 tablet 2 04/23/2024 05/23/2024 Discontinued (Reorder) Start: 02-07-2024 take 1 tablet by aaron [...] Take before meals. 30 tablet 11/04/2023 Active sulfamethoxazole 800 mg / trimethoprim 160 mg oral tablet (3 sources) Dihydrofolate Reductase Inhibitor Antibacterial, Sulfonamide Antimicrobial Start: 08-17-2024 End: 08-27-2024 take 1 tablet by mouth once in the morning, then take 1 tablet by mouth once at bedtime sulfamethoxazole-trimethoprim (Bactrim DS) 800-160 MG per tablet Indications: Acute cystitis without hematuria Take 1 tablet by mouth in the morning and 1 tablet before bedtime. Do all this for 10 days. 20 tablet 08/17/2024 08/27/2024 Active SUMAtriptan 100 mg oral tablet (20 sources) Serotonin-1b and Serotonin-1d Receptor Agonist Start: 02-17-2023 End: 08-21-2025 take 1 tablet by mouth once as needed for headache SUMAtriptan 100 mg Tab 100 mg = 1 tab(s), Oral, Once, PRN Migraine headache, Refills(s) 0 Start Date: 03/27/24 Status: Ordered Repeat number: 1 tiZANidine 4 mg oral tablet (8 sources) [...] End: 04-03-2024 take 1 tablet by mouth once daily divalproex sodium 500 mg Oral EC Tab 500 mg = 1 tab(s), Oral, Daily, Refills(s) 0, Inflammation Start Date: 03/27/24 Status: Ordered Repeat number: 1 Start: 02-17-2023 End: 02-17-2024 take 1 tablet by mouth in the morning divalproex (Depakote) 250 MG EC tablet Indications: Chronic migraine without aura without status migrainosus, not intractable (CMS/HCC) Take 1 tablet (250 mg) by mouth in the morning. Do not crush, chew, or split.. 90 tablet 3 02/17/2023 04/04/2023 Discontinued (Dose adjustment) Completed/Discontinued Medications Medication Drug Class(es) Dates Sig (Normalized) Sig (Original) [id number] 200 actuat albuterol 0.09 mg/actuat metered dose [...] ONCE A DAY for 30 02/17/2023 Discontinued nabumetone 750 mg oral tablet (7 sources) [...] Date Documented Da te Episodic/Chronic Abdominal pain (8 sources) Left lower quadrant pain; Translations: [Left lower quadrant pain] Onset: 09-07-2022 Episodic Anxiety disorders (20 sources) Anxiety; Translations: [Anxiety disorder, unspecified] Onset: 08-13-2022 08-23-2022 Chronic Calculus of urinary tract (6 sources) Kidney stone; Translations: [Calculus of kidney] Onset: 08-30-2024 08-21-2024 Episodic Genitourinary symptoms and ill-defined conditions (2 sources) History of urinary tract infection; Translations: [Personal history of urinary (tract) infections] Onset: 08-30-2024 Episodic Headache; including migraine (20 sources) Migraine; Translations: [Migraine without aura, not refractory ] Onset: 08-13-2022 08-23-2022 Chronic Immunizations and screening for infectious disease (2 sources) Vaccination needed; Translations: [Encounter for immunization] 11-04-2023 Episodic Malaise and fatigue (20 sources) Chronic fatigue syndrome; Translations: [Chronic fatigue syndrome] Onset: 08-13-2022 08-23-2022 Chronic Other aftercare (2 sources) Taking high risk medication; Translations: [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] 11-08-2023 Episodic Other and unspecified benign neoplasm (1 source) Polyp of colon; Translations: [Polyp of colon] Onset: 04-23-2024 Episodic Other gastrointestinal disorders (20 sources) Irritable bowel syndrome characterized by constipation; Translations: [Irritable bowel syndrome with constipation] Onset: 02-26-2018 Resolved: 10-21-2022 Chronic Other gastrointestinal disorders (6 sources) Altered bowel function; Translations: [Change in bowel habit] Onset: 09-07-2022 Episodic Other gastrointestinal disorders (4 sources) Drug-induced constipation; Translations: [Drug induced constipation] 01-23-2024 Episodic Other gastrointestinal disorders (2 sources) Chronic constipation; Translations: [Other constipation] 08-22-2024 Episodic Other gastrointestinal disorders (2 sources) Hyperplastic polyp of intestine 05-09-2024 Episodic Other inflammatory condition of skin (8 [...] Episodic Other nutritional; endocrine; and metabolic disorders (3 sources) Overweight 03-27-2024 Episodic Other nutritional; endocrine; and metabolic disorders (3 sources) Overweight in adulthood with body mass [...] Episodic/Chronic Other diseases of bladder and urethra (4 sources) Urethral stenosis Onset: 10-27-2016 08-23-2022 Episodic Other diseases of kidney and ureters (4 sources) Cyst of kidney Onset: 02-01-2018 08-23-2022 Episodic Unclassified (1 source) CONTACT W/AND (SUSP) EXPOS COVID-19; Translations: [CONTACT W/AND (SUSP) EXPOS COVID-19] Onset: 02-24-2021 Results Test Name Value Interpretation Reference Range Facility Ambulatory Visit Summaryon 0 08-30-2024 Ambulatory Visit Summary Ambulatory Visit Summary BINA SEGAL :1970 Visit Date:08/30/2024 Ambulatory Visit Instructions Your Diagnosis Kidney stones History of UTI Smoker Your Care Team Attending Physician - Jeff PAIGE, Rashida Cheng Primary Care Physician - Aziza Segal MD Referring Physician - Aziza Segal MD This Is Your Medications List Contact prescribing [...] Colonoscopy, Tonsillectomy. Discharge Vitals Heart Rate (Peripheral) 78 Blood Pressure 121/67 Height 160 cm Height 63 in Weight 70.2 kg Weight 154.764 lb BMI 27.42 What to do next You Need to Schedule the Following Appointments Follow Up with Jeff PAIGE, Rashida Cheng URL, URO When: Where: Medications What How Much When Why Instructions [...] prescribing physician if questions or concerns Allergies Bee Stings (Unknown) Cats (Unknown) Grass (Unknown) No Known Medication Allergies Problems Ongoing - Any problem that you are currently receiving treatment for. Abdominal pain, left lower quadrant Anxiety BMI 28.0-28.9,adult Change in bowel habits Chronic fatigue syndrome Cyst of kidney History of UTI Hyperplastic polyp of ascending colon Hyperplastic polyp of sigmoid colon Irritable bowel syndrome with constipation Kidney stones Migraine Overweight Smoker Urethral stenosis Patient Survey You may receive a survey via text or e-mail asking about your office visit. Please share your experience with us by completing your survey. We appreciate your feedback and thank you for choosing us for your care. Education Materials Ureteroscopy Ureteroscopy is a procedure to check for and treat problems inside part of the urinary tract. In this procedure, a long rigid or flexible tube with a lens and light at the end (ureteroscope) is used to look at the inside of the kidneys and the ureters. The ureters are the tubes that carry urine from the kidneys to the bladder. The ureteroscope is inserted into one or both of the ureters. You may need this procedure if you have frequent urinary tract infections (UTIs), blood in your urine, or a stone in one or both of your ureters. A ureteroscopy can be done: ??? To find the cause of urine blockage in a ureter and to evaluate other abnormalities inside the ureters or kidneys. ??? To remove stones. ??? To remove or treat growths of tissue (polyps), abnormal tissue, and some types of tumors. ??? To remove a tissue sample and check it for disease under a microscope (biopsy). Tell a health care provider about: ??? Any allergies you have. ??? All medicines you are taking, including vitamins, herbs, eye drops, creams, and zavq-gqp-jgnnayo medicines. ??? Any problems you or family members have had with anesthetic medicines. ??? Any bleeding problems you have. ??? Any surgeries you have had. ??? Any medical conditions you have. ??? Whether you are or may be . What are the risks? Your health care provider will talk with you about risks. These may include: ??? Abdominal pain or a burning feeling or pain while urinating. ??? Abnormal bleeding. ??? A UTI. ??? Allergic reactions to medicines. ??? Scarring that narrows the ureter (stricture) or swelling. ??? Creating a hole (perforation) in the ureter. ??? Damage to other structures or organs, such as the part of your body that d (more content not included)... Normal [facility] Urine Cultureon 08-07-2024 Bacteria identified Cx Nom (U) ORGANISM: Escherichia coli (O:ESCCOL) [place] Count >100,000 Aerobic VERO Charge ([id number]) -- SUSCEPTIBILITY - ORGANISM: O:ESCCOL ANTIBIOTIC INTERPRETATION VERO Amikacin S <16 Amoxacillin/K Clavulanate S <8 Ampicillin S <8 Ampicillin/Sulbactam S <4 Aztreonam S <4 Cefazolin S <2 Cefepime S <2 Ceftazidime S <1 Ceftazidime/Avibactam S <4 Ceftolozane/Tazobactam S <2 Ceftriaxone S <1 Cefuroxime S <4 Ciprofloxacin R >2 Ertapenem S <0.5 Gentamicin S <2 Levofloxacin R >4 Meropenem S <1 Meropenem/Vaborbactam S <2 Nitrofurantoin S <32 Piperacillin/Tazobactam S <8 Tetracycline S <4 Tigecycline S <2 Tobramycin S <2 Trimethoprim/Sulfametho xazole S <0.5 S = SUSCEPTIBLE I = INTERMEDIATE R = RESISTANT BLANK = DATA NOT AVAILABLE, OR DRUG NOT ADVISABLE OR TESTED R* = RESISTANCE DUE TO EXTENDED SPECTRUM BETA-LACTAMASES ESBL = EXTENDED SPECTRUM BETA-LACTAMASE TFG = THYMIDINE-DEPENDENT STRAIN SARTHAK = BETA-LACTAMASE POSITIVE IB = INDUCIBLE BETA-LACTAMASE. APPEARS IN PLACE OF 'S' WITH SPECIES KNOWN TO POSSESS INDUCIBLE BETA-LACTAMASES. POTENTIALLY THEY MAY BECOME RESISTANT TO ALL B-LACTAM DRUGS. PERFORMED BY: [place] [address] PATHOLOGIST FOOD AND BEVERAGE OPERATIONS MANAGER MOISE JETER M.D. Normal [facility] Comment on above: Performed By: #### C UU #### [address] Ambulatory Visit Summaryon 0 05-09-2024 Ambulatory Visit Summary Ambulatory Visit Summary BINA SEGAL :1970 Visit Date:05/09/2024 Ambulatory Visit Instructions Your Diagnosis Hyperplastic polyp of ascending colon, Hyperplastic polyp of sigmoid colon Abdominal pain, left lower quadrant Your Care Team Attending Physician - BARRERA PAIGE, Apolinar Thrasher Primary Care Physician - Ariel PAIGE, Aziza Ramirez This Is Your Medications [...] choosing us for your care. Dangelo Moralez [facility] General Surgery Office/Clini c Noteon [...] Immunizations Vaccine Date Status Comments SARS-CoV-2 (COVID-19) mRNAMUL.[id number] 01/11/2022 Recorded SARS-CoV-2 (COVID-19) mRNA-1273 vaccine 01/08/2021 Recorded SARS-CoV-2 (COVID-19) mRNA-1273 vaccine 05/30/2020 Recorded 2022-08-23: 50 SARS-CoV-2 (COVID-19) mRNA-1273 vaccine 05/02/2020 Recorded Normal Moralez [facility] Comment on above: Result Comment: Elec tronically Signed By: BARRERA PAIGE, Apolinar Hill\Date and Time Signed: 05/09/24 16:14 EDT Reminderson 05-09-2024 Reminders Reminders From: Regina Craig LPN To: [facility] - Clinical; Sent: 05/09/2024 16:07:50 EDT Show up: 03/26/2029 07:00:00 EST Subject: colonoscopy recall Due Date/Time: 04/23/2029 07:00:00 EST Reminder/Recall Patient due for surveillance colonoscopy 04/23/2029 due to hyperplastic ascending polyp. Normal [facility] Reminders Reminders From: Regina Craig LPN To: [facility] - Clinical; Sent: 05/02/2024 11:28:09 EDT Show up: 03/26/2034 07:00:00 EST Subject: colonoscopy recall Due Date/Time: 04/23/2034 07:00:00 EST Reminder/Recall Patient due for screening colonoscopy 04/23/2034. Normal [facility] Comment on above: Other Comment: error - incorrect recall Surgical Pathology Reporton 04-25-2024 Surgical Pathology Report [facility] [address] [facility] [place] [address]- Surgical Pathology Report Collected Date/Time: 04/23/2024 07:59 EST Pathologist: Emmanuel PAIGE PhD, Hallie Bailey Received Date/Time: 04/23/2024 10:18 EST BARRERA PAIGE, Apolinar RADER MD, Apolinar Pittman Surgical [...] recognition technology and might contain unintended computerized mri special procedures technologist errors. Normal [facility] Comment on above: Performed By: #### [id number] #### [facility] Laboratory [address] [place] [address] Main OR Intraoperative Recor don 04-24-2024 Main OR Intraoperative Record Main OR Intraoperative Record IntraOp Document Type FT Summary Primary Physician: Apolinar RADER MD Finalized Date/Time: 04/24/24 12:03:15 Pt. Name: BINA SEGAL/Sex: 1970 Female Med Rec #: [id number] Physician: Apolinar RADER MD Financial #: [id number] Pt. Type: O Room/Bed: / Admit/Disch: 04/23/24 [...] Wu Role Performed Anesthesiologist Surgeon - Primary Dexigraph Operator - Primary Metal Fence Erector Time In 04/23/24 07:46:00 04/23/24 07:46:00 04/23/24 07:46:00 Time Out 04/23/24 08:14:00 04/23/24 08:14:00 04/23/24 08:14:00 Procedure COLONOSCOPY(.) COLONOSCOPY(.) COLONOSCOPY(.) Comments Dr. Rangel supervising case Last Modified By: Miguelangel AKERS, Kendy Means RN, Kendy Jack RN 04/23/24 08:13:01 F 04/23/24 08:13:01 F 04/23/24 08:13:01 Entry 4 Case Attendee Jigna Wright Role Performed Scrub - Primary Time In 04/23/24 07:46:00 Time Out 04/23/24 08:14:00 Procedure COLONOSCOPY(.) Comments Last Modified By: Kendy Means RN 04/23/24 08:13:01 Perioperative Protocols FT Pre-Care Text: [...] (If Applicable) PreOp Antibiotic No Time Out Apolinar RADER MD Given Participants Carole COLLINS, James Christianson, Miguelangel AKERS, Kyle Gorman Micala E Time Out Complete [...] colon polypectomy. Primary Procedure Yes Primary Surgeon Apolinar RADER MD Start 04/23/24 07:50:00 Stop 04/23/24 08:12:00 Anesthesia [...] and tissue Entry 1 Skin Integrity Intact, [place], Warm, & Skin Abnormality No Dry Outcomes [...] Position Resting (more content not included)... Normal [facility] Discharge Instructionson Discharge Instructions Discharge Instructions BINA [...] When: Within 1 to 2 weeks Where: [address] [place] [address], [facility] [address] [address]- [facility] (1) Medications What How Much When Why [...] into th (more content not included)... Normal [facility] Comment on above: Result Comment: Elec tronically Signed By: Essence AKERS, Mell\.br\Date and Time Signed: 04/23/24 08:22 EST Inpatient Patient Summaryon 04-23-2024 Inpatient Patient Summary Inpatient Patient Summary [address] [address] [facility] Clinical Discharge Instructions PERSON INFORMATION Name: BINA SEGAL [facility]#:[id number] PHYSICIANS Admitting Physician: Apolinar RADER MD Attending Physician: Apolinar RADER MD PCP: Aziza Segal MD Discharge Diagnosis: Colon polyps Comment: PATIENT EDUCATION INFORMATION Instructions: Medication Leaflets: Follow up: With: Address: When: Apolinar RADER [address] [place] [address], [address], [address] [address] [facility] (1) Within 1 to 2 weeks MEDICATION LIST [...] Once as needed Migraine headache. Comment: Normal [facility] Main OR PACU II Recordon Main OR PACU II Record Main OR PACU II Record PACU Phase II Document Type FT Summary Primary Physician: Apolinar RADER MD Finalized Date/Time: 04/23/24 08:52:44 Pt. Name: BINA SEGAL Leo Mora/Sex: 1970 Female Med Rec #: [id number] Physician: Apolinar RADER MD Financial #: [id number] Pt. Type: O Room/Bed: / Admit/Disch: 04/23/24 [...] By: Mell Lowry RN 04/23/24 08:52 Normal [facility] Main OR Preoperative Recordo n 04-23-2024 Main OR Preoperative Record Main OR Preoperative Record Holding Area Document Type FT Summary Primary Physician: Apolinar RADER MD Finalized Date/Time: 04/23/24 07:12:49 Pt. Name: BINA SEGAL Morgan/Sex: 1970 Female Med Rec #: [id number] Physician: Apolinar RADER MD Financial #: [id number] Pt. Type: O Room/Bed: / Admit/Disch: 04/23/24 [...] a small sip of water at 0530. /,RN Finalized By: Kendy Means RN Document Signatures Signed By: Kendy Means RN 04/23/24 07:12 Normal [facility] Outpatient Surgery Discharge Instructionon 04-23-2024 Outpatient Surgery Discharge Instruction Outpatient Surgery Discharge Instruction [place] [id number] Patient Discharge Instructions PERSON INFORMATION Name: BINA SEGAL Date of : 1970 Current Date: 04/23/2024 [...] THE NEAREST EMERGENCY ROOM OR CALL 911 I, BINA SEGAL, have received the attached patient education materials/instructions and have verbalized understanding: May we do a follow up call? Yes No I was present when discharge instructions were given Patient Signature Date Clinican/Nurse Signature _ Date Follow up: With: Address: When: Apolinar RADER [address] [place] [address], [address], [address] [id number] Business (1) Within 1 to 2 weeks Pharmacy Information: You may receive a survey from [employer] asking you to rate your care experience. Your feedback is important and will help us understand what we do well and how we can improve the quality of care we provide to you, your loved ones and our community. It???s an honor to serve you. Thank you for choosing [facility] HERE ARE THE MEDICATION CHANGES THAT [...] PATIENT EDUCATION INFORMATION Instructions: Medication Leaflets: Normal [facility] Ambulatory Visit Summaryon 0 03-27-2024 Ambulatory Visit Summary Ambulatory Visit Summary BINA SEGAL :1970 Visit Date:03/27/2024 Ambulatory Visit Instructions Your Diagnosis Abdominal pain, left lower quadrant Change in bowel habits Irritable bowel syndrome with constipation Your Care Team Attending Physician - BARRERA PAIGE, Apolinar Thrasher Primary Care Physician - Ariel PAIGE, Aziza Ramirez This Is Your Medications [...] for choosing us for your care. Normal [facility] BI MAMMOGRAM SCREENING TOMOS YNTHESIS BILATERALon 03-15-2024 BI MAMMOGRAM SCREENING TOMOSYNTHESIS BILATERAL This [...] Craig LPN To: N - Clinical; Sent: 11/10/2023 12:01:55 EDT Show up: 03/06/2024 07:00:00 EST Subject: appt reminder Due Date/Time: 03/07/2024 07:00:00 EST Reminder/Recall Call patient mid February to schedule consultation for screening colonoscopy. future appointmentFuture Appointments [facility] Vikki Appt. Date: 03/27/2024 3:20 PM Scheduled Provider: Barrera PAIGE, Apolinar Steve, [address] [facility] [address] [place], [address] [place] [address] [place], [address] Phone: -- Fax: -- Dangelo [facility] No Panel Informationon 03-24 Type of biopsy: [...] yes Amount of lidocaine used: 1.0 cc [facility] [employer] [facility] [employer] Q - CULTURE,URINE,ROUTINEon 04-01-2021 CULTURE, URINE, ROUTINE SEE NOTE Abnormal [facility] Worship Pastor Comment on above: Order Comment: [facility] Testing performed at: [facility], [facility], [address] [place] [address], [address] [place] [address], [id number], Music Arranger: Shahram Bravo MD [facility] Collection Date/Time: [id number] [facility] Results Received Date/Time: [facility] Reported Date/Time: [id number] Result Comment: CULT URE, URINE, ROUTINE Micro Number: [id number] Test Status: Final Specimen Source: Urine Specimen [...] loracarbef. Performed By: #### [id number] #### [facility] Laboratory Default [address] [place] [address] Covid-19 PCR (CVDTB)on SARS-CoV-2 (COVID-19) RNA ADRIAN+probe Ql (Unsp spec) Not detected Normal NOT DETECTED The [facility] Comment on above: Result Comment: This test is not yet approved or cleared by the [place] FDA. When there are no FDA-approved or cleared tests available, and other criteria are met, FDA can make tests available under an emergency access mechanism called an Emergency Use Authorization (EUA). The EUA for this test is supported by the Solvent Process Extractor Operator of Health and Human Service's (HHS's) declaration [...] consistent with SARS-CoV-2. Performed By: #### C VDTB #### [facility] [address] [place], [place] [address] Dr. Hallie Benitez Vital Signs Date Time Vital Sign Value Performing Clinician Facility 08-21-2024 10:24-0400 Body height 160 cm Aziza Segal MD Work Phone: [facility] 08-21-2024 10:24-0400 Body mass index (BMI) [Ratio] 27.99 kg/m2 Aziza Segal MD Work Phone: [facility] 08-21-2024 10:24-0400 Body temperature 98.01 [degF] Aziza Segal MD Work Phone: [facility] 08-21-2024 10:24-0400 Body weight 71.67 kg Aziza Segal MD Work Phone: [facility] 08-21-2024 10:24-0400 Diastolic blood pressure 78 mm[Hg] Aziza Segal MD Work Phone: [facility] 08-21-2024 10:24-0400 Heart rate 86 /min Aziza Segal MD Work Phone: [facility] 08-21-2024 10:24-0400 SaO2% (BldA) [Mass fraction] 98 % zAiza Segal MD Work Phone: [facility] 08-21-2024 10:24-0400 Systolic blood pressure 112 mm[Hg] Aziza Segal MD Work Phone: [facility] 06-28-2024 15:55-0400 Body height 160 cm Aziza Segal MD Work Phone: [facility] 06-28-2024 15:55-0400 Body mass index (BMI) [Ratio] 28.34 kg/m2 Aziza Segal MD Work Phone: [facility] 06-28-2024 15:55-0400 Body temperature 98.2 [degF] Aziza Segal MD Work Phone: [facility] 06-28-2024 15:55-0400 Body weight 72.58 kg Aziza Segal MD Work Phone: [facility] 06-28-2024 15:55-0400 Diastolic blood pressure 72 mm[Hg] Aziza Segal MD Work Phone: [facility] 06-28-2024 15:55-0400 Heart rate 87 /min Aziza Segal MD Work Phone: [facility] 06-28-2024 15:55-0400 SaO2% (BldA) [Mass fraction] 98 % Aziza Segal MD Work Phone: [facility] 06-28-2024 15:55-0400 Systolic blood pressure 120 mm[Hg] Aziza Segla MD Work Phone: [facility] 04-23-2024 08:40-0500 Diastolic blood pressure 66 mm[Hg] Apolinar NILL [facility] 04-23-2024 08:40-0500 Heart rate 67 /min Apolinar NILL [facility] 04-23-2024 08:40-0500 Mean blood pressure 77 mm[Hg] Apolinar NILL [facility] 04-23-2024 08:40-0500 Respiratory rate 13 /min Apolinar NILL [facility] 04-23-2024 08:40-0500 SaO2% (BldA) [Mass fraction] 98 % Apolinar NILL [facility] 04-23-2024 08:40-0500 Systolic blood pressure 99 mm[Hg] Apolinar NILL [facility] 04-23-2024 08:36-0500 Heart rate 69 /min Apolinar NILL [facility] 04-23-2024 08:36-0500 Respiratory rate 20 /min Apolinar NILL [facility] 04-23-2024 08:36-0500 SaO2% (BldA) [Mass fraction] 99 % Apolinar NILL [facility] 04-23-2024 08:29-0500 Diastolic blood pressure 63 mm[Hg] Apolinar NILL [facility] 04-23-2024 08:29-0500 Heart rate 75 /min Apolinar NILL [facility] 04-23-2024 08:29-0500 Mean blood pressure 78 mm[Hg] Apolinar NILL [facility] 04-23-2024 08:29-0500 Respiratory rate 20 /min Apolinar NILL [facility] 04-23-2024 08:29-0500 SaO2% (BldA) [Mass fraction] 100 % Apolinar NILL [facility] 04-23-2024 08:29-0500 Systolic blood pressure 108 mm[Hg] Apolinar NILL [facility] 04-23-2024 08:18-0500 Diastolic blood pressure 52 mm[Hg] Apolinar NILL [facility] 04-23-2024 08:18-0500 Systolic blood pressure 96 mm[Hg] Apolinar NILL [facility] 04-23-2024 08:15-0500 Blood Pressure Location Apolinar NILL [facility] 04-23-2024 08:15-0500 Body temperature 96.8 [degF] Apolinar NILL [facility] 04-23-2024 08:15-0500 Mean blood pressure 62 mm[Hg] Apolinar NILL [facility] 04-23-2024 08:10-0500 Respiratory rate 12 /min Apolinar NILL [facility] 04-23-2024 07:50-0500 Respiratory rate 12 /min Apolinar NILL [facility] 04-23-2024 07:12-0500 Blood Pressure Location Apolinar NILL [facility] 04-23-2024 07:12-0500 Body temperature 96.8 [degF] Apolinar RADER [facility] 03-30-2024 15:36-0500 Body height 160 cm Aziza Segal MD Work Phone: [facility] 03-30-2024 15:36-0500 Body mass index (BMI) [Ratio] 28.87 kg/m2 Aziza Segal MD Work Phone: [facility] 03-30-2024 15:36-0500 Body temperature 98.1 [degF] Aziza Segal MD Work Phone: [facility] 03-30-2024 15:36-0500 Body weight 73.94 kg Aziza Segal MD Work Phone: [facility] 03-30-2024 15:36-0500 Diastolic blood pressure 78 mm[Hg] Aziza Segal MD Work Phone: [facility] 03-30-2024 15:36-0500 Heart rate 84 /min Aziza Segal MD Work Phone: [facility] 03-30-2024 15:36-0500 SaO2% (BldA) [Mass fraction] 95 % Aziza Segal MD Work Phone: [facility] 03-30-2024 15:36-0500 Systolic blood pressure 114 mm[Hg] Aziza Segal MD Work Phone: [facility] 03-27-2024 15:21-0500 Blood Pressure Location Apolinar RADER [facility] [place] 03-27-2024 15:21-0500 Diastolic blood pressure 68 mm[Hg] Apolinar RADER [facility] [place] 03-27-2024 15:21-0500 Heart rate 72 /min Apolinar RADER [facility] 03-27-2024 15:21-0500 Respiratory rate 16 /min Apolinar RADER [facility] [place] 03-27-2024 15:21-0500 Systolic blood pressure 116 mm[Hg] Apolinar BELCHERLeo [facility] 01-02-2024 15:02-0500 Body height 160 cm Aziza Segal MD Work Phone: [facility] 01-02-2024 15:02-0500 Body mass index (BMI) [Ratio] 29.65 kg/m2 Aziza Segal MD Work Phone: [facility] 01-02-2024 15:02-0500 Body temperature 98.2 [degF] Aziza Segal MD Work Phone: [facility] 01-02-2024 15:02-0500 Body weight 75.93 kg Aziza Segal MD Work Phone: [facility] 01-02-2024 15:02-0500 Diastolic blood pressure 72 mm[Hg] Aziza Segal MD Work Phone: [facility] 01-02-2024 15:02-0500 Heart rate 85 /min Aziza Segal MD Work Phone: [facility] 01-02-2024 15:02-0500 SaO2% (BldA) [Mass fraction] 95 % Aziza Segal MD Work Phone: [facility] 01-02-2024 15:02-0500 Systolic blood pressure 110 mm[Hg] Aziza Segal MD Work Phone: [facility] 12-05-2023 15:52-0400 Body height 160 cm Aziza Segal MD Work Phone: [facility] 12-05-2023 15:52-0400 Body mass index (BMI) [Ratio] 29.94 kg/m2 Aziza Segal MD Work Phone: [facility] 12-05-2023 15:52-0400 Body temperature 98.2 [degF] Aziza Segal MD Work Phone: [facility] 12-05-2023 15:52-0400 Body weight 76.66 kg Aziza Segal MD Work Phone: [facility] 12-05-2023 15:52-0400 Heart rate 100 /min Aziza Segal MD Work Phone: [facility] 12-05-2023 15:52-0400 SaO2% (BldA) [Mass fraction] 96 % Aziza Segal MD Work Phone: [facility] 11-04-2023 15:40-0400 Body height 160 cm Aziza Segal MD Work Phone: [facility] 11-04-2023 15:40-0400 Body mass index (BMI) [Ratio] 31 kg/m2 Aziza Segal MD Work Phone: [facility] 11-04-2023 15:40-0400 Body temperature 98.29 [degF] Aziza Segal MD Work Phone: [facility] 11-04-2023 15:40-0400 Body weight 79.38 kg Aziza Segal MD Work Phone: [facility] 11-04-2023 15:40-0400 Diastolic blood pressure 86 mm[Hg] Aziza Segal MD Work Phone: [facility] 11-04-2023 15:40-0400 Heart rate 77 /min Aziza Segal MD Work Phone: [facility] 11-04-2023 15:40-0400 SaO2% (BldA) [Mass fraction] 96 % Aziza Segal MD Work Phone: [facility] 11-04-2023 15:40-0400 Systolic blood pressure 130 mm[Hg] Aziza Segal MD Work Phone: [facility] 04-04-2023 18:22-0500 Body height 160 cm Aziza Segal MD Work Phone: [facility] 04-04-2023 18:22-0500 Body mass index (BMI) [Ratio] 31.25 kg/m2 Aziza Segal MD Work Phone: [facility] 04-04-2023 18:22-0500 Body temperature 97.59 [degF] Aziza Segal MD Work Phone: [facility] 04-04-2023 18:22-0500 Body weight 80.02 kg Aziza Segal MD Work Phone: [facility] 04-04-2023 18:22-0500 Diastolic blood pressure 74 mm[Hg] Aziza Segal MD Work Phone: [facility] 04-04-2023 18:22-0500 Heart rate 76 /min Aziza Segal MD Work Phone: [facility] 04-04-2023 18:22-0500 SaO2% (BldA) [Mass fraction] 97 % Aziza Segal MD Work Phone: [facility] 04-04-2023 18:22-0500 Systolic blood pressure 128 mm[Hg] Aziza Segal MD Work Phone: [facility] 02-17-2023 14:51-0500 Body height 160 cm Aziza Segal MD Work Phone: [facility] 02-17-2023 14:51-0500 Body mass index (BMI) [Ratio] 31.21 kg/m2 Aziza Segal MD Work Phone: [facility] 02-17-2023 14:51-0500 Body temperature 98.2 [degF] Aziza Segal MD Work Phone: [facility] 02-17-2023 14:51-0500 Body weight 79.92 kg Aziza Segal MD Work Phone: [facility] 02-17-2023 14:51-0500 Diastolic blood pressure 68 mm[Hg] Aziza Segal MD Work Phone: [facility] 02-17-2023 14:51-0500 Heart rate 78 /min Aziza Segal MD Work Phone: [facility] 02-17-2023 14:51-0500 SaO2% (BldA) [Mass fraction] 96 % Aziza Segal MD Work Phone: [facility] 02-17-2023 14:51-0500 Systolic blood pressure 114 mm[Hg] Aziza Segal MD Work Phone: [facility] 09-07-2022 15:21-0400 Blood Pressure Location Apolinar NILL [facility] [place] 09-07-2022 15:21-0400 Diastolic blood pressure 70 mm[Hg] Apolinar NILL [facility] [place] 09-07-2022 15:21-0400 Heart rate 70 /min Apolinar NILL [facility] [place] 09-07-2022 15:21-0400 Respiratory rate 16 /min Apolinar NILL [facility] [place] 09-07-2022 15:21-0400 Systolic blood pressure 116 mm[Hg] Apolinar NILL [facility] [place] Encounters Encounter Date Encounter Type Care Provider Facility Start: 08-30-2024 End: 08-30-2024 ambulatory Rashida M. Lue Facility:[facility] Start: 08-30-2024 End: 08-30-2024 Patient encounter procedure Rashida M. Lue [facility] Start: 08-23-2024 ambulatory Rashida Lue Facility:[facility] Start: 08-23-2024 ambulatory Rashida Lue Facility:[facility] Start: 08-21-2024 End: 08-21-2024 Bamboo flowsheet Aziza Segal MD Work Phone: [facility] Start: 08-21-2024 End: 08-21-2024 Bamboo flowsheet Aziza Segal MD Work Phone: [facility] Start: 08-21-2024 End: 08-21-2024 Office outpatient visit 25 minutes Aziza Segal MD Work Phone: [facility] Comment on above: Kidney stones (Prima ry Dx); Chronic migraine without aura without status migrainosus, not intractable ; LLQ pain; Chronic constipation Start: 08-21-2024 End: 08-21-2024 ambulatory AZIZA SEGAL Not Available Start: 08-17-2024 End: 08-17-2024 Telephone encounter Aziza Segal MD Work Phone: [facility] Comment on above: Medication Question Start: 08-07-2024 End: 08-07-2024 ambulatory Mack Smalls Facility:[facility] Start: 08-07-2024 End: 08-07-2024 Clinisync Result Encounter Generic External Data Provider [facility] Unsolicited Start: 08-07-2024 End: 08-07-2024 Clinisync Result Encounter Generic External Data Provider [facility] Unsolicited Start: 08-03-2024 End: 08-06-2024 Refill Aziza Segal [...] .9) Start: 05-15-2024 End: 05-15-2024 ambulatory MAJO J NATAPRAWIRA Not Available Start: 05-09-2024 End: 05-09-2024 ambulatory Apolinar Anna Marie BARRERA Facility: [facility] Start: 04-29-2024 End: 04-30-2024 Refill Aziza Segla MD Work Phone: [facility] Comment on above: Drug-induced constip ation Start: 04-23-2024 End: 04-23-2024 ambulatory Apolinar RADER Facility:[facility] Start: 04-23-2024 End: 04-23-2024 Patient encounter procedure Apolinar RADER [facility] Start: 04-19-2024 End: 04-23-2024 Refill Aziza [...] Start: 04-04-2024 End: 04-04-2024 Telephone encounter Denise Khurram DAVIS [facility] Start: 03-30-2024 End: [...] Phone: [facility] Start: 03-30-2024 End: 02-07-2025 Bamboo flowsheet Aziza Segal MD Work Phone: [facility] Start: 03-27-2024 End: 03-27-2024 ambulatory Apolinar Anna Marie BARRERA Facility:[facility] Start: 03-27-2024 End: 03-27-2024 Patient encounter procedure Apolinar RADER [facility] [place] Start: 03-26-2024 End: 03-27-2024 Refill Aziza Segal MD Work Phone: [facility] Comment on above: Chronic migraine wit hout aura without status migrainosus, not intractable ([facility]/HCC) Start: 03-24-2024 End: 03-27-2024 Refill Aziza Segal MD Work Phone: [facility] Comment on above: Chronic migraine wit hout aura without status migrainosus, not intractable ([facility]) Start: 03-15-2024 End: 03-15-2024 ambulatory AZIZA SEGAL [...] Not Available Start: 12-05-2023 End: 12-05-2023 Bamboo flowssuzanne Segal MD Work Phone: [facility] [...] Not Available Start: 11-04-2023 End: 11-04-2023 Bamboo flowssuzanne Segal MD Work Phone: [facility] Start: 11-04-2023 End: 11-04-2023 Bamboo flowssuzanne Segal MD Work Phone: [facility] [...] 03-24-2023 End: 03-24-2023 Patient encounter procedure Haven Barakat DEPARTMENT MANAGER-TRIAGE ASSISTANT Work Phone: [facility] Comment on above: Rash and other nonsp ecific skin eruption (Primary Dx); Lichen planus Start: 02-17-2023 End: 02-17-2023 Postop follow up visit related to original px Aziza Segal MD Work Phone: [facility] Comment on above: Lichen planus (Prima ry Dx); Chronic migraine without aura without status migrainosus, not intractable (CMS/HCC); Class 1 obesity due to excess calories without serious comorbidity with body mass index (BMI) of 31.0 to 31.9 in adult Start: 09-07-2022 End: 09-07-2022 Patient encounter procedure Apolinar RADER [facility] Start: 03-25-2022 End: 04-25-2022 Pre-admission assessment Aziza Segal [facility] Start: 06-24-2021 End: 06-24-2021 Patient encounter procedure Halina Chan Paulette [facility] Start: 02-24-2021 End: 02-24-2021 ambulatory KAL JACINTO Facility:[facility] Start: 02-16-2021 ambulatory HILDA MAY Facility: [facility] Procedures Date Procedure Procedure Detail Performing Clinician Start: 08-07-2024 [facility] Generic External Da ta Provider Start: 04-23-2024 Colonoscopy Aziza Segal MD Work Phone: Start: 04-23-2024 Colonoscopic polypectomy Apolinar BELCHERLoe Start: 04-23-2024 Colonoscopy Rashida Aguilar Start: 03-15-2024 Mammography Aziza Segal MD Work Phone: Start: 03-24-2023 SKIN / NAIL BIOPSY Haven Barakat DEPARTMENT MANAGER-TRIAGE ASSISTANT Work Phone: Start: 08-13-2022 H/O: hysterectomy History of hysterectomy Haven Barakat DEPARTMENT MANAGER-TRIAGE ASSISTANT Work Phone: Start: 03-25-2022 Mammography Haven Barakat DEPARTMENT MANAGER-TRIAGE ASSISTANT Work Phone: Abdominal hysterectomy Morteza BELCHERL Colonoscopy Apolinar BELCHERL Excision of cervical intervertebral disc Apolinar NILL Tonsillectomy Apolinar NILL Plan of Treatment Date Care Activity Detail Author Start: 04-23-2034 Screening for malignant neoplasm of colon [facility] Start: 03-15-2025 Screening for malignant neoplasm of breast Mammogram [facility] Start: 10-22-2024 Influenza vaccination Influenza Vaccine (#1) [facility] Start: 09-28-2024 End: 09-28-2024 Patient encounter procedure 09/28/2024 3:45 PM EDT Office Visit [facility] [address] [place] [address] Aziza Segal MD [address] [place] [address] [facility] Start: 08-21-2024 End: 08-21-2024 Patient encounter procedure MAC[facility] PENA Comment on above: Arrived Start: 07-18-2024 End: 07-18-2024 Patient encounter procedure 07/18/2024 4:00 PM EDT Office Visit [facility] [address] [facility] [address] [place] [address] Majo Roger DO [address] [phone] [facility] Start: 06-28-2024 End: 06-28-2024 Patient encounter procedure [facility] Comment on above: Arrived Start: 05-15-2024 End: 05-15-2024 Patient encounter procedure 05/15/2024 10:00 AM EDT Office Visit [facility] [address] [facility] D [address] [phone] Majo Roger DO [address] [phone] [facility] Start: 04-25-2024 End: 04-25-2024 Patient encounter procedure 04/25/2024 9:00 AM EST Office Visit [facility] [address] [facility] D [address] [phone] Majo Roger DO [address] [facility] D [address] [phone] [facility] Start: 03-30-2024 End: 03-30-2024 Patient encounter procedure [facility] Comment on above: Arrived Start: 03-14-2024 End: 03-14-2024 Professional / ancillary services management 03/14/2024 4:00 PM EST Ancillary Procedure [facility] [address] [facility] [address] [place] [phone] [facility] Start: 01-02-2024 End: 01-02-2024 Patient encounter procedure 01/02/2024 3:15 PM EST Office Visit [facility] [address] [place] [phone] Aziza Segal MD [address] [place] [address] [facility] Start: 12-29-2023 End: 12-29-2023 Professional / ancillary services management 12/29/2023 4:30 PM EST Ancillary Procedure [facility] [address] [facility] [address] [place] [address] [facility] Start: 12-05-2023 End: 12-05-2023 Patient encounter procedure 12/05/2023 3:45 PM EDT Office Visit [facility] [address] [place] [address] Aziza Segal MD [address] [place] [address] [facility] Start: 11-04-2023 End: 11-04-2023 Patient encounter procedure [facility] Comment on above: Arrived Start: 11-04-2023 End: 01-03-2025 DBT Breast - bilateral screening Bilateral screening mammogram with tomosynthesis Imaging Routine Encounter for screening mammogram for breast cancer Expected: 11/04/2023, Expires: 01/03/2025 [facility] Work Phone: Comment on above: Expected: 11/04/2023, Expires: Start: 10-23-2023 Influenza vaccination Influenza Vaccine (#1) [facility] Start: 05-23-2023 End: 05-23-2023 Patient encounter procedure 05/23/2023 5:30 PM EDT Office Visit [facility] [address] [place] [phone] Aziza Segal MD [address] [place] [address] [facility] Start: 04-04-2023 End: 04-04-2023 Patient encounter procedure [facility] Comment on above: Arrived Start: 03-25-2023 Screening for malignant neoplasm of breast [facility] Start: 10-22-2022 Influenza vaccination Influenza Vaccine (#1) [facility] Start: 1970 Screening for malignant neoplasm of colon [facility] Dermatopathology exam Dermatopat hology exam Pathology and Cytology Timed Rash and other nonspecific skin eruption Release Upon Ordering for 1 Occurrences starting 03/24/2023 [facility] Work Phone: Comment on above: Release Upon Ordering for 1 Occurrences starting 03/24/2023 [facility] [place] [facility] Routine 08/07/2024 10:40 PM EDT [facility] Immunizations Immunization Date Immunization Notes Care Provider Fa cility 11-04-2023 Seasonal, quadrivale nt, recombinant, injectable influenza vaccine, preservative free Aziza Segal MD Work Phone: [facility] 11-04-2023 influenza virus vaccine, unspecified formulation Aziza Segal MD Work Phone: [facility] 01-11-2022 influenza, injectabl e, quadrivalent, preservative free Haven Feltchaz DEPARTMENT MANAGER-TRIAGE ASSISTANT Work Phone: [facility] 01-11-2022 Moderna Bivalent Booster Vaccination Haven Feltchaz DEPARTMENT MANAGER-TRIAGE ASSISTANT Work Phone: [facility] 01-11-2022 SARS-CoV-2 (COVID-19 ) [id number] Apolinar RADER [facility] 01-11-2022 influenza virus vaccine, unspecified formulation Haven Bynumchaz DEPARTMENT MANAGER-TRIAGE ASSISTANT Work Phone: [facility] 01-08-2021 influenza, injectabl e, quadrivalent, preservative free Haven Feltchaz DEPARTMENT MANAGER-TRIAGE ASSISTANT Work Phone: [facility] 01-08-2021 SARS-CoV-2 (COVID-19 ) mRNA-1273 vaccine Apolinar RADER [facility] 05-30-2020 SARS-CoV-2 (COVID-19 ) mRNA-1273 vaccine Apolinar RADER [facility] Comment on above: Result Comment: 202203: 49 05-02-2020 SARS-CoV-2 (COVID-19 ) mRNA-1273 vaccine Apolinar BELCHERLeo [facility] [place] 11-19-2019 seasonal influenza, intradermal, preservative free Haven Barakat DEPARTMENT MANAGER-TRIAGE ASSISTANT Work Phone: [facility] Payers Date Payer Category Payer Private Health Insurance [id number] 2022 Blue [place] [employer] BCBS [id number] 2022 Unknown BCBS BCBS [id number] [id number] 2022-Present [phone] [address] [place] [phone] 2022 Unknown [id number] 1970 Unknown [id number] [id number] .2.593 1969 Unknown [id number] .[id number] .2.593 1969 Unknown [id number] 2.16.840.1.857685.3.579 .2.727 1969 Unknown [id number] 2.16.840.1.782802.3.579 .2.727 1969 Unknown [id number] 2.16.840.1.674738.3.579 .2.727 1969 Unknown [id number] 2.16.840.1.844323.3.579 .2.9 1969 Unknown [id number] 2.16.840.1.982906.3.579 .2.9 1969 Unknown [id number] 2.16.840.1.587502.3.579 .2.1258 1969 Unknown [id number] 2.16.840.1.283091.3.579 .2.9 1969 Unknown [id number] 2.16.840.1.953827.3.579 .2.1258 1969 Unknown [id number] 2.16.840.1.089428.3.579 .2.1258 1969 Unknown [id number] 2.16.840.1.363137.3.579 .2.1258 1969 Unknown [id number] 2.16.840.1.080662.3.579 .2.1258 1969 Unknown [id number] 2.16.840.1.197472.3.579 .2.9 1969 Unknown [id number] [id number] .2.727 1959 Unknown [id number] Social History Date Type Detail Facility Tobacco smoking status Current e very day smoker [facility] Start: 02-17-2023 End: 03-29-2024 Sex Assigned At Female [facility] Tobacco smoking status [facility] Start: 09-07-2022 End: 08-30-2024 Tobacco smoking status Light tobacco smoker (finding) [facility] [place] Tobacco smoking status Never [facility] Start: 08-13-2022 End: 11-04-2023 Tobacco smoking status NHIS Smokes tobacco daily [facility] History of tobacco use Cigarette Smoker [facility] Start: 08-13-2022 End: 03-29-2024 Cigarettes smoked current (pack per day) - Reported 0.3 [facility] History of tobacco use Passive smoker [facility] Start: 08-13-2022 End: 11-04-2023 Tobacco use and exposure Smokeless tobacco non-user [facility] Start: 03-24-2023 End: 08-21-2024 Alcohol intake Ex-drinker (finding) [facility] Within [...] To some extent [facility] (I/We) worried whe er (my/our) food would run out before (I/we) got money to buy more. Never true [facility] Start: 03-04-2023 Alcohol Comment caffeine: 3-4 cups per day [facility] Healthcare Start: 1970 Sex Assigned At Not on file [facility] Start: 05-08-2010 Sex Female (finding) [facility] Functional Status Date Assessment Result Facility 04-23-2024 Functional Status N/A [facility] 03-27-2024 Functional Status N/A [facility] General Surgery [place] 09-07-2022 Functional Status N/A [facility] [place] Clinical Notes 02-17-2023 to 08-30-2024 Aziza Segal MD - 08/21/2024 10:15 AM EDTTelephone Encounter - Sergio Correia - 08/17/2024 8:16 AM EDTTelephone Encounter - Sergio Correia - 08/17/2024 8:16 AM EDT Note Date & Type Note Facility 08-30-2024 Note Urology Office/Clini c Note Chief Complaint Referral Dr. Segal for kidney stones HPI Staff 53 year old female referred by Dr. Segal for kidney stones CT AP w con 08/07/24 Pt. does have a H/O kidney stones. Pt. last kidney stone she passed on her own was 5 years ago. BBSQ 11 Pt. denies having incontinence Pt. denies having pain with urination Pt. denies having gross hematuria, Pt. states occasionally will have a rust colored urine Pt. having abd pain, Pt. does have IBSC and has been several days since having a BM Pt. denies having flank pain History of Present Illness Tests reviewed: reviewed UA and external records: primary care notes, CT, UCx. I have reviewed the previous health record information and history for this patient from external provider I have reviewed and verified the staff HPI to be accurate for this encounter. Review of Systems PHQ Score Initial Depression Screen Score: 0 SCORE ROS - Provider Constitutional: denies weight loss, denies hot flashes. Eyes: denies eye problems. Gastrointestinal: denies nausea, denies vomiting. Cardiovascular: denies chest pain or angina. Integumentary: no dryness Musculoskeletal: denies musculoskeletal symptoms. ENMT: denies otolaryngeal symptoms. Respiratory: no shortness of breath. Heme/Lymph: denies easy bleeding tendency, denies easy bruising tendency. Psychiatric: no confusion, no anxiety. Genitourinary: See HPI. Physical Exam Vitals & Measurements HR: 78(Peripheral) BP: 121/67 HT: 160 cm HT: 63 in WT: 154.764 lb WT: 70.2 kg BMI: 27.42 General Appearance: alert , no acute distress, well nourished, well developed female. Head: normocephalic . Eyes: normal orbit and globe. ENMT: normal examination of external ears. Psychiatric: cooperative, affect appropriate for age, normal judgement, euthymic mood. Assessment/Plan 53 yo F referred by Dr. Aziza Segal for kidney stones. BBSQ 11 1. Kidney stones (N20.0: Calculus of kidney) Last stone episode was 5 years ago that she passed on her own. Reports IBSC. 8 mm ureteral stone surgically treated in [place] years ago. Does not recall stent placement. Has completed 24 hour urine in the distant past. Admits she hates the taste of water. Used to drink a high intake of milk, has drastically decreased and has been increasing her water intake from baseline however admits she is only drinking 1 bottle of water daily. CT AP w con 08/07/24 [facility] - 11 mm stone in the Left renal pelvis with perinephric fat stranding and along the proximal left ureter, with pelviectasis. Simple cyst in the right renal cortex requiring no further follow-up. 2 mm stone in the right renal collecting system. Unable to independently review CT, will reach out to [facility] to push image over. Reports L flank pain 4-5 days ago. Currently experiencing pain from IBSC. Discussed management options including extracorporeal shockwave lithotripsy vs ureteroscopy with laser lithotripsy/stone basket extraction possible stent. Risks/benefits of each were discussed including but not limited to: ESWL-bleeding, hematoma, pain, infection, inability to break up the stone, ureteral obstruction, cardiac arrhythmias, damage to surrounding structures and need for additional procedures; ureteroscopy - bleeding, pain, infection, damage to surrounding structures, ureteral perforation, stricture, inability to treat the stone and need for additional procedures. If a stent is placed, pt understands this is not permanent and needs to be removed or exchanged within 3 months to prevent encrustation, infection, permanent renal damage and need for more invasive procedures. She elects to proceed with URS and laser litho. -Schedule cystoscopy, left ureteroscopy with laser litho/basket extraction, L stent, risks as above -Will confirm that pt does not need to hold Adipex-P prior to surgery -Focus on more fluid intake - Metabolic workup in the future given recurrent stones -Present to ER for fever, chills, uncontrolled pain given location of stone should the risk of obstruction and sepsis. 2. History of UTI (Z87.440: Personal history of urinary (tract) infections) UCx 08/10/24 - >100k E Coli, R to Cipro, Levofloxacin, tx'd with Keflex UA today shows trace-intact blood. Applies Estradiol cream through primary care. -Increase fluid intake 3. Smoker (F17.200: Nicotine dependence, unspecified, uncomplicated) Since 1983. <1 PPD. Cessation encouraged. Increased risk for urothelial CA. Follow-up With When Contact Information Jeff PAIGE, Rashida Cheng, URL, URO Additional Instructions: Schedule cysto, L URS, L laser litho/basket extraction, L stent Patient Education Ureteroscopy I, Nichelle eBll, personally scribed for Dr. Aguilar on 08/30/2024 11:15:16. . Documentation recorded by the scribe, Nichelle Bell, accurately reflects the services(s) I performed and decisions made by me. Authenticated by (more content not included)... [facility] Comment on above: Result Comment: Elec tronically Signed By: Rashida Aguilar MD\.br\Date and Time Signed: 08/30/24 16:47 EDT\.br\Electronically Co-Signed By: Nichelle Bell\.br\Date and Time Co-Signed: 08/30/24 11:15 EDT\.br\Electronically Co-Signed By: Nichelle Bell\.br\Date and Time Co-Signed: 08/30/24 11:18 EDT 08-30-2024 Hospital Discharg e instructions Patient Education 08/30/2024 11:11:08 Ureteroscopy Ureteroscopy Ureteroscopy is a procedure to check for and treat problems inside part of the urinary tract. In this procedure, a long rigid or flexible tube with a lens and light at the end (ureteroscope) is used to look at the inside of the kidneys and the ureters. The ureters are the tubes that carry urine from the kidneys to the bladder. The ureteroscope is inserted into one or both of the ureters. You may need this procedure if you have frequent urinary tract infections (UTIs), blood in your urine, or a stone in one or both of your ureters. A ureteroscopy can be done: To find the cause of urine blockage in a ureter and to evaluate other abnormalities inside the ureters or kidneys. To remove stones. To remove or treat growths of tissue (polyps), abnormal tissue, and some types of tumors. To remove a tissue sample and check it for disease under a microscope (biopsy). Tell a health care provider about: Any allergies you have. All medicines you are taking, including vitamins, herbs, eye drops, creams, and jawp-hpe-epvkpgl medicines. Any problems you or family members have had with anesthetic medicines. Any bleeding problems you have. Any surgeries you have had. Any medical conditions you have. Whether you are or may be . What are the risks? Your health care provider will talk with you about risks. These may include: Abdominal pain or a burning feeling or pain while urinating. Abnormal bleeding. A UTI. Allergic reactions to medicines. Scarring that narrows the ureter (stricture) or swelling. Creating a hole (perforation) in the ureter. Damage to other structures or organs, such as the part of your body that drains urine from your bladder (urethra), your bladder, or your uterus. What happens before the procedure? When to stop eating and drinking 8 hours before your procedure ?Stop eating most foods. Do not eat meat, fried foods, or fatty foods. ?Eat only light foods, such as toast or crackers. ?All liquids are okay except energy drinks and alcohol. 6 hours before your procedure ?Stop eating. ?Drink only clear liquids, such as water, clear fruit juice, black coffee, plain tea, and sports drinks. ?Do not drink energy drinks or alcohol. 2 hours before your procedure ?Stop drinking all liquids. ?You may be allowed to take medicines with small sips of water. Medicines Ask your health care provider about: Changing or stopping your regular medicines. These include any diabetes medicines or blood thinners you take. Taking medicines such as aspirin and ibuprofen. These medicines can thin your blood. Do not take these medicines unless your health care provider tells you to. Taking rczf-kzs-pavafpk medicines, vitamins, herbs, and supplements. General instructions Do not use any products that contain nicotine or tobacco for at least 4 weeks before the procedure. These products include cigarettes, chewing tobacco, and vaping devices, such as e-cigarettes. If you need help quitting, ask your health care provider. If you will be going home right after the procedure, plan to have a responsible adult: ?Take you home from the hospital or clinic. You will not be allowed to drive. ?Care for you for the time you are told. Ask your health care provider what steps will be taken to help prevent infection. These may include: ?Washing skin with a soap that kills germs. ?Receiving antibiotic medicine. Tests You may have an exam or testing. ?You may have a urine sample taken to check for infection. What happens during the procedure? An IV will be inserted into one of your veins. You may be given: ?A sedative. This helps you relax. ?Anesthesia. This will: ?Numb certain areas of your body. ?Make you fall asleep for surgery. Your urethra will be cleaned with a germ-killing solution. The ureteroscope will be passed through your urethra into your bladder. A salt-water solution will be sent through the ureteroscope to fill your bladder. This will help the health care provider see the openings of your ureters more clearly. The ureteroscope will be passed into your ureter. ?If a growth is found, a biopsy may be done. ?If a stone is found, it may be removed through the ureteroscope, or the stone may be broken up using a laser, shock waves, or electrical energy. ?In some cases, if the ureter is too small, a tube may be inserted that keeps the ureter open (ureteral stent). The stent may be left in place for 1 or 2 weeks, and then the ureteroscopy procedure will be done again. The scope will be removed, and your bladder will be emptied. The procedure may vary among health care providers and hospitals. What happens after the procedure? Your blood pressure, heart rate, breathing rate, and blood oxygen level will be monitored until you leave the hospital or clinic. It is up to you to get the results of your procedure. Ask your health care provider, or the department that is doing the procedure, when your results will be ready. Summary Ureteroscopy is a procedure used to look at the inside of the kidneys and the ureters. You may need this procedure if you have frequent urinary tract infections (UTIs), blood in your urine, or a stone in one or both of your ureters. Follow instructions from your health care provider about eating and drinking. In some cases, if the ureter is too small, a tube may be inserted that keeps the ureter open (ureteral stent). The stent may be left in place for 1 or 2 weeks to keep the ureter open, and then the ureteroscopy procedure will be done again. This information is not intended to replace advice given to you by your health care provider. Make sure you discuss any questions you have with your health care provider. Document Revised: 01/10/2023 Document Reviewed: 01/10/2023 [employer] Patient Education 2023 [email or web address]. Follow Up Care 08/23/2024 15:50:04 With:Jeff PAIGE, Rashida M., URL, URO Address: When: Unknown [facility] 08-30-2024 Note Patient Education Urology Ureteroscopy Ureteroscopy is a procedure to check for and treat problems inside part of the urinary tract. In this procedure, a long rigid or flexible tube with a lens and light at the end (ureteroscope) is used to look at the inside of the kidneys and the ureters. The ureters are the tubes that carry urine from the kidneys to the bladder. The ureteroscope is inserted into one or both of the ureters. You may need this procedure if you have frequent urinary tract infections (UTIs), blood in your urine, or a stone in one or both of your ureters. A ureteroscopy can be done: ??? To find the cause of urine blockage in a ureter and to evaluate other abnormalities inside the ureters or kidneys. ??? To remove stones. ??? To remove or treat growths of tissue (polyps), abnormal tissue, and some types of tumors. ??? To remove a tissue sample and check it for disease under a microscope (biopsy). Tell a health care provider about: ??? Any allergies you have. ??? All medicines you are taking, including vitamins, herbs, eye drops, creams, and cwuw-mhg-okwwshj medicines. ??? Any problems you or family members have had with anesthetic medicines. ??? Any bleeding problems you have. ??? Any surgeries you have had. ??? Any medical conditions you have. ??? Whether you are or may be . What are the risks? Your health care provider will talk with you about risks. These may include: ??? Abdominal pain or a burning feeling or pain while urinating. ??? Abnormal bleeding. ??? A UTI. ??? Allergic reactions to medicines. ??? Scarring that narrows the ureter (stricture) or swelling. ??? Creating a hole (perforation) in the ureter. ??? Damage to other structures or organs, such as the part of your body that drains urine from your bladder (urethra), your bladder, or your uterus. What happens before the procedure? When to stop eating and drinking ??? 8 hours before your procedure ? Stop eating most foods. Do not eat meat, fried foods, or fatty foods. ? Eat only light foods, such as toast or crackers. ? All liquids are okay except energy drinks and alcohol. ??? 6 hours before your procedure ? Stop eating. ? Drink only clear liquids, such as water, clear fruit juice, black coffee, plain tea, and sports drinks. ? Do not drink energy drinks or alcohol. ??? 2 hours before your procedure ? Stop drinking all liquids. ? You may be allowed to take medicines with small sips of water. Medicines Ask your health care provider about: ??? Changing or stopping your regular medicines. These include any diabetes medicines or blood thinners you take. ??? Taking medicines such as aspirin and ibuprofen. These medicines can thin your blood. Do not take these medicines unless your health care provider tells you to. ??? Taking fdgl-vyj-wlrhekc medicines, vitamins, herbs, and supplements. General instructions ??? Do not use any products that contain nicotine or tobacco for at least 4 weeks before the procedure. These products include cigarettes, chewing tobacco, and vaping devices, such as e-cigarettes. If you need help quitting, ask your health care provider. ??? If you will be going home right after the procedure, plan to have a responsible adult: ? Take you home from the hospital or clinic. You will not be allowed to drive. ? Care for you for the time you are told. ??? Ask your health care provider what steps will be taken to help prevent infection. These may include: ? Washing skin with a soap that kills germs. ? Receiving antibiotic medicine. Tests ??? You may have an exam or testing. ? You may have a urine sample taken to check for infection. What happens during the procedure? An IV will be inserted into one of your veins. ??? You may be given: ? A sedative. This helps you relax. ? Anesthesia. This will: ? Numb certain areas of your body. ? Make you fall asleep for surgery. ??? Your urethra will be cleaned with a germ-killing solution. ??? The ureteroscope will be passed through your urethra into your bladder. ??? A salt-water solution will be sent through the ureteroscope to fill your bladder. This will help the health care provider see the openings of your ureters more clearly. ??? The ureteroscope will be passed into your ureter. ? If a growth is found, a biopsy may be done. ? If a stone is found, it may be removed through the ureteroscope, or the stone may be broken up using a laser, shock waves, or electrical energy. ? In some cases, if the ureter is too small, a tube may be inserted that keeps the ureter open (ureteral stent). The stent may be left in place for 1 or 2 weeks, and then the ureteroscopy procedure will be done again. ??? The scope will be removed, and your bladder will be emptied. The procedure may vary among health care providers and hospitals. What happens after the procedure? (more content not included)... [facility] 08-21-2024 History of Presen t illness Narrative Images from the original note were not included. Bina Segal is a 53 y.o. female presents with chief complaint of ER Follow-up (Kidney stone) HPI: History of Present Illness The patient is here today for a follow-up of her recent emergency room visit. She has a previous history of kidney stones. A CAT scan was reviewed. She was advised to maintain high hydration levels and will be referred to urology for management of her multiple kidney stones. Her constipation, which was the initial reason for her emergency room visit, has somewhat improved. She does have some left lower quadrant discomfort, but no fevers, chills, or sweats. The discomfort is somewhat relieved when she has a bowel movement. She is not due for a colonoscopy and has regular follow-ups with Gastroenterology. The use of MiraLAX on a regular basis was discussed to keep her bowel movements regular, along with the continuation of her other medications. MEDICATIONS: Current Outpatient Medications Medication Instructions cephalexin (Keflex) 500 MG capsule TAKE 1 CAPSULE TWICE A DAY FOR 5 DAYS citalopram (CeleXA) 20 MG tablet TAKE 1 [...] (ADIPEX-P) 37.5 mg, Oral, Daily before breakfast sulfamethoxazole-trimethoprim (Bactrim DS) 800-160 MG per tablet 1 tablet, Oral, 2 times daily SUMAtriptan (IMITREX) 100 mg, Oral, Once as needed ALLERGIES: No Known Allergies Review of Systems Constitutional: Negative for chills, fatigue and fever. Respiratory: Negative for cough and shortness of breath. Cardiovascular: Negative for chest pain, palpitations and leg swelling. Gastrointestinal: Positive for constipation. Negative for blood in stool, diarrhea, nausea and vomiting. Skin: Negative for rash. Neurological: Negative for dizziness and light-headedness. Medical, Surgical, Family, and Social History reviewed. OBJECTIVE: Visit Vitals BP 112/78 (BP Location: Right arm, Patient Position: Sitting, BP Cuff Size: Adult) Pulse 86 Temp 98 F (Temporal) Ht 5' 3 Wt 158 lb LMP (LMP Unknown) SpO2 98% BMI 27.99 kg/m OB Status Hysterectomy Smoking Status Every Day BSA 1.79 m BP Readings from Last 3 Encounters: 08/21/24 112/78 06/28/24 120/72 05/15/24 138/80 Wt Readings from Last 3 Encounters: 08/21/24 158 lb 06/28/24 160 lb 05/15/24 158 lb Physical Exam Physical Exam Patient is a pleasant lady in no apparent distress. Equal air entry bilaterally in the lungs, with no crackles. Heart sounds are normal with no gallops, murmurs, or rubs. Abdomen is soft with no hepatosplenomegaly. There is no guarding or rebound. There is some very minimal discomfort to deep palpation which is quite localized to a small area in the left lower quadrant. No clubbing or cyanosis in the musculoskeletal system. Results Imaging CAT scan shows multiple kidney stones. ASSESSMENT AND PLAN: Assessment & Plan 1. Kidney stones. She has a previous history of kidney stones and recent CAT scan confirmed the presence of multiple kidney stones. She was advised to maintain high hydration levels. A referral to urology will be made for further management. 2. Constipation. Her constipation has somewhat improved since the emergency room visit. She experiences some left lower quadrant discomfort, which is somewhat relieved by bowel movements. She is not due for a colonoscopy and has regular follow-ups with Gastroenterology. She will continue using MiraLAX on a regular basis to maintain bowel movements and will continue her other medications. Assessment/Plan Health Maintenance Due Topic Date Due Influenza Vaccine (1) 10/22/2024 documented in this encounter [facility] 08-17-2024 Telephone encounter Note Pt called in she made a hospital fu appointment but in the mean time with her kidney stone and the inflammation around the kidney she is asking for an antibiotic. Please send to [facility] Vikki [facility] 08-17-2024 Miscellaneous Notes Pt called in she made a hospital fu appointment but in the mean time with her kidney stone and the inflammation around the kidney she is asking for an antibiotic. Please send to [facility] [place] documented in this encounter [facility] 06-28-2024 History of Presen t illness Narrative Images from the original note [...] for this patient. documented in this encounter [facility] 04-23-2024 Note Colonoscopy Procedur e Report Patient: [...] place. Impression and Plan Diagnosis: Colon polyps ([id number] K63.5, Discharge, Medical). Recommendations: Repeat colonoscopy:: In 5 years. Follow-up:: Await biopsy results in 3-5 days. Diet:: Regular diet. Medication resumption:: Continue current medications. Return to activities:: After 24 hours. Education and Follow-up: Counseled: Family. [facility] Comment on above: Other Comment: Chantal fleming Attachment - attachment storage system not supported [id number] Can be viewed in source systemMissing Attachment - attachment storage system not supported [id number] Can be viewed in source systemMissing Attachment - attachment storage system not supported [id number] Can be viewed in source systemMissing Attachment - attachment storage system not supported [id number] Can be viewed in source systemMissing Attachment - attachment storage system not supported [id number] Can be viewed in source system 04-23-2024 Evaluation + Plan note Extrac tori from: Title:ANES Post-operative Note - General Author: Robert Rangel Jr., DO Date:04/23/24 Plan Transfer/Discharge: Transfer/Discharge Discharge when meets criteria ( From PACU to Ambulatory Surgery Unit, and To home ). Extracted from: Title:ANES Pre-operative Note - Endo Author:Areli loya Jr. Robert Date:04/23/24 Plan [place] [employer] (ASA) physical status classification: Class II. Anesthetic Preoperative Plan: Anesthesia General, and -TIVA. [facility] 03-03-2025 Hospital Discharge instructions Patient Education [...] 11/03/2004 Document Revised: 05/25/2018 Document Reviewed: 05/25/2018 [employer] Patient Education 2020 [email or web address]. 04/23/2024 08:21:37 Colonoscopy, Care After Surgery Salam [...] Up Care 03/27/2024 15:56:24 With:Apolinar RADER Address: [address], [address] [address]- Business (1) When:1 to 2 weeks [facility] 03-03-2025 NoteProgress Note-Physician Patient: BINA SEGAL Age: 53 years Sex: Female : 1970 Associated Diagnoses: None Author: Robert Rangel Jr., DO Postoperative Information Postoperative disposition: Postoperative disposition: Home. Optimetrix number: Optimetrix number [id number]. Anesthetic utilized: General. Physical Examination Vital Signs [...] to Ambulatory Surgery Unit, and To home ).[facility] Comment: Electronically Signed By: Robert Rangel Jr., DO\.br\Date and Time Signed: 04/23/24 09:17 [id number] NotePatient Education - Text Colon Polyps Polyps [...] 11/03/2004 Document Revised: 05/25/2018 Document Reviewed: 05/25/2018 [employer] Patient Education ??? 2020 [email or web address]. Colonoscopy Care After Surgery Please read the [...] ACTIVITY You may r (more content not included)...[facility]03-03[facility]2025 NoteHistory and Physical Patient: BINA SEGAL Age: 53 years Sex: Female : 1970 Associated Diagnoses: None Author: Apolinar RADER MD Results Review no changes to H & PFisher [facility] CenterComment on above:Result Comment: Electronically Signed By: Apolinar RADER MD\.br\Date and Time Signed: 04/23/24 07:35 [id number] NoteProgress Note-Physician Patient: BINA SEGAL Age: 53 [...] prep, # 8 tab(s), Refills(s) 0, Pharmacy: [facility]/pharmacy #[id number], 160, cm, 03/27/24 15:27:00 EST, Height/Length Dosing, [...] pain, left lower quadrant / SNOMED CT 532756840 / Confirmed Anxiety / SNOMED CT 16254895 / Confirmed BMI 28.0-28.9,adult / SNOMED CT 9603474435 / Confirmed Change in bowel habits / SNOMED CT 539977658 / Confirmed Chronic fatigue syndrome / SNOMED CT 85653776 / Confirmed Cyst of kidney / SNOMED CT 8795531135 / Confirmed Irritable bowel syndrome with constipation / SNOMED CT 8674432451 / Confirmed Migraine / SNOMED CT 13571212 / Confirmed Overweight / SNOMED CT 209141925 / Confirmed Smoker / SNOMED CT 118044476 / Confirmed Urethral stenosis / SNOMED CT 379202703 / Confirmed Canceled: Migraines / SNOMED CT 51228858 Histories Past Medical History: No active or resolved past medical history items have been selected or recorded. Procedure history: Tonsillectomy (681467373). Cervical discectomy (516810042). Abdominal hysterectomy (855411047). Colonoscopy (740002862). Social History Social & Psychosocial Habits Alcohol [...] Respirations are non-labored. Cardiovascular: Regular rhythm. Plan [place] [employer] Anesthesiologists (ASA) physical status classification: Class II. Anesthetic Preoperative Plan: Anesthesia General, and -TIVA.[facility] WestComment on above:Result Comment: Electronically Signed By: Robert Rangel Jr., DO.jose alberto\Date and Time Signed: 04/23/24 07:19 [id number] Miscellaneous Notes* Telephone Encounter - Kam Suazo - 04/04/2024 2:25 PM EST scheduled * Telephone Encounter - Denise Paulson LPN - 04/04/2024 11:07 AM EST Referral from Dr. Segal to Dr. Kasper for Cystocele, NEW Patient - schedule 1st available spot even if not new, not back to back with another New patient or procedure documented in this encounterSaint [facility]–SmithvilleTkzziqjoia88-01-7050 Telephone encounter Note* Telephone Encounter - Kam Suazo - 04/04/2024 2:25 PM EST scheduled [facility]SmithvilleSrbdnklmby22-61-8435 Telephone encounter Note* Telephone Encounter - Denise Paulson LPN - 04/04/2024 11:07 AM EST Referral from Dr. Segal to Dr. Kasper for Cystocele, NEW Patient - schedule 1st available spot even if not new, not back to back with another New patient or procedure [facility]SmithvilleSvlfqnujsj01-48-6769 History of Present illness Narrative* Aziza Segal [...] softeners. Discussed MiraLAX options. Advised to follow mail messenger's protocol for colonoscopy on 04/23/2024. 2. Weight [...] divalproex for migraine management. Advised not to steel pickler new refills until necessary due to excess supply. Follow-up in 3 months. Assessment/Plan Health Maintenance Due Topic Date Due Colorectal Cancer Screening Never done documented in this encounterSaint Luke's North Hospital–SmithvilleJjqccpzyxd76-35-4046 NoteGeneral Surgery Office/Clinic Note Chief Complaint consultation [...] bowel prep, # 8 tab(s),Refills(s) 0, [id number], cm, 03/27/24 15:27:00 EST, Height/Length Dosing, 73.6, kg, 03/27/24 15:27:00 EST, Weight Dosing E&M of Est. Patient Moderate 30-39 Min 07510 2. Change in bowel habits (R19.4: Change in bowel habit) see # 1 Ordered: ondansetron, 4 mg = 1 tab(s), Oral, q6hr, PRN Nausea, take as needed day of bowel prep, # 8 tab(s),Refills(s) 0, Pharmacy: [facility]/pharmacy #[id number], 160, cm, 03/27/24 15:27:00 EST, Height/Length Dosing, 73.6, kg, 03/27/24 15:27:00 EST, Weight Dosing E&M of Est. Patient Moderate 30-39 Min 84707 3. Irritable bowel syndrome with constipation (K58.1: Irritable bowel syndrome with constipation) see # 1 Ordered: ondansetron, 4 mg = 1 tab(s), Oral, q6hr, PRN Nausea, take as needed day of bowel prep, # 8 tab(s),Refills(s) 0, [id number] 160, cm, 03/27/24 15:27:00 EST, Height/Length Dosing, 73.6, kg, 03/27/24 15:27:00 EST, Weight Dosing E&M of Est. (more content not included)...[facility] - WestComment on above:Result Comment: Electronically Signed By: BARRERA PAIGE, Apolinar Hill\Date and Time Signed: 03/27/24 16:02 [id number] Telephone encounter Note* Telephone Encounter - Kathy Vazquez - 02/06/2024 10:15 AM EST Needs refill on phentermine sent to [facility] in [place]. She is on her last pill. [facility]SmithvilleYugiuhzvgv81-57-7532 Miscellaneous Notes* Telephone Encounter - Kathy George - 02/06/2024 10:15 AM EST Needs refill on phentermine sent to [facility] in [place]. She is on her last pill. documented in this encounterSaint Luke's North Hospital–SmithvilleUcvrcvqoox48-16-2871 History of Present illness Narrative* Aziza Segal [...] of 39 and has not seen a special education teachers since. She is experiencing discomfort with into [...] to a cystocele. A referral to a special education teachers was made for further evaluation and management. She will be contacted by the referral center soon. 3. weight loss. doing very well. Same meds Follow-up Return in 3 months for follow up. Assessment/Plan Health Maintenance Due Topic Date Due Colorectal Cancer Screening Never done Mammogram 03/25/2023 documented in this encounterSaint Luke's [facility] Hospital–SmithvilleLswkjrejcn51-39-8545 History of Present illness Narrative* Aziza Segal [...] Never done Mammogram 03/25/2023 documented in this encounterSaint Luke's North Hospital–SmithvilleCeivlcjuie02-00-7877 History of Present illness Narrative* Aziza Segal [...] bumps or rashes. 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 She is considering using a donut cushion for relief but finds them uncomfortable. She is planning to attend a [employer] game next weekend where the seating is [...] pounds. A fresh prescription was sent to [facility] in [place]. The potential benefits and drawbacks of a compounded version of Ozempic were discussed, but she opted to continue with her current medication. She experiences jitteriness for the first hour after taking the medication, but it subsides thereafter. 2. Coccyx pain. Valeria was recommended for pain management. She was advised to avoid sitting on hard surfaces and consider using a foam cushion for comfort. If the pain persists, a note for a padded chair can be provided for her workplace. Assessment/Plan Health Maintenance Due Topic Date Due Colorectal Cancer Screening Never done Mammogram 03/25/2023 documented in this encounterSaint Luke's North Hospital–SmithvilleCfbzecmwga63-34-1440 History of Present illness Narrative* Radha Allen - 04/04/2023 6:30 PM EST Bina Segal is a 52 [...] Continue to follow with dermatology. Entered by _Jett_, acting as scribe for Dr. Timmons_. Signature _Mikie PAIGE_ Date _04/04/2023_. The documentation recorded by the scribe accurately reflects the service(s) I personally performed and the decisions I made. documented in this encounterSaint Luke's North Hospital–SmithvilleWhtcsvfwje49-57-5411 History of Present illness Narrative* Haven Calderon Roshni, DEPARTMENT MANAGER-[facility] - 03/24/2023 1:25 PM EST Rash Location: [...] nonspecific skin eruption Left Wrist - Anterior Puryear patches and plaques Lesion biopsy - Left [...] Visit: pending biopsy results documented in this encounterSaint Luke's North Hospital–SmithvilleZwypkpppol99-44-1429 History of Present illness Narrative* Sabino Laughlin MA - 02/17/2023 2:45 PM EST Bina Segal [...] gave S/E. Ubrevy nausea [facility] + Plan note No data available for this section [facility] Future Appointments Appointment Date:04/23/2024 08:00:00 AM Scheduled Provider: Location:[facility] Appointment Type:Surgery [facility] [place] Evaluation + Plan note Future Appointments Appointment Date:09/24/2024 09:00:00 AM Scheduled Provider: Location:[facility] Appointment Type:Surgery [facility] Appointment Date:09/26/2024 10:15:00 AM Scheduled Provider: Location:[facility] Appointment Type:[facility] Evaluation note* Diagnosis Rash and other nonspecific skin eruption- Primary Lichen planus documented in this encounter [facility] HealthcareEvaluation note* Diagnosis Chronic migraine without aura without status migrainosus, not intractable (CMS/HCC)- Primary Lichen planus documented in this encounter [facility] HealthcareEvaluation note* Diagnosis Coccydynia- Primary Other disorder [...] 31.9 in adult documented in this encounter [facility]* [...] in this encounter [facility]* Diagnosis Kidney stones- Primary Calculus of kidney Chronic migraine without aura without status migrainosus, not intractable LLQ pain Abdominal pain, left lower quadrant Chronic constipation Unspecified constipation documented in this encounter [facility] Discharge instructions No data available for this section [facility] HospitalProgress note No data available for this section [facility] HospitalReason for referral (narrative)* Consultation (Routine) - Authorized Specialty Diagnoses / Procedures Referred By Sukhi duggan Referred To Contact Gastroenterology Diagnoses Screening for colon cancer Procedures NC OFFICE/OUTPATIENT NEW HIGH MDM 60 MINUTES Aziza Segal MD [address] [place] [address] Gregory Jang MD [address], [address], [address] [address] Referral ID Status Reason Start Date Expiration Date Visits Requested Visits Authorized [id number] Authorized Specialty Services Required 11/04/2023 05/02/2024 1 1 [facility] Summary Purpose Family History No Family History Records FoundNo Family History Records Found No data available for this section No data available for this section No Family History Records FoundNo Family History Records FoundNo Family History Records FoundNo Family History Records Found No data available for this section No Family History Records Found Advance Directives No Advanced Directives Records FoundNo Advanced Directives Records FoundNo Advanced Directives Records FoundNo Advanced Directives Records FoundNo Advanced Directives Records FoundNo Advanced Directives Records FoundNo Advanced Directives Records Found Additional Source Comments INFORMATION SOURCE (unrecogn ized section and content) DATE CREATED AUTHOR 03/01/2021 [facility] [place] [facility] DATE CREATED AUTHOR AUTHOR'S ORGANIZ ATION 04/05/2021 [facility] dical Specialist DATE CREATED AUTHOR AUTHOR'S ORGANIZ ATION 04/27/2024 [facility] DATE CREATED AUTHOR AUTHOR'S ORGANIZ ATION 05/10/2024 [facility] DATE CREATED AUTHOR AUTHOR'S ORGANIZ ATION 08/12/2024 [facility] DATE CREATED AUTHOR AUTHOR'S ORGANIZ ATION 08/22/2024 [facility] dical Specialists EPIC DATE CREATED AUTHOR AUTHOR'S ORGANIZ ATION 09/02/2024 [facility] Patient Care team informatio n (unrecognized section and content) [employer] Assembler Relationship Specialty Start Date End Date Hilda May MD [address] [place] [address] PCP - [place] [facility] 07/22/22 Aziza Segal MD [address] [place] [address] PCP - General Family Medicine 08/13/22 [employer]er Relationship Specialty Start Date End Date Hilda May MD [address] [place] [address] PCP - [place] 07/22/22 Aziza Segal MD [address] [place] [address] PCP - General Family Medicine 08/13/22 [employer] Assembler Relationship Specialty Start Date End Date Hilda May MD [address] [place] [address] PCP - [facility] 07/22/22 Aziza Segal MD [address] [place] [address] PCP - General Family Medicine 08/13/22 [employer] As[employer]er Relationship Specialty Start Date End Date Aziza Segal MD [address] [place] [address] PCP - General Family Medicine 08/13/22 Aziza Segal MD [address] [place] [address] PCP - [place] 03/24/23 [employer] Assembler Relationship Specialty Start Date End Date Aziza Segal MD [address] [place] [address] PCP - General Family Medicine 08/13/22 Aziza Segal MD [address] [place] [address] PCP - [place] 03/24/23 [employer] Assembler Relationship Specialty Start Date End Date Aziza Segal MD [address] [place] [address] PCP - General Family Medicine 08/13/22 Aziza Segal MD [address] [place] [address] PCP - [place] [facility] 03/24/23 [employer] Assembler Relationship Specialty Start Date End Date Aziza Segal MD [address] [place] [address] PCP - General Family Medicine 08/13/22 Aziza Segal MD [address] [place] [address] PCP - [place] 03/24/23 [employer] Assembler Relationship Specialty Start Date End Date Aziza Segal MD [address] [place] [address] PCP - General Family Medicine 08/13/22 Aziza Segal MD [address] [place] [address] PCP - [place] 03/24/23 [employer] Assembler Relationship Specialty Start Date End Date Aziza Segal MD [address] [place] [address] PCP - General Family Medicine 08/13/22 Aziza Segal MD [address] [place] [address] PCP - [place] [facility] 03/24/23 [employer] Assembler Relationship Specialty Start Date End Date Aziza Segal MD [address] [place] [address] PCP - General Family Medicine 08/13/22 Aziza Segal MD [address] [place] [address] PCP - [place] 03/24/23 [employer] Assembler Relationship Specialty Start Date End Date Aziza Segal MD [address] [place] [address] PCP - General Family Medicine 08/13/22 Aziza Segal MD [address] [place] [address] PCP - [place] 03/24/23 [employer] Assembler Relationship Specialty Start Date End Date Aziza Segal MD [address] [place] [address] PCP - General Family Medicine 08/13/22 Aziza Segal MD [address] [place] [address] PCP - [place] 03/24/23 [employer] Assembler Relationship Specialty Start Date End Date Aziza Segal MD [address] [place] [address] PCP - General Family Medicine 08/13/22 Aziza Segal MD [address] [place] [address] PCP - [place] [facility] 03/24/23 [employer] Assembler Relationship Specialty Start Date End Date Aziza Segal MD [address] [place] [address] PCP - General Family Medicine 08/13/22 Aziza Segal MD [address] [place] [address] PCP - [place] [facility] 03/24/23 [employer] Assembler Relationship Specialty Start Date End Date Aziza Segal MD [address] [place] [address] PCP - General Family Medicine 08/13/22 Aziza Segal MD [address] [place] [address] PCP - [place] [facility] 03/24/23 [employer] Assembler Relationship Specialty Start Date End Date Aziza Segal MD [address] [place] [address] PCP - General Family Medicine 08/13/22 Aziza Segal MD [address] [place] [address] PCP - [place] [facility] 03/24/23 [employer] Assembler Relationship Specialty Start Date End Date Hilda May MD [address] [place] [address] PCP - [place] 02/21/22 Aziza Segal MD [address] [place] [address] PCP - General Family Medicine 08/13/22 [employer] Assembler Relationship Specialty Start Date End Date Aziza Segal MD [address] [place] [address] PCP - General Family Medicine 08/13/22 Aziza Segal MD [address] [place] [address] PCP - [place] [facility] 03/24/23 [employer] Assembler Relationship Specialty Start Date End Date Aziza Segal MD [address] [place] [address] PCP - General Family Medicine 08/13/22 Aziza Segal MD [address] [place] [address] PCP - [place] [facility] [employer] 03/24/23 Reason for Visit (unrecogniz ed section and content) Reason Comments Rash Specialty Diagnoses / Procedures Referred By Sukhi t Referred To Contact Dermatology Diagnoses Lichen planus Procedures NC OFFICE/OUTPATIENT NEW HIGH MDM 60 MINUTES Aziza Segal MD [address] [place] [address] Zahra Pathak MD [address] [place] [address] Referral ID Status Reason Start Date Expiration Date V isits Requested Visits Authorized [id number] Closed Specialty Services Required 02/17/2023 08/16/2023 1 [...] Reason Onset Date Comments Med Refill 08/03/2024 Reason Onset Date Comments Medication Question 08/17/2024 Reason Comments ER Follow-up Kidney stone FOR RECORDS PERTAINING TO PATIENTS WHO ARE [...] BE BASED ON THE PRIMARY CLINICAL RECORDS. [employer] provides no warranty or guarantee of the accuracy or completeness of information in this document.
--- NOTE | 2024-09-24 13:25 | ED_ITS ---
HPI - Abdominal Pain General Chief Complaint: Abdominal Pain Stated Complaint: ABDOMINAL PAIN Time Seen by Provider: 09/24/24 12:33 History of Present Illness HPI narrative: The patient presented to us with a left lower quadrant abdominal pain that has been going on for at least few weeks, according to the patient got worse over the last 2 days associated with diarrhea ,associated with nausea and vomiting The patient mentioned that she does have a history of kidney stone and plan to go for lithotripsy. Related Data Home Medications ?Medication ?Instructions ?Recorded ?Confirmed citalopram 20 mg tablet 20 mg PO QDAY 10/07/2209/24 linaclotide 145 mcg capsule 145 mcg PO QDAY 10/07/22 0 09/24/24 (Linzess) divalproex 500 mg tablet,delayed mg PO 09/24/24 release sumatriptan succinate 100 mg tablet mg PO 09/24/24 Previous Rx's ?Medication ?Instructions ?Recorded ketorolac 10 mg tablet 10 mg PO Q8H PRN pain 4 days #10 09/24/24 tabs Allergies Allergy/AdvReac Type Severity Reaction Status Date / Time No Known Drug Allergies Allergy Verified 09/24/24 12:38 Review of Systems ROS Status of ROS 10 or more systems reviewed and unremark able except as noted in history and below [facility] History (Updated 09/24/24 @ 14:33 by Judith Choudhury MD) Chronic fatigue syndrome ?G93.32 - Myalgic encephalomyelitis/chronic fatigue syndrome (ICD-10) Change in bowel habits ?R19.4 - Change in bowel habit (ICD-10) Left lower quadrant pain ?R10.32 - Left lower quadrant pain (ICD-10) Gestational diabetes ?O24.419 - Gestational diabetes mellitus in , unspecified control (ICD-10) Anemia ?D64.9 - Anemia, unspecified (ICD-10) Anxiety ?F41.9 - Anxiety disorder, unspecified (ICD-10) Migraine ?G43.909 - Migraine, unspecified, not intractable, without status migrainosus (ICD-10) Kidney stones ?N20.0 - Calculus of kidney (ICD-10) Surgical History (Updated 10/07/22 @ 13:36 by Reba Nelson NP) History of colonoscopy ?Z98.890 - Other specified postprocedural states (ICD-10) History of tonsillectomy ?Z90.89 - Acquired absence of other organs (ICD-10) History of spinal surgery ?Z98.890 - Other specified postprocedural states (ICD-10) History of hysterectomy ?Z90.710 - Acquired absence of both cervix and uterus (ICD-10) Family History (Updated 10/07/22 @ 13:36 by Reba Nelson NP) Other CHF (congestive heart failure) Family history of colon cancer Family history of hypertension Family history of leukemia Family history of ovarian cancer Social History (Updated 10/07/22 @ 13:31 by Reba Nelson NP) Within the past year, how often did you have a drink containing alcohol: never Score interpretation: A score less than 3 is consistent with normal alcohol consumption. 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 General: Well-appearing and in no apparent distress. Skin: Warm, dry, no pallor noted. No rash. Head: Normocephalic, atraumatic. Neck: Supple, non-tender. Eye: Pupils are equal, round and EOMI. No scleral icterus. Cardiovascular: Regular Rate and Rhythm without murmur, gallop or rub. Respiratory: No accessory muscle use or respiratory distress. Lungs are clear to auscultation, no wheezing, rales or rhonchi Chest Wall: no tenderness Back: No midline thoracic or lumbar vertebral tenderness. No CVA tenderness Musculoskeletal: normal ROM, no calf or popliteal tenderness, no lower extremity edema/swelling GI: Abdomen is soft, non-distended. Normal bowel sounds. Left lower quadrant tenderness. Neurological: A&O x4. No cranial nerve dysfunction observed. No truncal ataxia. Moves all extremities. Sensation intact. Psychiatric: Cooperative and interactive. Normal mood and affect. Constitutional Vital Signs, click to edit/add: Last Vital Signs Temp 98.3 F 09/24/24 12:39 Pulse 78 09/24/24 12:39 Resp 18 09/24/24 12:39 BP 123/59 09/24/24 12:39 Pulse Ox 98 09/24/24 12:39 O2 Del Method Room Air 09/24/24 12:39 Course Vital Signs Vital signs: Vital Signs Temperature 98.3 F 09/24/24 12:39 Pulse Rate 78 09/24/24 12:39 Respiratory Rate 18 09/24/24 12:39 Blood Pressure 123/59 09/24/24 12:39 Pulse Oximetry 98 09/24/24 12:39 Oxygen Delivery Method Room Air 09/24/24 12:39 Temperature 98.3 F 09/24/24 12:39 Pulse Rate 78 09/24/24 12:39 Respiratory Rate 18 09/24/24 12:39 Blood Pressure 123/59 09/24/24 12:39 Pulse Oximetry 98 09/24/24 12:39 Oxygen Delivery Method Room Air 09/24/24 12:39 MDM - Abdominal Pain MDM Narrative Medical decision making narrative: The patient pain right now was controlled with Toradol She mentioned that she is not taking anything [id number] for pain control The patient denies any fever or chills CBC and chemistry showed no acute pathology with a urinalysis showed no UTI The patient CAT scan showed that she have a 1.5 cm left renal pelvic kidney stone, which is not correlated with the patient current presentation of pain in the left lower quadrant associated with diarrhea and increased with eating Right now the patient presentation could be due to mild colitis and I did explain to the patient that right now just supportive care with anti- inflammatory and hydration as well as liquid diet for the next few days as the plan The patient also had her urologist Dr. Aguilar informed of the presentation to the ER and Dr. Aguilar agreed that the patient current presentation is not related to the kidney stone and the patient will be discharged to follow-up with her on Tuesday for lithotripsy within 2 days The patient is to follow up with primary care physician in next 2-3 days or to return to the emergency department should any of the signs or symptoms worsen or new symptoms develop. The patient agrees with the following Diagnosis and Treatment plan and the patient will be discharged home. Lab Data Labs: Lab Results 09/24/24 09/24/24 Range/Units 12:35 13:15 WBC 9.9 (4.0-11.0) 10^3/uL RBC 4.21 (4.20-5.40) 10^6/uL Hgb 13.0 (12.0-16.0) g/dL Hct 37.7 (36.0-48.0) % MCV 89.5 (81.0-99.0) fL MCH 30.9 (26.7-34.0) pg MCHC 34.5 (29.9-35.2) g/dL RDW 12.7 (11.0-15.0) % Plt Count 280 (150-450) 10^3/uL MPV 9.3 L (9.5-13.5) fL Neut % (Auto) 60.0 (43.0-75.0) % Lymph % (Auto) 28.1 (20.5-60.0) % [place] % (Auto) 8.9 (1.7-12.0) % Eos % (Auto) 2.0 (0.9-7.0) % Baso % (Auto) 0.7 (0.2-2.0) % Neut # (Auto) 6.0 (1.4-6.5) 10^3/uL Lymph # (Auto) 2.8 (1.2-3.8) 10^3/uL [place] # (Auto) 0.9 H (0.3-0.8) 10^3/uL Eos # (Auto) 0.2 (0.0-0.7) 10^3/uL Baso # (Auto) 0.1 (0.0-0.1) 10^3/uL Abs Immat Gran (auto) 0.03 (0.00-0.03) 10^3/uL Imm/Tot Granulo (auto) 0.3 (0.0-0.5) % Sodium 142 (136-145) mmol/L Potassium 4.2 (3.5-5.1) mmol/L Chloride 107 (98-107) mmol/L Carbon Dioxide 29.3 (21.0-32.0) mmol/L Anion Gap 9.9 BUN 19.0 H (7.0-18.0) mg/dL Creatinine 0.72 (0.55-1.02) mg/dL Est GFR ( Amer) >60 (>=60 mL/min/1.73m^2) Est GFR (Non-Af Amer) >60 (>=60 mL/min/1.73m^2) BUN/Creatinine Ratio 26.4 Glucose 86 (74-106) mg/dL Calcium 8.9 (8.5-10.1) mg/dL Total Bilirubin 0.2 (0.2-1.0) mg/dL AST 13 L (15-37) U/L ALT 20 (14-59) U/L Alkaline Phosphatase 73 (46-116) U/L Total Protein 6.8 (6.4-8.2) g/dL Albumin 3.3 L (3.4-5.0) g/dL Globulin 3.5 g/dL Albumin/Globulin Ratio 0.9 Urine Color Yellow (YELLOW) Urine Clarity Clear (CLEAR) Urine pH 7.0 (5.0-9.0) Ur Specific [place] 1.025 (1.005-1.025) Urine Protein 30 A (NEG/TRACE) mg/dL Urine Glucose (UA) Negative (NEGATIVE) mg/dL Urine Ketones 15 A (NEGATIVE) mg/dL Urine Occult Blood Moderate A (NEGATIVE) Urine Nitrite Negative (NEGATIVE) Urine Bilirubin Negative (NEGATIVE) Urine Urobilinogen 0.2 (0.2-1.0) EU/dL Ur Leukocyte Esterase Trace A (NEGATIVE) Urine RBC 20-50 A (0-2) #/HPF Urine WBC 0-2 A (NONE SEEN) #/HPF Ur Squamous Epith Cells Few A (NONE/RARE) #/LPF Urine Crystals None seen (None Seen) #/HPF Urine Bacteria Trace A (NONE SEEN) #/HPF Urine Casts None seen (NONE SEEN) #/LPF Urine Mucus Small A (NONE SEEN) Ur Culture Indicated? No Discharge Plan Discharge Chief Complaint: Abdominal Pain Clinical Impression: Abdominal pain Patient Disposition: Home, Self-Care Time of Disposition Decision: 14:32 Condition: Good Prescriptions / Home Meds: New ketorolac 10 mg tablet 10 mg PO Q8H PRN (Reason: pain) 4 Days Qty: 10 0RF No Action sumatriptan succinate 100 mg tablet PO divalproex 500 mg tablet,delayed release (DR/EC) PO citalopram 20 mg tablet 20 mg PO QDAY Linzess 145 mcg capsule 145 mcg PO QDAY Print Language: Taiwanese Instructions: Abdominal Pain (ED), Full Liquid Diet (DC) Referrals: AZIZA SEGAL [Primary Care Provider, Family Practice] - 1 week Discharge Date/Time: 09/24/24 14:48
[2024-09-24] MEDS: KETOROLAC TROMETHAMINE 30 MG/ML VIAL IVP (13:30)
[2024-09-24 13:31] LABS: Hematocrit 37.7 % (36.0-48.0); Hemoglobin 13.0 g/dL (12.0-16.0); Immature Granulocytes Abs Auto 0.03 10^3/uL (0.00-0.03); Immature Granulocytes Pct Auto 0.3 % (0.0-0.5); Lymphocytes Absolute Auto 2.8 10^3/uL (1.2-3.8); Mean Corpuscular HGB Conc 34.5 g/dL (29.9-35.2); Mean Corpuscular Hemoglobin 30.9 pg (26.7-34.0); Mean Corpuscular Volume 89.5 fL (81.0-99.0); Platelet Count 280 10^3/uL (150-450); Red Blood Count 4.21 10^6/uL (4.20-5.40); White Blood Count 9.9 10^3/uL (4.0-11.0)
[2024-09-24 13:32] LABS: Glucose Urine UA NEGATIVE (NEGATIVE)
[2024-09-24 13:48] LABS: Alanine Aminotransferase 20 U/L (14-59); Albumin Globulin Ratio 0.9; Albumin Level 3.3 g/dL (3.4-5.0); Alkaline Phosphatase 73 U/L (46-116); Anion Gap 9.9; Aspartate Amino Transferase 13 U/L (15-37); Blood Urea Nitrogen 19.0 mg/dL (7.0-18.0); Calcium 8.9 mg/dL (8.5-10.1); Carbon Dioxide 29.3 mmol/L (21.0-32.0); Chloride 107 mmol/L (98-107); Estimated GFR (African America >60 (>=60 mL/min/1.73m^2); Estimated GFR (Non-African Ame >60 (>=60 mL/min/1.73m^2); Globulin 3.5 g/dL; Glucose 86 mg/dL (74-106); Potassium 4.2 mmol/L (3.5-5.1); Sodium 142 mmol/L (136-145); Total Protein 6.8 g/dL (6.4-8.2)
[2024-09-24 13:49] LABS: Cast Seen? NONE SEEN #/LPF (NONE SEEN); Crystals Seen? None Seen #/HPF (None Seen); Urine Culture Indicated NO
== END 2024-09-24 14:48 | disposition home or self-care (01) ==
PROVIDERS: Emergency Provider Emergency Medicine; PCP Family Medicine
DX: R10.32 Left lower quadrant pain (principal); Z87.442 Personal history of urinary calculi; Z90.710 Acquired absence of both cervix and uterus; F17.210 Nicotine dependence, cigarettes, uncomplicated; N13.2 Hydronephrosis with renal and ureteral calculous obstruction
CPT/HCPCS: 36415; 74176; 80053; 81001; 85025; 96374; 96375; 99285; J1885; J2405